=== PATIENT | female | born 1940 | race Two or more races ===

== ENCOUNTER 2020-03-02 18:00 | Inpatient (IN) | payer OTHER ==
[~2020-03-02] VITALS: Ht 154.9 cm; Wt 87.2 kg
[2020-03-02] MEDS ORDERED: SODIUM CHLORIDE 0.9% 500 ML IV ONE (18:45)
[2020-03-02] MEDS ORDERED: ONDANSETRON HCL 4 MG/2 ML VIAL IV ONE (18:45)
[2020-03-02] MEDS ORDERED: cefTRIAXone 1GM/50ML D5W 50 ML IV ONE (18:45)
[2020-03-02 19:04] LABS: Basophils # (auto) 0 10 ^3/uL (0-0.2); Basophils % (auto) 0.4 % (0.0-2.0); Eosinophils # (auto) 0 10 ^3/uL (0-0.8); Eosinophils % (auto) 0.5 % (0.0-7.0); Hematocrit 43.2 % (36.0-46.0); Hemoglobin 14.5 g/dL (12.2-16.2); Lymphocytes # (auto) 1.1 10 ^3/uL (0.4-5.4); Lymphocytes % (auto) 13.3 % (10.0-50.0); Mean Corpuscular Hemoglobin 30.2 pg (28.0-32.0); Mean Corpuscular Hgb Conc. 33.6 g/dL (32.0-36.0); Mean Corpuscular Volume 89.9 fL (80.0-100.0); Monocytes # (auto) 1.1 10 ^3/uL (0-1.3); Monocytes % (auto) 13.2 % (0.0-12.0); Neutrophils # (auto) 6.1 10 ^3/uL (1.6-8.6); Neutrophils % (auto) 72.6 % (37.0-80.0); Nucleated Red Blood Cells % 0.1 %; Platelet Count (auto) 219 10^3/uL (140-450); Red Blood Cells 4.81 10^6/uL (4.0-5.20); Red Cell Distribution Width 13.6 % (11.8-14.3); White Blood Cell 8.4 10^3/uL (4.4-10.8)
[2020-03-02 19:16] LABS: Alanine Aminotransferase 17 U/L (13-56); Albumin 3.2 g/dL (3.4-5.0); Anion Gap 6 (5-15); Aspartate Aminotransferase 14 U/L (15-37); BUN/Creatinine Ratio 15.7; Blood Urea Nitrogen 11 mg/dL (7-18); Calcium 8.4 mg/dL (8.5-10.1); Carbon Dioxide 23 mmol/L (21-32); Chloride 108 mmol/L (98-107); GFR African American 104 mL/min; GFR Non-African American 86 mL/min; Glucose 120 mg/dL (74-106); Potassium 3.6 mmol/L (3.5-5.1); Sodium 137 mmol/L (136-145)
[2020-03-02 19:20] LABS: Alkaline Phosphatase 58 U/L (45-117); Bilirubin, Total 0.6 mg/dL (0.2-1.0); Total Protein 6.7 g/dL (6.4-8.2)
[2020-03-02 19:28] LABS: Amylase 35 U/L (25-115); Lipase 50 U/L (73-393)
[2020-03-02 19:33] LABS: INR 2.04 (0.9-1.15); Partial Thromboplastin Time 33.6 sec (23.64-32.05)
[2020-03-02] MEDS ORDERED: SODIUM CHLORIDE 0.9% 1,000 ML IV SCH (21:55)
[2020-03-02] MEDS ORDERED: ACETAMINOPHEN 325 MG TAB PO PRN (22:00)
[2020-03-02] MEDS ORDERED: TEMAZEPAM 15 MG CAP PO PRN (22:00)
[2020-03-02] MEDS ORDERED: ONDANSETRON HCL 4 MG/2 ML VIAL IV PRN (22:00)
[2020-03-02] MEDS ORDERED: MORPHINE SULF INJ 2 MG/ML SYRINGE 1ML IV PRN (22:00)
[2020-03-02] MEDS ORDERED: ALBUTEROL SULF HFA 90MCG INH 200DOSE IN SCH (22:00)
[2020-03-02] MEDS ORDERED: NITROGLYCERIN 0.4 MG SL TAB SL PRN (22:00)
[2020-03-02 22:21] LABS: Urine Bacteria NONE SEEN /hpf (None Seen); Urine Blood Negative /uL (Negative); Urine Specific Gravity 1.007 (1.001-1.035); Urine WBC 12 /hpf (0 - 5)
[2020-03-02 22:29] LABS: Magnesium 2.4 mg/dL (1.6-2.6)
[2020-03-02 22:38] LABS: CRP High Sensitivity 4.26 mg/dL (< 0.3)
[2020-03-02] MEDS: DOXYCYCLINE 100MG/250ML 250 ML IV SCH (22:53)
[2020-03-02] MEDS: FAMOTIDINE 20 MG TAB PO SCH (22:53)
--- NOTE | 2020-03-03 02:50 | NUR ---
Telemetry admit from ER JIMBO JHAVERI Gutierrez admitted to Telemetry unit after SBAR received. Patient oriented to RENNY PRICE RN primary RN, unit, room, bed, and unit policies regarding patient care and visiting hours. Patient now on continuous telemetry monitoring, tele box # 20 and telemetry reading on arrival to unit is A-Fib at 86BPM. Patient placed on bedside oxygen, weighed by bedscale and encouraged to call if they need something. All questions and concerns addressed, patient verbalized understanding.
[2020-03-03 04:01] VITALS: BP 127/70
[2020-03-03] MEDS ORDERED: METO-169 PO (05:25)
[2020-03-03] MEDS ORDERED: WARF7.5T20 PO (05:25)
[2020-03-03] MEDS ORDERED: WARF2.5T39 PO (05:25)
[2020-03-03] MEDS ORDERED: WARF5TAB71 PO (05:25)
[2020-03-03] MEDS ORDERED: AMLO5TAB15 PO ×2 (05:25→16:32)
[2020-03-03 06:20] LABS: Basophils # (auto) 0 10 ^3/uL (0-0.2); Basophils % (auto) 0.1 % (0.0-2.0); Eosinophils # (auto) 0 10 ^3/uL (0-0.8); Eosinophils % (auto) 0.2 % (0.0-7.0); Hemoglobin 13.3 g/dL (12.2-16.2); Mean Corpuscular Hgb Conc. 33.2 g/dL (32.0-36.0); Mean Corpuscular Volume 90.3 fL (80.0-100.0); Monocytes # (auto) 0.9 10 ^3/uL (0-1.3); Monocytes % (auto) 11.8 % (0.0-12.0); Neutrophils # (auto) 5.8 10 ^3/uL (1.6-8.6); Neutrophils % (auto) 74.9 % (37.0-80.0); Nucleated Red Blood Cells % 0.1 %; Platelet Count (auto) 197 10^3/uL (140-450); Red Blood Cells 4.43 10^6/uL (4.0-5.20); Red Cell Distribution Width 13.4 % (11.8-14.3); White Blood Cell 7.7 10^3/uL (4.4-10.8)
[2020-03-03 06:35] LABS: INR 2.29 (0.9-1.15); Partial Thromboplastin Time 38.2 sec (23.64-32.05)
[2020-03-03 06:36] LABS: Albumin 2.8 g/dL (3.4-5.0); Calcium 7.9 mg/dL (8.5-10.1)
[2020-03-03 06:38] LABS: BUN/Creatinine Ratio 16.1
[2020-03-03 06:41] LABS: Bilirubin, Total 0.6 mg/dL (0.2-1.0); Total Protein 6.1 g/dL (6.4-8.2)
--- NOTE | 2020-03-03 07:30 | NUR ---
Opening Shift Note Assumed care of patient, asleep and arouses to name and alert. No S/S of distress/SOB or pain. Bed in lowest and locked position with side rails up x2 and call light in reach. Instructed on POC and to call for assist PRN, will continue to monitor for changes Q1hr and PRN.
--- NOTE | 2020-03-03 07:40 | NUR ---
Respiratory note: PT AWAKE, AND ALERT. NO RESPIRATORY DISTRESS NOTED. SPO2 96% ON RA, HR 94, RR 18, BS CLEAR/DIMINISHED BILATERALLY. NO FURTHER RESPIRATORY INTERVENTION INDICATED AT THIS TIME. WILL CONTINUE TO MONITOR PT.
[2020-03-03 08:00] VITALS: BP 124/68
--- NOTE | 2020-03-03 08:45 | NUR ---
PAGED DR MUJICA. AWAITING CALL BACK.
[2020-03-03] MEDS ORDERED: SUMA25TA2 (08:56)
[2020-03-03] MEDS ORDERED: SUMAtriptan SUCCINATE 25 MG TAB PO PRN (09:00)
--- NOTE | 2020-03-03 09:00 | NUR ---
RECEIVED CALL BACK FROM DR. MUJICA. RN UPDATED DR MUJICA ON THE PATIENTS "HEAD ACHE". MD AWARE AND NEW ORDERS RECEIVED, READ BACK AND VERIFIED. SEE EMR FOR ORDERS.
[2020-03-03 10:00] VITALS: BP 106/64
[2020-03-03] MEDS ORDERED: CHOLECALCIFEROL (VITD3) 1,000UNIT=25mCg TAB PO SCH (10:00)
[2020-03-03] MEDS ORDERED: amLODIPine BESYLATE 5 MG TAB PO SCH (10:00)
[2020-03-03] MEDS ORDERED: METOPROLOL SUCCINATE XL 50 MG TAB PO SCH (10:00)
[2020-03-03] MEDS ORDERED: ASCORBIC ACID 1,000 MG TAB PO SCH (10:00)
[2020-03-03] MEDS ORDERED: ZINC SULFATE 220mg CAP or TAB PO SCH (10:00)
[2020-03-03] MEDS: DOXYCYCLINE 100MG/250ML 250 ML IV SCH (10:54)
[2020-03-03] MEDS: FAMOTIDINE 20 MG TAB PO SCH (10:55)
[2020-03-03 13:00] VITALS: BP 98/65
--- NOTE | 2020-03-03 15:20 | NUR ---
IV insertion IV "fell out" per patient statement. New IV access obtained, via clean sterile technique by inserting 22 gauge catheter at LEFT FA after 1 attempt(s). IV secured properly. No trauma to site. Patient tolerated well.
--- NOTE | 2020-03-03 15:25 | NUR ---
PT TRANSFER. REPORT GIVEN TO VALARIE SAINZ. PATIENT TRANSFERRED TO ROOM 276A VIA WHEEL CHAIR. PATIENT TRANSFERRED WITH ALL PERSONAL BELONGINGS. NO S/S OF SOB OR DISTRESS AT THIS TIME.
[2020-03-03] MEDS ORDERED: DOXY-112 PO (16:32)
[2020-03-03] MEDS ORDERED: WARFARIN SODIUM 2.5 MG TAB PO ONE (17:00)
--- NOTE | 2020-03-03 17:44 | NUR ---
Discharge instructions given as ordered. Encourage to follow up with PMD as instructed. All questions and concerns addressed. Patient verbalized understanding. IV removed with catheter intact, pressure dressing applied. Telemetry unit returned to ICU. Patient taken to vehicle via wheelchair with all personal belongings, accompanied by staff and family member. No distress noted at time of departure.
== END 2020-03-03 17:44 | disposition home or self-care (01) | DRG 311 ==
LOC: EDBD 18:00 → ER 18:00 → TELE 18:01 → TELE-EAST 23:53 → TELE-WESTW 03-03 15:25
PROVIDERS: ADMIT Nurse Practitioner; ATTEND Internal Medicine
DX: I24.9 Acute ischemic heart disease, unspecified (principal); D68.9 Coagulation defect, unspecified; N39.0 Urinary tract infection, site not specified; I48.20 Chronic atrial fibrillation, unspecified; I48.0 Paroxysmal atrial fibrillation; Z03.818 Encounter for observation for suspected exposure to other biological agents ruled out; Z68.36 Body mass index [BMI] 36.0-36.9, adult; E66.01 Morbid (severe) obesity due to excess calories; E78.5 Hyperlipidemia, unspecified; G43.909 Migraine, unspecified, not intractable, without status migrainosus; I50.9 Heart failure, unspecified; R06.03 Acute respiratory distress; I11.0 Hypertensive heart disease with heart failure; Z79.01 Long term (current) use of anticoagulants; Z82.3 Family history of stroke; Z82.49 Family history of ischemic heart disease and other diseases of the circulatory system; Z90.710 Acquired absence of both cervix and uterus; Z90.49 Acquired absence of other specified parts of digestive tract
CPT/HCPCS: 36415; 71045; 80053; 81001; 82150; 82728; 83605; 83615; 83690; 83735; 83880; 84443; 84484; 85025; 85379; 85610; 85730; 86141; 87040; 87070; 87086; 87804; 87880; 93005; G0378; J0696; J2405; J3490

== ENCOUNTER 2021-02-05 09:43 | Emergency (ER) | payer OTHER ==
[~2021-02-05] VITALS: Ht 157.5 cm; Wt 79.4 kg
[~2021-02-05 09:43] MED LIST: AMLO-489 PO; DOXY-112 PO; METO-289 PO; SUMA25TA2; WARF2.5T39 PO; WARF5TAB71 PO; WARF7.5T20 PO
[2021-02-05 10:46] VITALS: BP 125/72
[2021-02-05 11:09] LABS: Urine Bacteria NONE SEEN /hpf (None Seen); Urine Blood 2+ /uL (Negative); Urine Specific Gravity 1.008 (1.001-1.035); Urine WBC <1 /hpf (0 - 5)
[2021-02-05 11:29] LABS: Basophils # (auto) 0.1 10 ^3/uL (0-0.2); Basophils % (auto) 1.1 % (0.0-2.0); Eosinophils # (auto) 0.2 10 ^3/uL (0-0.8); Eosinophils % (auto) 2.4 % (0.0-7.0); Hematocrit 42.7 % (36.0-46.0); Hemoglobin 14.4 g/dL (12.2-16.2); Lymphocytes # (auto) 1.6 10 ^3/uL (0.4-5.4); Lymphocytes % (auto) 23.4 % (10.0-50.0); Mean Corpuscular Hemoglobin 30.6 pg (28.0-32.0); Mean Corpuscular Hgb Conc. 33.7 g/dL (32.0-36.0); Monocytes # (auto) 0.8 10 ^3/uL (0-1.3); Neutrophils # (auto) 4.3 10 ^3/uL (1.6-8.6); Neutrophils % (auto) 62.1 % (37.0-80.0); Nucleated Red Blood Cells % 0.2 %; Platelet Count (auto) 194 10^3/uL (140-450); Red Blood Cells 4.69 10^6/uL (4.0-5.20); Red Cell Distribution Width 13.3 % (11.8-14.3)
[2021-02-05 11:45] LABS: Albumin 3.1 g/dL (3.4-5.0); Anion Gap 8 (5-15); Blood Urea Nitrogen 13 mg/dL (7-18); Carbon Dioxide 26 mmol/L (21-32); Chloride 107 mmol/L (98-107); Glucose 121 mg/dL (74-106); Potassium 3.8 mmol/L (3.5-5.1); Sodium 141 mmol/L (136-145)
[2021-02-05 11:50] LABS: Alanine Aminotransferase 17 U/L (13-56); Alkaline Phosphatase 56 U/L (45-117); Aspartate Aminotransferase 16 U/L (15-37); Bilirubin, Total 0.6 mg/dL (0.2-1.0); GFR African American 113 mL/min; GFR Non-African American 93 mL/min; Total Protein 6.4 g/dL (6.4-8.2)
== END 2021-02-05 12:58 | disposition home or self-care (01) ==
LOC: ER 09:43
DX: R07.89 Other chest pain (principal); I11.0 Hypertensive heart disease with heart failure; I50.9 Heart failure, unspecified; I25.2 Old myocardial infarction; Z90.49 Acquired absence of other specified parts of digestive tract; Z90.710 Acquired absence of both cervix and uterus; Z88.6 Allergy status to analgesic agent
CPT/HCPCS: 36415; 71250; 80053; 81001; 83880; 84484; 85025

== ENCOUNTER 2021-07-24 13:12 | Emergency (ER) | payer OTHER ==
[~2021-07-24] VITALS: Ht 154.9 cm; Wt 85.7 kg
[2021-07-24 14:32] LABS: Albumin 3.4 g/dL (3.4-5.0); Anion Gap 5 (5-15); Blood Urea Nitrogen 17 mg/dL (7-18); Carbon Dioxide 24 mmol/L (21-32); Chloride 111 mmol/L (98-107); Glucose 126 mg/dL (74-106); Potassium 3.8 mmol/L (3.5-5.1); Sodium 140 mmol/L (136-145)
[2021-07-24 14:35] LABS: Alanine Aminotransferase 22 U/L (13-56); Aspartate Aminotransferase 23 U/L (15-37); Bilirubin, Total 0.7 mg/dL (0.2-1.0); GFR African American 83 mL/min; GFR Non-African American 68 mL/min; Total Protein 7.4 g/dL (6.4-8.2)
[2021-07-24 14:36] VITALS: BP 94/48
[2021-07-24 15:08] LABS: Basophils # (auto) 0.1 10 ^3/uL (0-0.2); Basophils % (auto) 1.2 % (0.0-2.0); Eosinophils # (auto) 0.1 10 ^3/uL (0-0.8); Eosinophils % (auto) 1.5 % (0.0-7.0); Hematocrit 42.4 % (36.0-46.0); Hemoglobin 14.1 g/dL (12.2-16.2); Lymphocytes # (auto) 1.8 10 ^3/uL (0.4-5.4); Lymphocytes % (auto) 22.6 % (10.0-50.0); Mean Corpuscular Hemoglobin 29.6 pg (28.0-32.0); Mean Corpuscular Hgb Conc. 33.3 g/dL (32.0-36.0); Monocytes # (auto) 0.7 10 ^3/uL (0-1.3); Monocytes % (auto) 9.3 % (0.0-12.0); Neutrophils # (auto) 5.2 10 ^3/uL (1.6-8.6); Neutrophils % (auto) 65.4 % (37.0-80.0); Nucleated Red Blood Cells % 0.1 %; Red Blood Cells 4.77 10^6/uL (4.0-5.20); Red Cell Distribution Width 13.8 % (11.8-14.3); White Blood Cell 7.9 10^3/uL (4.4-10.8)
[2021-07-24 15:11] LABS: Alkaline Phosphatase 65 U/L (45-117)
[2021-07-24] MEDS ORDERED: predniSONE 20 MG TAB PO ONE (16:00)
[2021-07-24] MEDS ORDERED: PRED20TA2 PO (16:05)
== END 2021-07-24 16:36 | disposition home or self-care (01) ==
LOC: EDBD 13:12 → ER 13:12
DX: J20.9 Acute bronchitis, unspecified (principal); I48.91 Unspecified atrial fibrillation; I25.10 Atherosclerotic heart disease of native coronary artery without angina pectoris; I25.2 Old myocardial infarction; I11.0 Hypertensive heart disease with heart failure; I50.9 Heart failure, unspecified; Z90.49 Acquired absence of other specified parts of digestive tract; Z90.710 Acquired absence of both cervix and uterus; Z79.01 Long term (current) use of anticoagulants; Z79.899 Other long term (current) drug therapy; Z79.2 Long term (current) use of antibiotics; Z88.8 Allergy status to other drugs, medicaments and biological substances
CPT/HCPCS: 36415; 71045; 80053; 83880; 84484; 85025; 93005; 99285; J7512

== ENCOUNTER 2022-08-23 10:26 | Emergency (ER) | payer OTHER ==
[~2022-08-23] VITALS: Ht 154.9 cm; Wt 82.0 kg
[~2022-08-23 10:26] MED LIST changes: +PRED20TA2 PO
[2022-08-23 11:56] LABS: Albumin 2.9 g/dL (3.4-5.0); BUN/Creatinine Ratio 27.1; Calcium 8.8 mg/dL (8.5-10.1); Magnesium 2.5 mg/dL (1.6-2.6); Potassium 4.3 mmol/L (3.5-5.1)
[2022-08-23 11:59] LABS: Bilirubin, Total 0.8 mg/dL (0.2-1.0)
[2022-08-23 12:01] LABS: Basophils # (auto) 0 10 ^3/uL (0-0.2); Basophils % (auto) 0.5 % (0.0-2.0); Eosinophils # (auto) 0 10 ^3/uL (0-0.8); Eosinophils % (auto) 0.1 % (0.0-7.0); Hematocrit 38.7 % (36.0-46.0); Hemoglobin 12.6 g/dL (12.2-16.2); Lymphocytes # (auto) 0.8 10 ^3/uL (0.4-5.4); Lymphocytes % (auto) 10.6 % (10.0-50.0); Mean Corpuscular Hemoglobin 29.8 pg (28.0-32.0); Mean Corpuscular Hgb Conc. 32.7 g/dL (32.0-36.0); Mean Corpuscular Volume 91.2 fL (80.0-100.0); Monocytes # (auto) 0.8 10 ^3/uL (0-1.3); Monocytes % (auto) 10.5 % (0.0-12.0); Neutrophils # (auto) 6.1 10 ^3/uL (1.6-8.6); Neutrophils % (auto) 78.3 % (37.0-80.0); Nucleated Red Blood Cells % 0.1 %; Red Blood Cells 4.25 10^6/uL (4.0-5.20); White Blood Cell 7.8 10^3/uL (4.4-10.8)
[2022-08-23] MEDS ORDERED: AZITHROMYCIN 500MG/ 250ML 250 ML IV ONE (12:30)
[2022-08-23] MEDS ORDERED: FUROSEMIDE 40 MG/4 ML VIAL IV ONE (12:30)
[2022-08-23] MEDS ORDERED: D5W/SOD CHL 0.45% 1,000 ML IV ONE (13:00)
[2022-08-23 14:26] LABS: Urine Bacteria NONE SEEN /hpf (None Seen); Urine Blood TRACE /uL (Negative); Urine Mucus FEW (None Seen); Urine Specific Gravity 1.008 (1.001-1.035); Urine WBC 1 /hpf (0 - 5)
[2022-08-23 15:34] VITALS: BP 114/72
== END 2022-08-23 16:01 | disposition short-term general hospital (02) ==
LOC: ER 10:26 → EDBD 10:26 → ER 16:01
DX: J44.1 Chronic obstructive pulmonary disease with (acute) exacerbation (principal); I48.91 Unspecified atrial fibrillation; I50.89 Other heart failure; I11.0 Hypertensive heart disease with heart failure; I25.2 Old myocardial infarction; E78.5 Hyperlipidemia, unspecified; I25.10 Atherosclerotic heart disease of native coronary artery without angina pectoris; Z90.49 Acquired absence of other specified parts of digestive tract; Z90.710 Acquired absence of both cervix and uterus; Z20.822 Contact with and (suspected) exposure to COVID-19
CPT/HCPCS: 36415; 71045; 80053; 81001; 83605; 83735; 83880; 84484; 85025; 87040; 87426; 93005; 96365; 96366; 96375; 99291; J0456; J1940

== ENCOUNTER 2022-09-27 02:16 | Emergency (ER) | payer OTHER ==
[~2022-09-27] VITALS: Ht 154.9 cm; Wt 81.8 kg
[2022-09-27] MEDS ORDERED: MORPHINE SULFATE 4 MG/ML SYR/VIAL IM ONE (03:15)
[2022-09-27] MEDS ORDERED: ONDANSETRON ODT 4 MG TAB PO ONE (03:15)
[2022-09-27 05:15] VITALS: BP 137/91
== END 2022-09-27 06:36 | disposition home or self-care (01) ==
LOC: EDBD 02:16 → EDUNIT# 02:16 → ER 02:16
DX: S16.1XXA Strain of muscle, fascia and tendon at neck level, initial encounter (principal); I48.91 Unspecified atrial fibrillation; J44.9 Chronic obstructive pulmonary disease, unspecified; I10 Essential (primary) hypertension; Z90.49 Acquired absence of other specified parts of digestive tract; Z91.011 Allergy to milk products; Z79.899 Other long term (current) drug therapy; Z90.710 Acquired absence of both cervix and uterus; X58.XXXA Exposure to other specified factors, initial encounter; Y93.89 Activity, other specified; Y92.89 Other specified places as the place of occurrence of the external cause; Y99.8 Other external cause status
CPT/HCPCS: 96372; 99283; J2270; Q0162

== ENCOUNTER 2023-07-27 20:40 | Inpatient (IN) | payer OTHER ==
[~2023-07-27] VITALS: Ht 167.6 cm; Wt 88.0 kg
[~2023-07-27 20:40] MED LIST changes: -AMLO-489 PO; +AMLO1TAB22 PO; -DOXY-112 PO; +DOXY-267 PO; +WARF-110 PO; +WARF-114 PO; +WARF-66 PO; -WARF2.5T39 PO; -WARF5TAB71 PO; -WARF7.5T20 PO
[2023-07-27 21:51] LABS: Basophils # (auto) 0.1 10 ^3/uL (0-0.2); Basophils % (auto) 1.5 % (0.0-2.0); Eosinophils # (auto) 0.2 10 ^3/uL (0-0.8); Hematocrit 39.7 % (36.0-46.0); Hemoglobin 13.3 g/dL (12.2-16.2); Lymphocytes # (auto) 1.5 10 ^3/uL (0.4-5.4); Lymphocytes % (auto) 17.9 % (10.0-50.0); Mean Corpuscular Hemoglobin 30.6 pg (28.0-32.0); Mean Corpuscular Hgb Conc. 33.5 g/dL (32.0-36.0); Mean Corpuscular Volume 91.5 fL (80.0-100.0); Monocytes # (auto) 0.8 10 ^3/uL (0-1.3); Monocytes % (auto) 9.6 % (0.0-12.0); Neutrophils # (auto) 5.7 10 ^3/uL (1.6-8.6); Nucleated Red Blood Cells % 0.1 %; Red Blood Cells 4.34 10^6/uL (4.0-5.20); Red Cell Distribution Width 13.8 % (11.8-14.3); White Blood Cell 8.3 10^3/uL (4.4-10.8)
[2023-07-27 22:00] LABS: Alanine Aminotransferase 25 U/L (7-40); Albumin 3.6 g/dL (3.2-4.8); Alkaline Phosphatase 71 U/L (46-116); Anion Gap 8 (5-15); Aspartate Aminotransferase 21 U/L (13-40); Blood Urea Nitrogen 16 mg/dL (9-23); Carbon Dioxide 26 mmol/L (20-30); Chloride 110 mmol/L (98-107); Glucose 133 mg/dL (74-106); Magnesium 1.7 mg/dL (1.6-2.6); Potassium 3.9 mmol/L (3.5-5.1); Sodium 144 mmol/L (136-145)
[2023-07-27 22:01] LABS: Bilirubin, Total 0.6 mg/dL (0.2-1.0); Total Protein 5.6 g/dL (5.7-8.2)
[2023-07-27 22:16] LABS: INR 1.01 (0.9-1.15); Partial Thromboplastin Time 25.8 SEC (24.5-34.5); Prothrombin Time 10.6 sec (9.3-11.8)
[2023-07-28] VITALS (9 sets, daily range): BP systolic 112–123; BP diastolic 53–68; PULSE 73–82; RESP 16–18; TEMP 97.6–98.3; O2SAT 95–100
[2023-07-28] MEDS ORDERED: MORPHINE SULFATE INJ 2 MG/ml SYRG IV PRN (04:30)
[2023-07-28] MEDS ORDERED: ONDANSETRON HCL 4 MG/2 ML VIAL IV PRN (04:30)
[2023-07-28] MEDS ORDERED: hydrALAZINE HCL 10 MG TAB PO PRN (04:30)
[2023-07-28] MEDS ORDERED: FUROSEMIDE 40 MG/4 ML VIAL IV ONE (04:30)
[2023-07-28] MEDS ORDERED: NITROGLYCERIN 0.4 MG SL TAB SL PRN (04:30)
[2023-07-28] MEDS ORDERED: ACETAMINOPHEN 325 MG TAB PO PRN (04:30)
[2023-07-28] MEDS ORDERED: HYDROcodone-ACET 5/325MG TAB PO PRN (04:30)
[2023-07-28] MEDS ORDERED: POLYETHYLENE GLYCOL 17 GM PWDR PO PRN (05:45)
[2023-07-28] MEDS ORDERED: PANTOPRAZOLE 40 MG/10 ML VIAL INJ IV SCH (10:00)
[2023-07-28] MEDS ORDERED: ASPirin-EC 81 mg tab PO SCH (10:00)
[2023-07-28] MEDS ORDERED: ENOXAPARIN SOD 40 MG/0.4 ML SYRINGE SC SCH (10:00)
[2023-07-28] MEDS ORDERED: LISI20TA56 PO (15:13)
[2023-07-28] MEDS ORDERED: FURO40TA4 PO (15:13)
[2023-07-28] MEDS ORDERED: METO1TAB9 PO (15:13)
[2023-07-28] MEDS ORDERED: APIX5TAB PO (15:13)
[2023-07-28] MEDS ORDERED: PANT40T PO (15:13)
[2023-07-28] MEDS ORDERED: HYDR-4902 PO (15:13)
[2023-07-28] MEDS ORDERED: POTA-228 PO (15:13)
[2023-07-28] MEDS: FUROSEMIDE 40 MG/4 ML VIAL IV SCH (18:27)
[2023-07-28] MEDS: IPRATROPIUM BROM 0.5 MG/2.5ML INH SOL NEB SCH (19:08)
[2023-07-28] MEDS: ALBUTEROL SULF 2.5 MG/0.5ML(0.5%) NEB SOLN NEB SCH (19:08)
[2023-07-28] MEDS: ATORVASTATIN 20 MG TAB PO SCH (21:13)
[2023-07-28] MEDS: APIXABAN 2.5 MG TAB PO SCH (21:13)
[2023-07-28] MEDS: BUDESONIDE (INHALATION) 0.5 MG/2 ML NEB NEB SCH (22:11)
[2023-07-29] VITALS (16 sets, daily range): BP systolic 110–132; BP diastolic 60–77; PULSE 74–118; RESP 16–20; TEMP 97.4–98.7; O2SAT 93–100
[2023-07-29 06:01] LABS: Calcium 9.7 mg/dL (8.7-10.4); Chloride 103 mmol/L (98-107); Sodium 140 mmol/L (136-145)
[2023-07-29 06:02] LABS: Anion Gap 6 (5-15); Carbon Dioxide 31 mmol/L (20-30)
[2023-07-29 06:07] LABS: BUN/Creatinine Ratio 14.3 (10.0-20.0); Blood Urea Nitrogen 13 mg/dL (9-23); Glucose 105 mg/dL (74-106)
[2023-07-29 06:08] LABS: Magnesium 1.8 mg/dL (1.6-2.6)
[2023-07-29] MEDS: FUROSEMIDE 40 MG/4 ML VIAL IV SCH (06:12)
[2023-07-29] MEDS: IPRATROPIUM BROM 0.5 MG/2.5ML INH SOL NEB SCH ×2 (07:06→12:34)
[2023-07-29] MEDS: ALBUTEROL SULF 2.5 MG/0.5ML(0.5%) NEB SOLN NEB SCH ×2 (07:06→12:34)
[2023-07-29] MEDS: BUDESONIDE (INHALATION) 0.5 MG/2 ML NEB NEB SCH ×2 (07:06→18:44)
[2023-07-29] MEDS ORDERED: LOPE2CAP PO (08:56)
[2023-07-29] MEDS ORDERED: ALBUAER3 IN (08:56)
[2023-07-29] MEDS ORDERED: SUMA50TA2 PO (08:57)
[2023-07-29] MEDS ORDERED: POTASSIUM CHL 20 Meq TABLET PO ONE (10:15)
[2023-07-29] MEDS: APIXABAN 2.5 MG TAB PO SCH (12:02)
[2023-07-29] MEDS: POTASSIUM EFFERVESENT TAB 25 MEQ PO SCH (12:03)
[2023-07-29] MEDS: METOPROLOL SUCCINATE XL 50 MG TAB PO SCH (18:08)
[2023-07-29] MEDS: ALBUTEROL SULF 2.5 MG/0.5ML(0.5%) NEB SOLN NEB PRN (18:43)
[2023-07-29] MEDS: IPRATROPIUM BROM 0.5 MG/2.5ML INH SOL NEB PRN (18:44)
[2023-07-29] MEDS: HYDROcodone-ACET 5/325MG TAB PO SCH ×2 (21:21→22:00)
[2023-07-29] MEDS: ATORVASTATIN 20 MG TAB PO SCH (21:21)
[2023-07-29] MEDS: APIXABAN 5 MG TAB PO SCH (21:22)
[2023-07-30] VITALS (7 sets, daily range): BP systolic 105–129; BP diastolic 60–78; PULSE 53–96; RESP 16–20; TEMP 98–98.9; O2SAT 93–100
[2023-07-30] MEDS: HYDROcodone-ACET 5/325MG TAB PO SCH ×2 (05:36→13:39)
[2023-07-30 06:22] LABS: Calcium 9.7 mg/dL (8.5-10.1); Chloride 103 mmol/L (98-107); Potassium 4.7 mmol/L (3.5-5.1); Sodium 140 mmol/L (136-145)
[2023-07-30 06:23] LABS: Anion Gap 7 (5-15); Carbon Dioxide 30 mmol/L (20-30)
[2023-07-30 06:28] LABS: BUN/Creatinine Ratio 14.3 (10.0-20.0); Blood Urea Nitrogen 18 mg/dL (9-23); Glucose 103 mg/dL (74-106)
[2023-07-30] MEDS: ALBUTEROL SULF 2.5 MG/0.5ML(0.5%) NEB SOLN NEB PRN (07:09)
[2023-07-30] MEDS: IPRATROPIUM BROM 0.5 MG/2.5ML INH SOL NEB PRN (07:09)
[2023-07-30] MEDS: BUDESONIDE (INHALATION) 0.5 MG/2 ML NEB NEB SCH (07:09)
[2023-07-30] MEDS: POTASSIUM EFFERVESENT TAB 25 MEQ PO SCH (08:55)
[2023-07-30] MEDS: APIXABAN 5 MG TAB PO SCH (08:55)
[2023-07-30] MEDS: METOPROLOL SUCCINATE XL 50 MG TAB PO SCH (08:56)
[2023-07-30] MEDS ORDERED: FUROSEMIDE 40 MG/4 ML VIAL IV SCH (10:00)
[2023-07-30] MEDS ORDERED: PANTOPRAZOLE 40 MG TAB PO SCH (10:00)
[2023-07-30] MEDS ORDERED: POTA-228 PO (13:22)
[2023-07-30] MEDS ORDERED: FURO40TA4 PO (13:22)
[2023-07-30] MEDS ORDERED: IPRA0.00 IN (13:22)
== END 2023-07-30 16:24 | disposition home health service (06) | DRG 190 ==
LOC: ER 20:40 → EDBD 20:40 → TELE 07-28 04:38 → OBSVTOIN 07-28 04:52 → TELE-WESTW 07-28 14:05
PROVIDERS: ADMIT Nurse Practitioner Family; ATTEND Nurse Practitioner Family
DX: J44.1 Chronic obstructive pulmonary disease with (acute) exacerbation (principal); I50.43 Acute on chronic combined systolic (congestive) and diastolic (congestive) heart failure; I48.91 Unspecified atrial fibrillation; R09.02 Hypoxemia; I11.0 Hypertensive heart disease with heart failure; R09.89 Other specified symptoms and signs involving the circulatory and respiratory systems; Z90.49 Acquired absence of other specified parts of digestive tract; Z90.710 Acquired absence of both cervix and uterus; Z91.09 Other allergy status, other than to drugs and biological substances; Z79.899 Other long term (current) drug therapy; Z99.81 Dependence on supplemental oxygen; Z79.01 Long term (current) use of anticoagulants
CPT/HCPCS: 36415; 71045; 80048; 80053; 83735; 83880; 84439; 84443; 84484; 85025; 85610; 85730; 93005; 93306; 94640; 96372; 96374; 96375; C9113; G0378; J2405

== ENCOUNTER 2024-11-15 02:26 | Inpatient (IN) | payer MEDICARE ==
[~2024-11-15] VITALS: Ht 160 cm; Wt 87.7 kg
[~2024-11-15 02:26] MED LIST changes: +ALBU108A5 IN; +ALBU108A5 INH; -AMLO1TAB22 PO; +APIX5TAB PO; +ATOR-507 PO; +ATOR20TA50 PO; +ATOR40TA52 PO; +AZITTAB PO; +BENZ100C97 PO; +CARV-214 PO; +CLOP75TA70 PO; -DOXY-267 PO; +FAMO20TA10 PO; +FURO20TA4 PO; +FURO40TA4 PO; +GUAI-52 PO; +HYDR-4902 PO; +IPRA0.00 IN; +LISI-275 PO; +LISI20TA56 PO; +LOPE2CAP PO; +METH4PAK PO; +METO1TAB9 PO; +PANT40T PO; +POTA-211 PO; +POTA-228 PO; -SUMA25TA2; +SUMA50TA2 PO; +TIOT17SP INH; -WARF-110 PO; -WARF-114 PO; -WARF-66 PO
[2024-11-15 03:15] LABS: Basophils # (auto) 0.1 10 ^3/uL (0-0.2); Basophils % (auto) 0.8 % (0.0-2.0); Eosinophils # (auto) 0.2 10 ^3/uL (0-0.8); Eosinophils % (auto) 2.9 % (0.0-7.0); Hematocrit 43.1 % (36.0-46.0); Hemoglobin 14.3 g/dL (12.2-16.2); Lymphocytes # (auto) 1.7 10 ^3/uL (0.4-5.4); Lymphocytes % (auto) 20.7 % (10.0-50.0); Mean Corpuscular Hemoglobin 30.9 pg (28.0-32.0); Mean Corpuscular Hgb Conc. 33.2 g/dL (32.0-36.0); Mean Corpuscular Volume 93.1 fL (80.0-100.0); Monocytes # (auto) 1.1 10 ^3/uL (0-1.3); Monocytes % (auto) 13.4 % (0.0-12.0); Neutrophils % (auto) 62.2 % (37.0-80.0); Nucleated Red Blood Cells % 0.1 %; Platelet Count (auto) 252 10^3/uL (140-450); Red Blood Cells 4.62 10^6/uL (4.0-5.20); Red Cell Distribution Width 13.9 % (11.8-14.3); White Blood Cell 8.1 10^3/uL (4.4-10.8)
[2024-11-15 03:45] LABS: Alanine Aminotransferase 14 U/L (7-40); Albumin 3.7 g/dL (3.2-4.8); Alkaline Phosphatase 62 U/L (46-116); Anion Gap 9 (5-15); Aspartate Aminotransferase 31 U/L (13-40); BUN/Creatinine Ratio 20.4 (10.0-20.0); Bilirubin, Total 0.8 mg/dL (0.2-1.0); Carbon Dioxide 25 mmol/L (20-31); Chloride 107 mmol/L (98-107); Potassium 4.4 mmol/L (3.5-5.1); Sodium 141 mmol/L (136-145); Total Protein 5.8 g/dL (5.7-8.2)
[2024-11-15 03:46] LABS: Blood Urea Nitrogen 23 mg/dL (9-23); Glucose 116 mg/dL (74-106)
[2024-11-15] MEDS: ASPirin 81 mg TAB PO ONE (03:53)
--- NOTE | 2024-11-15 03:57 | ED.PDOC ---
History of Present Illness HPI Comments 84 y/o F, with a asthma, AFIB, CAD, CHF, COPD, HLD, HTN, VT, PTCA, mitral clip, and status post coronary angiography with thrombus extraction from the LAD, is BIBA for c/o diaphoresis, today. Per EMS report, patient endorses on unprovoked onset of symptom in addition to feeling "weird," this morning, after recent hospital admission discharge for VT on 11/12/24. She was commented to have been found with ST elevations via 12lead EKG in V2, 3, and 4 and was given ASA and 4mg Zofran en route by EMS. Upon arrival to ED, patient denies having any chest pain, worsening of chronic shortness of breath, palpitations, dizziness, fever, chills, or other associated symptoms or modifiers at this time. Chief Complaint: STEMI Time Seen by : 03:00 Primary Care Provider: Eliecerk Reviewed Notes: Nurses Notes, Government Clerk Notes, Medications, Allergies Allergies: Coded Allergies: NO KNOWN ALLERGIES (Unverified , 09/27/22) Home Meds Active Scripts Famotidine (PEPCID TABLET) 20 Mg Tb, 1 TAB PO BID, #60 TAB 0 Refills Prov:PERCY HAYES MD 11/12/24 Potassium Chloride (Klor-Con 10) 10 Meq Tab, 10 MEQ PO DAILY for 30 Days, #30 TAB 0 Refills Prov:PERCY HAYES MD 11/12/24 Lisinopril (Lisinopril) 5 Mg Tab, 5 MG PO DAILY for 30 Days, #30 TAB 0 Refills Prov:PERCY HAYES MD 11/12/24 Furosemide (Furosemide) 20 Mg Tab, 20 MG PO DAILY for 30 Days, #30 TAB 0 Refills Prov:PERCY HAYES MD 11/12/24 Carvedilol (COREG) 3.125 Mg Tab, 3.125 MG PO BID for 30 Days, #60 TAB 0 Refills Prov:PERCY HAYES MD 11/12/24 Atorvastatin Calcium (ATORVASTATIN CALCIUM) 20 Mg Tab, 20 MG PO HS for 30 Days, #30 TAB 0 Refills Prov:PERCY HAYES MD 11/12/24 Apixaban Base (ELIQUIS) 5 Mg Tab, 5 MG PO BID for 30 Days, #60 TAB 0 Refills Prov:PERCY HAYES MD 11/12/24 Reported Medications Hydrocodone-Acetaminophen (Hydrocodone Bitartrate/AC 5-325 mg) 1 Tab Tab, 1 TAB PO Q12HR PRN for 15 Days, #30 11/10/24 Metoprolol Succinate (Metoprolol Succinate Er) 50 Mg Tab, 100 MG PO DAILY for 90 Days, #90 11/10/24 Clopidogrel Bisulfate (CLOPIDOGREL) 75 Mg Tab, 1 TAB PO DAILY for 30 Days, #30 11/10/24 Discontinued Reported Medications Lisinopril (Lisinopril) 20 Mg Tab, 1 TAB PO DAILY for 90 Days, #90 11/10/24 Furosemide (Furosemide) 40 Mg Tab, 1 TAB PO DAILY for 90 Days, #90 11/10/24 Information Source: Patient, Emergency Med Personnel Mode of Arrival: EMS Severity: Moderate Past Medical History PAST MEDICAL HISTORY: AFIB, Asthma, CAD, CHF, COPD, High Lipids, HTN, VT Past Medical History (Other): Mitral clip, internal hemmorrhods Surgical History: PTCA Surgical History (Other): status post coronary angiography with thrombus extraction from the LAD 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 all 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 Hx Family History Family History: Unknown Social History Smoker: Non-Smoker Alcohol: Denies ETOH Use Drugs: Denies Drug Use Lives In: Home Constitutional: reports: diaphoresis All Other Systems: Reviewed and Negative (negative unless otherwise stated above or in HPI) Physical Exam General Appearance: No Apparent Distress, Normal HEENT: Normal ENT Inspection, Pharynx Normal, TMs Normal Neck: Full Range of Motion, Non-Tender, Normal, Normal Inspection Respiratory: Chest Non-Tender, Lungs Clear, No Accessory Muscle Use, No Respiratory Distress, Normal Breath Sounds Cardiovascular: No Edema, No JVD, No Murmur, No Gallop, Normal Peripheral Pulses, Regular Rate/Rhythm Breast Exam: Deferred Gastrointestinal: No Organomegaly, Non Tender, No Pulsatile Mass, Normal Bowel Sounds, Soft Genitalia: Deferred Pelvic: Deferred Rectal: Deferred Extremities: Leg edema (bilateral lower extremities ), No calf tenderness, Normal capillary refill, Normal range of motion, Non-tender Musculoskeletal : Apperance: Normal Neurologic: Alert, well logging mud analysis captain II-XII nml as Tested, No Motor Deficits, Normal Affect, Normal Mood, No Sensory Deficits Cerebellar Function: Normal Reflexes: Normal Skin: Dry, Normal Color, Warm Lymphatic: No Adenopathy Was a procedure done? Was a procedure done?: No EKG EKG : Pulse Rate (adult): 96 [place]: Normal Cardiac Rhythm: Afib Block: None Hypertrophy: None ST: New, Lat, Infarct Differential Dx Considerations may include: STEMI, PE, ACS, PNA, costochondritis, pericarditis, angina, musculoskeletal pain, post-op complication, viral syndrome X-Ray, Labs, Meds, VS Vital Signs Date Time Temp Pulse Resp B/P (MAP) Pulse Ox O2 Delivery O2 Flow Rate FiO2 11/15/24 04:00 88 18 101/63 (76) 93 11/15/24 03:57 96 11/15/24 03:44 83 11/15/24 03:18 97.7 95 20 92/40 (57) 96 97.7 11/15/24 03:15 Room Air* 0 21 11/15/24 02:45 90 11/15/24 02:42 83 11/15/24 02:34 97.6 98 14 108/81 (90) 100 11/15/24 02:29 96 Lab Test 11/15/24 03:28 11/15/24 02:37 Range/Units Troponin I High Sensitivity 4237 *H 4352 *H </=34 ng/L White Blood Count 8.1 4.4-10.8 10^3/uL Red Blood Count 4.62 4.0-5.20 10^6/uL Hemoglobin 14.3 12.2-16.2 g/dL Hematocrit 43.1 36.0-46.0 % Mean Corpuscular Volume 93.1 80.0-100.0 fL Mean Corpuscular Hemoglobin 30.9 28.0-32.0 pg Mean Corpuscular Hemoglobin Concent 33.2 32.0-36.0 g/dL Red Cell Distribution Width 13.9 11.8-14.3 % Platelet Count 252 140-450 10^3/uL Mean Platelet Volume 8.6 6.9-10.8 fL Neutrophils (%) (Auto) 62.2 37.0-80.0 % Lymphocytes (%) (Auto) 20.7 10.0-50.0 % Monocytes (%) (Auto) 13.4 H 0.0-12.0 % Eosinophils (%) (Auto) 2.9 0.0-7.0 % Basophils (%) (Auto) 0.8 0.0-2.0 % Neutrophils # (Auto) 5.0 1.6-8.6 10 ^3/uL Lymphocytes # (Auto) 1.7 0.4-5.4 10 ^3/uL Monocytes # (Auto) 1.1 0-1.3 10 ^3/uL Eosinophils # (Auto) 0.2 0-0.8 10 ^3/uL Basophils # (Auto) 0.1 0-0.2 10 ^3/uL Nucleated Red Blood Cells 0.1 % Sodium Level 141 136-145 mmol/L Potassium Level 4.4 3.5-5.1 mmol/L Chloride Level 107 98-107 mmol/L Carbon Dioxide Level 25 20-31 mmol/L Anion Gap 9 5-15 Blood Urea Nitrogen 23 9-23 mg/dL Creatinine 1.13 H 0.550-1.02 mg/dL Glomerular Filtration Rate Calc 48 >90 mL/min BUN/Creatinine Ratio 20.4 H 10.0-20.0 Serum Glucose 116 H 74-106 mg/dL Calcium Level 10.0 8.7-10.4 mg/dL Magnesium Level 2.0 1.6-2.6 mg/dL Total Bilirubin 0.8 0.2-1.0 mg/dL Aspartate Amino Transferase (AST) 31 13-40 U/L Alanine Aminotransferase (ALT) 14 7-40 U/L Alkaline Phosphatase 62 46-116 U/L Total Protein 5.8 5.7-8.2 g/dL Albumin 3.7 3.2-4.8 g/dL Triglycerides Level 140 < 150 mg/dL Cholesterol Level 195 < 200 mg/dL LDL Cholesterol 129 H < 100 mg/dL HDL Cholesterol 48 40-59 mg/dL Current Medications Medications (Trade) Dose Ordered Sig/Radha Route Start Time Stop Time Status Last Admin Aspirin 324 mg ONCE ONCE PO 11/15/24 03:15 11/15/24 03:16 DC 11/15/24 03:[address] [address] Ph: [phone] DIAGNOSTIC IMAGING Diagnostic Imaging Report : [id number] Signed PATIENT: JIMBO JHAVERI ACCT: [id number] UNIT: [id number] : 1940 LOC: ER ROOM / BED: / AGE / SEX: 84 / F ADM STATUS: REG ER SERVICE 1 ORDERING PHYSICIAN: RAMYA KING MD PROCEDURE(s): CXRP - CHEST PORTABLE REASON: sob ORDER NUMBER(s): [id number], ACCESSION NUMBER(s): [id number] CHEST RADIOGRAPH Indication: sob Technique: Single frontal view of the chest was obtained COMPARISON: XY CHEST PORTABLE on DOS: 11/11/24, XY CHEST PORTABLE on DOS: 11/09/24 FINDINGS: Lines and Tubes: None Lungs: Clear Pleura: No effusion. No pneumothorax. Cardiomediastinal contours: Unremarkable Bones: Unremarkable IMPRESSION: 1. Clear lungs. ATED BY: KATHY TORRES MD DICTATED DATE/TIME: 11/15/24404 SIGNED BY: KATHY TORRES MD SIGNED DATE/TIME: 11/15/24404 CC: First 1352. Second troponin is 4237. These troponin probably represents elevation from status post thrombectomy doing cardiac catheterization three days ago. EKG showed a lot of artifact by thought it was not a STEMI and we will consult. The patient had no chest pain only shortness of breath with diaphoresis. CBC is normal. CMP is essentially normal. The patient will be admitted to the hospitalist for further evaluation and care. Time of 1ST Reevaluation: 03:30 Reevaluation 1ST: Unchanged Patient Education/Counseling: Diagnosis, Treatment Family Education/Counseling: No Family Present Departure 1 Departure Time of Disposition: 05:19 Impression: Primary Impression: Acute coronary syndrome Additional Impression: Elevated troponin Disposition: 09 ADMITTED INPATIENT Admit to: Tele Condition: Critical Critical Care Note Critical Care Time?: Yes (35 min-critical care time only) Stability Stability form required: No Heart Score Heart Score: Heart Score Response (Comments) Value History Highly Suspicious 2 EKG Normal 0 Age >65 2 Risk Factors >3 or Hx ASHD 2 Troponin >3 x's Normal limit 2 Total 8 I personally scribed for RAMYA KING MD ([email or web address]) on 11/15/24 at 03:57. Elect ronically submitted by Hemanth Jin ([email or web address]). I personally scribed for RAMYA KING MD ([email or web address]) on 11/15/24 at 04:13. Electronically submitted by Hemanth Jin ([email or web address]). I personally scribed for RAMYA KING MD ([email or web address]) on 11/15/24 at 04:13. Electronically submitted by Hemanth Jin ([email or web address]). RAMYA KING MD Nov 15, 2024 03:57
--- NOTE | 2024-11-15 04:07 | DVH ---
CHEST RADIOGRAPH Indication: sob Technique: Single frontal view of the chest was obtained COMPARISON: XY CHEST PORTABLE on DOS: 11/11/24, XY CHEST PORTABLE on DOS: 11/09/24 FINDINGS: Lines and Tubes: None Lungs: Clear Pleura: No effusion. No pneumothorax. Cardiomediastinal contours: Unremarkable Bones: Unremarkable IMPRESSION: 1. Clear lungs.
[2024-11-15 04:27] LABS: Triglycerides 140 mg/dL (< 150)
[2024-11-15 04:29] LABS: Cholesterol 195 mg/dL (< 200); HDL Cholesterol 48 mg/dL (40-59)
[2024-11-15 04:37] LABS: LDL Cholesterol 129 mg/dL (< 100)
--- NOTE | 2024-11-15 06:14 | ECG ---
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
[2024-11-15 08:00] VITALS: PULSE 84; RESP 25; O2SAT 94
[2024-11-15] MEDS ORDERED: FURO40TA4 PO (08:37)
[2024-11-15] MEDS ORDERED: NITROGLYCERIN 0.4 MG SL TAB SL PRN (08:45)
[2024-11-15] MEDS ORDERED: ACETAMINOPHEN 325 MG TAB PO PRN (08:45)
[2024-11-15] MEDS ORDERED: MORPHINE SULFATE INJ 2 MG/ml SYRG IV PRN (08:45)
[2024-11-15] MEDS: HEPARIN DRIP/D5W 100UNITS/ML 250 ML IV SCH (08:45)
[2024-11-15] MEDS: HEPARIN SODIUM (PORCINE) 5000 UNITS/ML 1ML VIAL IV ONE (08:45)
[2024-11-15] MEDS ORDERED: DOCUSATE SOD 100 MG CAP PO PRN (08:45)
[2024-11-15] MEDS ORDERED: ONDANSETRON HCL 4 MG/2 ML VIAL IV PRN (08:45)
--- NOTE | 2024-11-15 09:02 | DVHHP2 ---
History of Present Illness Reason for Visit: Nausea/Diaphoresis History of Present Illness Delmi Cornejo is an 84-year-old female with a past medical history of hypertension, hyperlipidemia, COPD, asthma, atrial fibrillation, coronary artery disease, CHF, and CT 11/10/2024. Patient was seen here on 11/10/2024 for STEMI. 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 Patient was sent home on Friday. She was supposed to be on Eliquis and Plavix on dischargee, but states she did not have the medications. Patient states that she recently had a stent placed in her leg and was supposed to be on Plavix prior to her last admission. She states that she was looking at her medications last night and was out of the Plavix. Patient came into the hospital this morning due to nausea and diaphoresis. She states she similar to how she felt last week with her heart attack, but not as severe. Cardiovascular: AFIB, CAD, CHF, HTN, CT (11/10/2024), hyperipidemia, Other Past Surgical History: Appendectomy, Cholecystectomy, Hysterectomy, Other (Mitral clip) Smoke: No ALCOHOL: none Drugs: None Lives: with Family Domestic Violence: Neg Review of Systems Constitutional: Yes: Sweats; No: Fever, Chills, Weakness, Malaise, Other Eyes: No: Pain, Vision change, Conjunctivae inflammation, Eyelid inflammation, Other, Redness ENT: No: Ear pain, Ear discharge, Nose pain, Nose discharge, Nose congestion, Mouth pain, Mouth swelling, Throat pain, Throat swelling, Other Respiratory: Shortness of breath; No: Cough, Dry, SOB with excertion, Wheezing, Hemoptysis, Pleuritic Pain, Sputum, Wheezing, Other Cardiovascular: No: Chest Pain, Palpitations, Orthopnea, Paroxysmal Noc. Dyspnea, Edema, Lt Headedness, Other Gastrointestinal: Nausea; No: Vomiting, Abdominal Pain, Diarrhea, Constipation, Melena, Hematochezia, Other Genitourinary: No Dysuria, No Frequency, No Incontinence, No Hematuria, No Retention, No Other Musculoskeletal: No: other, neck pain, shoulder pain, arm pain, back pain, hand pain, leg pain, foot pain Skin: No: Rash, Lesions, Jaundice, Bruising, Other Neurological: No: Weakness, Numbness, Incoordination, Change in speech, Confusion, Seizures, Other Allergies: Coded Allergies: NO KNOWN ALLERGIES (Unverified , 09/27/22) Medications Current Medications Medications Dose Ordered Sig/Radha Route Start Time Stop Time Status Last Admin Dose Admin Sodium Chloride 10 ml Q8HR IV 11/15/24 14:00 UNV Acetaminophen 325 mg Q4HP PRN PO 11/15/24 08:45 UNV Acetaminophen/ Hydrocodone Bitart 1 tab Q4HP PRN PO 11/15/24 08:45 UNV Ondansetron HCl 4 mg Q4HP PRN IV 11/15/24 08:45 UNV Docusate Sodium 100 mg BIDPRN PRN PO 11/15/24 08:45 UNV Nitroglycerin 0.4 mg Q5MINP PRN SL 11/15/24 08:45 UNV Morphine Sulfate 2 mg Q30M PRN IV 11/15/24 08:45 UNV Exam Vital Signs Vital Signs Date Time Temp Pulse Resp B/P (MAP) Pulse Ox O2 Delivery O2 Flow Rate FiO2 11/15/24 06:00 79 11/15/24 06:00 15 102/60 (74) 97 11/15/24 03:18 97.7 97.7 11/15/24 03:15 Room Air* 0 21 General Appearance: Alert, Oriented X3, Cooperative, mild distress HEENT: Atraumatic Respiratory: Clear to auscultation, Normal air movement Cardiovascular: Normal S1, Normal S2, Other (atrail fibrillation) Abdominal: Normal bowel sounds, Soft Extremities: No clubbing, No cyanosis, Other (bilateral lower extremity edema) Skin: No rashes, No breakdown Neuro: Normal speech Psych/Mental Status: Mental status NL, Mood NL Labs/Xrays Labs Test 11/15/24 05:20 11/15/24 02:37 Range/Units Troponin I High Sensitivity 3779 *H </=34 ng/L White Blood Count 8.1 4.4-10.8 10^3/uL Red Blood Count 4.62 4.0-5.20 10^6/uL Hemoglobin 14.3 12.2-16.2 g/dL Hematocrit 43.1 36.0-46.0 % Mean Corpuscular Volume 93.1 80.0-100.0 fL Mean Corpuscular Hemoglobin 30.9 28.0-32.0 pg Mean Corpuscular Hemoglobin Concent 33.2 32.0-36.0 g/dL Red Cell Distribution Width 13.9 11.8-14.3 % Platelet Count 252 140-450 10^3/uL Mean Platelet Volume 8.6 6.9-10.8 fL Neutrophils (%) (Auto) 62.2 37.0-80.0 % Lymphocytes (%) (Auto) 20.7 10.0-50.0 % Monocytes (%) (Auto) 13.4 H 0.0-12.0 % Eosinophils (%) (Auto) 2.9 0.0-7.0 % Basophils (%) (Auto) 0.8 0.0-2.0 % Neutrophils # (Auto) 5.0 1.6-8.6 10 ^3/uL Lymphocytes # (Auto) 1.7 0.4-5.4 10 ^3/uL Monocytes # (Auto) 1.1 0-1.3 10 ^3/uL Eosinophils # (Auto) 0.2 0-0.8 10 ^3/uL Basophils # (Auto) 0.1 0-0.2 10 ^3/uL Nucleated Red Blood Cells 0.1 % Sodium Level 141 136-145 mmol/L Potassium Level 4.4 3.5-5.1 mmol/L Chloride Level 107 98-107 mmol/L Carbon Dioxide Level 25 20-31 mmol/L Anion Gap 9 5-15 Blood Urea Nitrogen 23 9-23 mg/dL Creatinine 1.13 H 0.550-1.02 mg/dL Glomerular Filtration Rate Calc 48 >90 mL/min BUN/Creatinine Ratio 20.4 H 10.0-20.0 Serum Glucose 116 H 74-106 mg/dL Calcium Level 10.0 8.7-10.4 mg/dL Magnesium Level 2.0 1.6-2.6 mg/dL Total Bilirubin 0.8 0.2-1.0 mg/dL Aspartate Amino Transferase (AST) 31 13-40 U/L Alanine Aminotransferase (ALT) 14 7-40 U/L Alkaline Phosphatase 62 46-116 U/L Total Protein 5.8 5.7-8.2 g/dL Albumin 3.7 3.2-4.8 g/dL Triglycerides Level 140 < 150 mg/dL Cholesterol Level 195 < 200 mg/dL LDL Cholesterol 129 H < 100 mg/dL HDL Cholesterol 48 40-59 mg/dL CHEST RADIOGRAPH FINDINGS: Lines and Tubes: None Lungs: Clear Pleura: No effusion. No pneumothorax. Cardiomediastinal contours: Unremarkable Bones: Unremarkable IMPRESSION: 1. Clear lungs. 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 Procedure Category Date Status Time Admit ADMIT 11/15/24 Transmitted 08:32 Code Status CODE 11/15/24 Transmitted 08:32 Sodium Chloride Lock PHA 11/15/24 Logged (Saline Lock Ns) 14:00 Acetaminophen Tablet PHA 11/15/24 Logged (Tylenol Tablet) 08:45 Hydrocodone-Acet PHA 11/15/24 Logged 5/325mg Tab ([place] 08:45 Ondansetron Hcl PHA 11/15/24 Logged (Zofran) 08:45 Docusate Sodium PHA 11/15/24 Logged Capsule (Colace 08:45 Fall Risk Precautions KATRINA 11/15/[address] 08:32 Complete Blood Count LAB 11/16/24 Verified 04:00 Comprehensive LAB 11/16/24 Verified Metabolic Panel 04:00 Npo (Nothing By DIET 11/15/24 Transmitted Mouth) Diet Breakfast Condition: Critical KATRINA 11/15/24 In Process 08:32 Nitroglycerin PHA 11/15/24 Logged Sublingual (Ntrostat 08:45 Morphine Sulfate PHA 11/15/24 Logged Injection 08:45 Stat Ekg For Chest KATRINA 11/15/24 In Process Pain 08:32 Notify Of Changes KATRINA 11/15/24 In Process From Base 08:32 Supervisor Dials For KATRINA 11/15/24 In Process 24 Hours 08:32 Emergency Dysrhythmia KATRINA 11/15/24 In Process Protocol 08:32 Rhythm Strips Once KATRINA 11/15/24 In Process Every Shift 08:32 Oxygen By Nasal RT 11/15/24 Transmitted Cannula 08:32 Platelet Monitoring KATRINA 11/15/24 In Process 08:33 Heparin Per KATRINA 11/15/24 In Process Standardized Proce 08:33 Discontinue All Im KATRINA 11/15/24 In Process Injections 08:33 PTPTT LAB 11/15/24 Logged 08:33 Complete Blood Count LAB 11/15/24 Logged 08:33 Heparin Sodium PHA 11/15/24 Logged (Porcine) 08:45 Heparin Drip/D5w PHA 11/15/24 Logged 100units/Ml 08:45 Date of Service: Nov 15, 2024 Billing Provider: CALDERON ESCOBAR Common Visit Codes: [id number] INP/OBS CARE (MOD) CALDERON ESCOBAR Nov 15, 2024 09:02
[2024-11-15 09:27] LABS: Basophils # (auto) 0.1 10 ^3/uL (0-0.2); Basophils % (auto) 1.1 % (0.0-2.0); Eosinophils # (auto) 0.2 10 ^3/uL (0-0.8); Eosinophils % (auto) 2.8 % (0.0-7.0); Hematocrit 41.7 % (36.0-46.0); Hemoglobin 14.1 g/dL (12.2-16.2); Lymphocytes # (auto) 1.5 10 ^3/uL (0.4-5.4); Lymphocytes % (auto) 22.2 % (10.0-50.0); Mean Corpuscular Hemoglobin 30.7 pg (28.0-32.0); Mean Corpuscular Hgb Conc. 33.7 g/dL (32.0-36.0); Mean Corpuscular Volume 90.9 fL (80.0-100.0); Monocytes # (auto) 0.8 10 ^3/uL (0-1.3); Monocytes % (auto) 12.4 % (0.0-12.0); Neutrophils # (auto) 4.1 10 ^3/uL (1.6-8.6); Neutrophils % (auto) 61.5 % (37.0-80.0); Nucleated Red Blood Cells % 0.3 %; Platelet Count (auto) 248 10^3/uL (140-450); Red Blood Cells 4.59 10^6/uL (4.0-5.20); Red Cell Distribution Width 13.5 % (11.8-14.3); White Blood Cell 6.6 10^3/uL (4.4-10.8)
[2024-11-15 09:44] LABS: INR 1.02 (0.9-1.15); Partial Thromboplastin Time 24.4 SEC (24.5-34.5); Prothrombin Time 10.8 sec (9.3-11.8)
--- NOTE | 2024-11-15 09:49 | DVHINCON2 ---
Date Seen: Nov 15, 2024 Referring Physician GORDON Madison Reason for Consultation STEMI History of Present Illness This is a pleasant 84-year-old female who presented to the emergency room via EMS with a chief complaint of cold sweats. Information retrieved from patient and daughter at bedside. Apparently the patient developed cold sweats associated with generalized weakness and nausea which prompted her to seek f urther medical attention. Denies chest pain, palpitations, or shortness of breath. She underwent a recent admission to this facility with discharged home on 11/12/2024. At that time, she presented as a code STEMI undergoing successful thrombus extraction from the LAD with no evidence of severe coronary artery disease with Dr. Wilson on 11/11/2024. Recommendations upon discharge was for continuation of Eliquis therapy but somehow she has failed to take it since her latest admission. She presents with troponin levels peaking in the 4,000s ng/L and multiple lead electrocardiograms revealing dynamic changes which have improved compared to those from previous admission. Other significant medical history includes congestive heart failure, unspecified atrial fibrillation on low-dose Eliquis therapy given history of lower GI bleed (hemorrhoids/polyps), status post transcatheter mitral valve replacement at [facility] on 2021, peripheral arterial disease status post RLE DOORKEEPER with a stent placement on Plavix therapy on 2022, hypertension, dyslipidemia, COPD, and who is in. Past Medical History Past medical history reviewed. No other significant than mentioned above. Past Surgical History Thrombus extraction of the LAD, 11/11/24 RLE DOORKEEPER, 2022 TMVR, 2021 Oophorectomy Cholecystectomy Family History: Patient reports no known family medical history. Family History Family history reviewed. Social History Denies the use of illicit drugs, alcohol, or tobacco use. Allergies: Coded Allergies: NO KNOWN ALLERGIES (Unverified , 09/27/22) Home Meds Active Scripts Famotidine (PEPCID TABLET) 20 Mg Tb, 1 TAB PO BID, #60 TAB 0 Refills Prov:PERCY HAYES MD 11/12/24 Potassium Chloride (Klor-Con 10) 10 Meq Tab, 10 MEQ PO DAILY for 30 Days, #30 TAB 0 Refills Prov:PERCY HAYES MD 11/12/24 Lisinopril (Lisinopril) 5 Mg Tab, 5 MG PO DAILY for 30 Days, #30 TAB 0 Refills Prov:PERCY HAYES MD 11/12/24 Furosemide (Furosemide) 20 Mg Tab, 20 MG PO DAILY for 30 Days, #30 TAB 0 Refills Prov:PERCY HAYES MD 11/12/24 Carvedilol (COREG) 3.125 Mg Tab, 3.125 MG PO BID for 30 Days, #60 TAB 0 Refills Prov:PERCY HAYES MD 11/12/24 Atorvastatin Calcium (ATORVASTATIN CALCIUM) 20 Mg Tab, 20 MG PO HS for 30 Days, #30 TAB 0 Refills Prov:PERCY HAYES MD 11/12/24 Apixaban Base (ELIQUIS) 5 Mg Tab, 5 MG PO BID for 30 Days, #60 TAB 0 Refills Prov:PERCY HAYES MD 11/12/24 Reported Medications Hydrocodone-Acetaminophen (Hydrocodone Bitartrate/AC 5-325 mg) 1 Tab Tab, 1 TAB PO Q12HR PRN for 15 Days, #30 11/10/24 Metoprolol Succinate (Metoprolol Succinate Er) 50 Mg Tab, 100 MG PO DAILY for 90 Days, #90 11/10/24 Clopidogrel Bisulfate (CLOPIDOGREL) 75 Mg Tab, 1 TAB PO DAILY for 30 Days, #30 11/10/24 Discontinued Reported Medications Furosemide (Furosemide) 40 Mg Tab, 1 PO DAILY 11/15/24 Lisinopril (Lisinopril) 20 Mg Tab, 1 TAB PO DAILY for 90 Days, #90 11/10/24 Furosemide (Furosemide) 40 Mg Tab, 1 TAB PO DAILY for 90 Days, #90 11/10/24 Home Meds Home medications reviewed. Current Medications Current Medications Medications (Trade) Dose Ordered Sig/Radha Route PRN Reason Start Time Stop Time Status Last Admin Sodium Chloride (Saline Lock Ns) 10 ml Q8HR IV 11/15/24 14:00 Acetaminophen (Tylenol Tablet) 325 mg Q4HP PRN PO MILD PAIN (1-3 PAIN SCALE) 11/15/24 08:45 Acetaminophen/ Hydrocodone Bitart ([place] 5/325MG Tab) 1 tab Q4HP PRN PO MODERATE PAIN (4-6 PAIN SCALE) 11/15/24 08:45 Ondansetron HCl (Zofran) 4 mg Q4HP PRN IV NAUSEA / VOMITING 11/15/24 08:45 Docusate Sodium (Colace Capsule) 100 mg BIDPRN PRN PO FOR CONSTIPATION 11/15/24 08:45 Nitroglycerin (Ntrostat Sublingual) 0.4 mg Q5MINP PRN SL FOR CHEST PAIN 11/15/24 08:45 Morphine Sulfate 2 mg Q30M PRN IV FOR CHEST PAIN 11/15/24 08:45 Heparin Sodium/ Dextrose 250 ml @ 10 mls/hr Q24H IV 11/15/24 08:45 Review of Systems Constitutional: Cold sweats, generalized weakness Ears, Nose, & Throat: No symptom reported Eyes: No symptom reported Neurological: No symptoms reported Pulmonary/Respiratory: No symptom reported Cardiovascular: No symptom reported Gastrointestinal: Nausea Genitourinary: No symptom reported Musculoskeletal: No symptom reported Skin: No symptom reported Psychiatric: No symptom reported Endocrine: No symptom reported Hemotologic/Lymphatic: No symptom reported Vital Signs Vital Signs Date Time Temp Pulse Resp B/P (MAP) Pulse Ox O2 Delivery O2 Flow Rate FiO2 11/15/24 08:46 97.8 86 15 105/50 (68) 100 97.8 11/15/24 03:15 Room Air* 0 21 Physical Exam General Appearance: Cooperative. Well developed. Well nourished. In no acute distress Head Exam: Normal inspection Neck Exam: Normal inspection. Non-tender. Normal alignment Pulmonary/Respiratory: Chest non-tender. Clear bilateral breath sounds Cardiovascular/Chest: Irregularly irregular rate and rhythm. Dynamic global ECG changes. No murmurs. No JVD. Peripheral Pulses: 2+ Radial (R). 2+ Radial (L). 2+ Pedal (R). 2+ Pedal (L) Abdominal Exam: Normal bowel sounds. Soft. Nontender. No hepatospenomegaly. N o masses Ankle Exam: Negative ankle edema Lower extremities: Positive lower extremity edema, non-pitting Neuro/Mental Status: A&O x4. Coherent Thoughts/Psych: Normal thought pattern. Appropriate mood and affect. Good judgement and insight Appearance: In no acute distress Skin Exam: Normal inspection. Normal color. Warm. Dry Labs/Diagnostic Data Labs Test 11/15/24 09:00 11/15/24 05:20 11/15/24 02:37 Range/Units White Blood Count 6.6 4.4-10.8 10^3/uL Red Blood Count 4.59 4.0-5.20 10^6/uL Hemoglobin 14.1 12.2-16.2 g/dL Hematocrit 41.7 36.0-46.0 % Mean Corpuscular Volume 90.9 80.0-100.0 fL Mean Corpuscular Hemoglobin 30.7 28.0-32.0 pg Mean Corpuscular Hemoglobin Concent 33.7 32.0-36.0 g/dL Red Cell Distribution Width 13.5 11.8-14.3 % Platelet Count 248 140-450 10^3/uL Mean Platelet Volume 8.8 6.9-10.8 fL Neutrophils (%) (Auto) 61.5 37.0-80.0 % Lymphocytes (%) (Auto) 22.2 10.0-50.0 % Monocytes (%) (Auto) 12.4 H 0.0-12.0 % Eosinophils (%) (Auto) 2.8 0.0-7.0 % Basophils (%) (Auto) 1.1 0.0-2.0 % Neutrophils # (Auto) 4.1 1.6-8.6 10 ^3/uL Lymphocytes # (Auto) 1.5 0.4-5.4 10 ^3/uL Monocytes # (Auto) 0.8 0-1.3 10 ^3/uL Eosinophils # (Auto) 0.2 0-0.8 10 ^3/uL Basophils # (Auto) 0.1 0-0.2 10 ^3/uL Nucleated Red Blood Cells 0.3 % Troponin I High Sensitivity 3779 *H </=34 ng/L Sodium Level 141 136-145 mmol/L Potassium Level 4.4 3.5-5.1 mmol/L Chloride Level 107 98-107 mmol/L Carbon Dioxide Level 25 20-31 mmol/L Anion Gap 9 5-15 Blood Urea Nitrogen 23 9-23 mg/dL Creatinine 1.13 H 0.550-1.02 mg/dL Glomerular Filtration Rate Calc 48 >90 mL/min BUN/Creatinine Ratio 20.4 H 10.0-20.0 Serum Glucose 116 H 74-106 mg/dL Calcium Level 10.0 8.7-10.4 mg/dL Magnesium Level 2.0 1.6-2.6 mg/dL Total Bilirubin 0.8 0.2-1.0 mg/dL Aspartate Amino Transferase (AST) 31 13-40 U/L Alanine Aminotransferase (ALT) 14 7-40 U/L Alkaline Phosphatase 62 46-116 U/L Total Protein 5.8 5.7-8.2 g/dL Albumin 3.7 3.2-4.8 g/dL Triglycerides Level 140 < 150 mg/dL Cholesterol Level 195 < 200 mg/dL LDL Cholesterol 129 H < 100 mg/dL HDL Cholesterol 48 40-59 mg/dL Assessment Non-ST elevation Myocardial Infarction with recent LAD coronary artery thrombectomy (11/11/2024) Chronic compensated HFrEF including LVEF 25-30%, NYHA Class III Unspecified atrial fibrillation, Stage III, on Eliquis therapy Peripheral arterial disease s/p RLE DOORKEEPER with stent Hx of TMVR Hypertension Dyslipidemia Lower GI bleed COPD Obesity Plan/Recommendation (Dr. Wilson) Case discussed in detail with Dr. Wilson (consultant electronics) and Dr. Olvera (interventional) who agreed on continuation of medical management including reestablishment of low-dose Eliquis therapy and hold off on Plavix therapy given recent history of lower GI bleed with outpatient invasive work-up pending at this time. Monitor H&H closely. Initiate GDMT for CHF as tolerated. Echocardi ogram revealed EF 25-30% with severe global hypokinesis. Dynamic of electrocardiogram changes have improved since last admission as well as down trending troponin levels which peaked >21,000 ng/L on last admission. If no improvement of LVEF with three months of GDMT for CHF, the patient may be a candidate for an ICD. Patient to follow-up with primary staffing operations manager in the outpatient setting within 1-2 weeks post discharge. Thank you for allowing us to participate in this patient's care. Please call if you have any questions or concerns. This medical document was created using an electronic medical record system with voice recognition software and computerized dictation system. Although this document has been carefully reviewed, there might still be some phonetic and typographical errors. Occasional wrong-word or ``sound-alike substitutions may have occurred due to the inherent limitations of voice recognition software. These areas are purely typographical due to imperfections of the software programs and do not reflect any compromise in the patient's medical care. Please read the chart carefully and recognize, using context, where these substitutions have occurred. Plan discussed with: Patient, Daughter NYHA Physical activity limitations: Class3(Marked) ordinary (activity causes symtoms) Date of Service: Nov 15, 2024 Billing Provider: ANNA JIMENES Cardiology Common Codes: [id number] INP/OBS CARE (High) ANNA JIMENES Nov 15, 2024 09:49
[2024-11-15] MEDS: CLOPIDOGREL BISULFATE 75 MG TAB PO SCH (10:31)
[2024-11-15] MEDS: APIXABAN 2.5 MG TAB PO SCH (10:31)
[2024-11-15 10:40] LABS: Urine Bacteria None Seen /hpf (None Seen)
[2024-11-15 11:05] LABS: Urine Blood Negative /uL (Negative); Urine Clarity Clear (Clear); Urine Color Yellow (Yellow); Urine Hyaline Cast FEW /lpf (0 - 2); Urine Mucus FEW (None Seen); Urine Protein, UAD TRACE (Negative); Urine Specific Gravity 1.026 (1.001-1.035); Urine Squamous Epithelial Cell None Seen /hpf (<5); Urine Urobilinogen Normal (Negative); Urine WBC 1 /HPF (0-5); Urine pH 5.5 (5.0-9.0)
--- NOTE | 2024-11-15 13:32 | DVHPN2 ---
Subjective Came for night sweats No chest pain Troponins trending down Changes from previous H/P or p: Changes Eyes: No Pain, No Vision change, No Conjunctivae inflammation, No Eyelid inflammation, No Other, No Redness ENT: No Ear pain, No Ear discharge, No Nose pain, No Nose discharge, No Nose congestion, No Mouth pain, No Mouth swelling, No Throat pain, No Throat swelling, No Other Cardiovascular: No Chest Pain, No Palpitations, No Orthopnea, No Paroxysmal Noc. Dyspnea, No Edema, No Lt Headedness, No Other Respiratory: No Cough, No Dry; Shortness of breath; No SOB with excertion, No Wheezing, No Hemoptysis, No Pleuritic Pain, No Sputum, No Other Gastrointestinal: Nausea; No Vomiting, No Abdominal Pain, No Diarrhea, No Constipation, No Melena, No Hematochezia, No Other Genitourinary: No Dysuria, No Frequency, No Incontinence, No Hematuria, No Retention, No Other Musculoskeletal: No other, No neck pain, No shoulder pain, No arm pain, No back pain, No hand pain, No leg pain, No foot pain Skin: No Rash, No Lesions, No Jaundice, No Bruising, No Other Objective Vitals Vital Signs Date Time Temp Pulse Resp B/P (MAP) Pulse Ox O2 Delivery O2 Flow Rate FiO2 11/15/24 12:00 89 15 107/56 (73) 94 11/15/24 08:46 97.8 97.8 11/15/24 08:00 Nasal Cannula* 2 28 General Appearance: Alert, Oriented X3, Cooperative, No acute distress Lungs: Clear to auscultation, Normal air movement Cardiovascular: Regular rate, Normal S1, Normal S2 Abdomen: Normal bowel sounds, Soft, No tenderness Extremities: No edema Medications Current Medications Medications Dose Ordered Sig/Radha Route Start Time Stop Time Status Last Admin Dose Admin Sodium Chloride 10 ml Q8HR IV 11/15/24 14:00 Acetaminophen 325 mg Q4HP PRN PO 11/15/24 08:45 Acetaminophen/ Hydrocodone Bitart 1 tab Q4HP PRN PO 11/15/24 08:45 Ondansetron HCl 4 mg Q4HP PRN IV 11/15/24 08:45 Docusate Sodium 100 mg BIDPRN PRN PO 11/15/24 08:45 Nitroglycerin 0.4 mg Q5MINP PRN SL 11/15/24 08:45 Morphine Sulfate 2 mg Q30M PRN IV 11/15/24 08:45 Apixaban 2.5 mg BID PO 11/15/24 10:00 11/15/24 10:31 2.5 MG Empaglifozin 10 mg DAILY PO 11/16/24 10:00 Lisinopril 2.5 mg DAILY PO 11/16/24 10:00 Metoprolol Tartrate 12.5 mg BID PO 11/15/24 22:00 Spironolactone 12.5 mg DAILY PO 11/16/24 10:00 Furosemide 20 mg DAILY PO 11/16/24 10:00 Laboratory Results Laboratory Tests 11/15/24 02:37 11/15/24 09:00 Chemistry Test 11/15/24 02:37 Albumin 3.7 g/dL (3.2-4.8) Calcium Level 10.0 mg/dL (8.7-10.4) Magnesium Level 2.0 mg/dL (1.6-2.6) Total Protein 5.8 g/dL (5.7-8.2) Coagulation Test 11/15/24 09:00 Prothrombin Time 10.8 sec (9.3-11.8) Prothrombin Time INR 1.02 (0.9-1.15) Activated Partial Thromboplast Time 24.4 SEC (24.5-34.5) L Lipid panel Test 11/15/24 02:37 Cholesterol Level 195 mg/dL (< 200) HDL Cholesterol 48 mg/dL (40-59) Triglycerides Level 140 mg/dL (< 150) LFT Test 11/15/24 02:37 Alanine Aminotransferase (ALT) 14 U/L (7-40) Alkaline Phosphatase 62 U/L (46-116) Aspartate Amino Transferase (AST) 31 U/L (13-40) Total Bilirubin 0.8 mg/dL (0.2-1.0) Urinalysis Test 11/15/24 10:20 Urine Color Yellow (Yellow) Urine Clarity Clear (Clear) Urine pH 5.5 (5.0-9.0) Urine Specific [place] 1.026 (1.001-1.035) Urine Protein Trace (Negative) H Urine Ketones Negative (Negative) Urine Blood Negative /uL (Negative) Urine Nitrite Negative (Negative) Urine Bilirubin Negative (Negative) Urine Urobilinogen Normal mg/dL (Negative) Urine Leukocyte Esterase Negative /uL (Negative) Urine RBC 1 /hpf (0 - 4) Urine Microscopic WBC 1 /HPF (0-5) Urine Squamous Epithelial Cells None seen /hpf (<5) Urine Bacteria None seen /hpf (None Seen) Urine Hyaline Casts Few /lpf (0 - 2) Urine Mucus Few (None Seen) Urine Glucose Normal mg/dL (Normal) Assessment/Plan Assessment/Plan CAD s/p Non-ST elevation Myocardial Infarction with recent LAD coronary artery thrombectomy (11/11/2024) Chronic compensated HFrEF including LVEF 25-30%, NYHA Class III Atrial fibrillation, Stage III, on Eliquis therapy Peripheral arterial disease s/p RLE SALES REPRESENTATIVE RAW FIBERS with stent Hx of TMVR Hypertension Dyslipidemia Lower GI bleed COPD Obesity PLAN: Lower Eliquis to 2.5 mg bid DC Plavix due to h/o GI bleed Jardiance Lasix Lisinopril Aldactone Metoprolol Plan discussed with: Patient My Orders Orders - CARLOS BARON MD Procedure Category Date Status Time Magnesium LAB 11/16/24 Verified 04:00 Troponin-I Hs LAB 11/16/24 Verified 04:00 Date of Service: Nov 15, 2024 Billing Provider: CARLOS BARON MD Common Visit Codes: NOT BILLABLE CARLOS BARON MD Nov 15, 2024 13:32
[2024-11-15] MEDS: SODIUM CHLOR 0.9% PF (SALINE LOCK) 10ML VIAL/SYR IV SCH (14:00)
[2024-11-15 15:51] VITALS: PULSE 89; RESP 18; O2SAT 93
[2024-11-15 17:00] VITALS: BP 108/76; PULSE 90; RESP 20; TEMP 98.2; O2SAT 98
[2024-11-15 20:00] VITALS: PULSE 85; PULSE 90; RESP 17; O2SAT 98
[2024-11-15 21:00] VITALS: BP 116/66; PULSE 90; RESP 17; TEMP 97.7; O2SAT 98
[2024-11-15] MEDS ORDERED: METOPROLOL TARTRATE 25 MG TAB PO SCH (22:00)
[2024-11-15] MEDS: ATORVASTATIN 20 MG TAB PO SCH (22:56)
[2024-11-15] MEDS: CARVEDILOL 3.125 MG TAB PO SCH (22:57)
[2024-11-16] VITALS (10 sets, daily range): BP systolic 102–118; BP diastolic 47–68; PULSE 74–96; RESP 16–20; TEMP 97.4–98.1; O2SAT 94–100
[2024-11-16] MEDS: HYDROcodone-ACET 5/325MG TAB PO PRN (05:40)
[2024-11-16 08:44] LABS: Basophils # (auto) 0.1 10 ^3/uL (0-0.2); Basophils % (auto) 0.8 % (0.0-2.0); Eosinophils # (auto) 0.2 10 ^3/uL (0-0.8); Eosinophils % (auto) 2.6 % (0.0-7.0); Hematocrit 41.5 % (36.0-46.0); Hemoglobin 14.2 g/dL (12.2-16.2); Lymphocytes % (auto) 12.3 % (10.0-50.0); Mean Corpuscular Hemoglobin 31.1 pg (28.0-32.0); Mean Corpuscular Hgb Conc. 34.2 g/dL (32.0-36.0); Mean Corpuscular Volume 90.9 fL (80.0-100.0); Monocytes # (auto) 0.9 10 ^3/uL (0-1.3); Monocytes % (auto) 10.2 % (0.0-12.0); Neutrophils # (auto) 6.2 10 ^3/uL (1.6-8.6); Neutrophils % (auto) 74.1 % (37.0-80.0); Nucleated Red Blood Cells % 0.1 %; Platelet Count (auto) 242 10^3/uL (140-450); Red Blood Cells 4.57 10^6/uL (4.0-5.20); Red Cell Distribution Width 13.4 % (11.8-14.3); White Blood Cell 8.4 10^3/uL (4.4-10.8)
[2024-11-16 09:38] LABS: Alanine Aminotransferase 14 U/L (7-40); Albumin 3.7 g/dL (3.2-4.8); Alkaline Phosphatase 59 U/L (46-116); Anion Gap 12 (5-15); Aspartate Aminotransferase 34 U/L (13-40); BUN/Creatinine Ratio 21.6 (10.0-20.0); Bilirubin, Total 0.7 mg/dL (0.2-1.0); Blood Urea Nitrogen 22 mg/dL (9-23); Calcium 9.9 mg/dL (8.7-10.4); Magnesium 2.1 mg/dL (1.6-2.6); Sodium 141 mmol/L (136-145); Total Protein 5.7 g/dL (5.7-8.2)
[2024-11-16 09:42] LABS: Carbon Dioxide 20 mmol/L (20-31); Chloride 109 mmol/L (98-107); Glucose 108 mg/dL (74-106)
--- NOTE | 2024-11-16 09:55 | DVHPN2 ---
Consult Progress Note Date Seen: Nov 16, 2024 Objective vital signs Vital Sign Date Time Temp Pulse Resp B/P (MAP) Pulse Ox O2 Delivery O2 Flow Rate FiO2 11/16/24 09:00 97.4 87 17 105/59 (74) 94 97.4 11/15/24 20:00 Nasal Cannula* 2 28 Total Intake and Output 11/15/24 11/15/24 11/16/24 15:00 23:00 07:00 Intake Total 400 ml 125 ml Output Total 400 ml 0 ml 450 ml Balance -400 ml 400 ml -325 ml medications Current Medications Medications Dose Ordered Sig/Radha Route Start Time Stop Time Status Last Admin Dose Admin Sodium Chloride 10 ml Q8HR IV 11/15/24 14:00 11/16/24 05:45 10 ML Acetaminophen 325 mg Q4HP PRN PO 11/15/24 08:45 Acetaminophen/ Hydrocodone Bitart 1 tab Q4HP PRN PO 11/15/24 08:45 11/16/24 05:40 1 TAB Ondansetron HCl 4 mg Q4HP PRN IV 11/15/24 08:45 Docusate Sodium 100 mg BIDPRN PRN PO 11/15/24 08:45 Nitroglycerin 0.4 mg Q5MINP PRN SL 11/15/24 08:45 Morphine Sulfate 2 mg Q30M PRN IV 11/15/24 08:45 Apixaban 2.5 mg BID PO 11/15/24 10:00 11/15/24 22:56 2.5 MG Lisinopril 2.5 mg DAILY PO 11/16/24 10:00 Metoprolol Tartrate 12.5 mg BID PO 11/15/24 22:00 Hold Spironolactone 12.5 mg DAILY PO 11/16/24 10:00 Atorvastatin Calcium 20 mg HS PO 11/15/24 22:00 11/15/24 22:56 20 MG Carvedilol 3.125 mg BID PO 11/15/24 22:00 11/15/24 22:57 3.125 MG Clopidogrel Bisulfate 75 mg DAILY PO 11/16/24 10:00 Furosemide 20 mg DAILY PO 11/16/24 10:00 Examination: LUNGS:Normal, CVS:Normal (A-fib controlled rate), NEURO:Normal laboratory and microbiology Laboratory Tests 11/16/24 08:08 Test 11/16/24 08:08 Range/Units Serum Glucose Pending Problem List/Assessment/Plan Problem List/Assessment/Plan Non-ST elevation Myocardial Infarction with recent LAD coronary artery thrombectomy (11/11/2024) Chronic compensated HFrEF including LVEF 25-30%, NYHA Class III Unspecified atrial fibrillation, Stage III, on Eliquis therapy Peripheral arterial disease s/p RLE SCRAP PICKER with stent Hx of TMVR Hypertension Dyslipidemia Lower GI bleed COPD Obesity Plan/Recommendation (Dr. Wilson) Case discussed in detail with Dr. Wilson (gis consultant) and Dr. Olvera (interventional) who agreed on continuation of medical management including reestablishment of low-dose Eliquis therapy and holding off on Plavix therapy given recent history of lower GI bleed with outpatient invasive work-up pending at this time. Monitor H&H closely. Continue GDMT for CHF as tolerated. Echocardiogram revealed EF 25-30% with severe global hypokinesis. Dynamic changes on 12-lead electrocardiograms have improved since last admission as well as down trending troponin levels which peaked >21,000 ng/L on last admission. If no improvement of LVEF with three months of GDMT for CHF, the patient may be a candidate for an ICD. Patient to follow-up with primary boring mill set up operator vertical in the outpatient setting within 1-2 weeks post discharge. There is no further cardiac work-up indicated at this time. Kindly call if in need to re-consult. Thank you for allowing us to participate in this patient's care. This medical document was created using an electronic medical record system with voice recognition software and computerized dictation system. Although this document has been carefully reviewed, there might still be some phonetic and typographical errors. Occasional wrong-word or ``sound-alike substitutions may have occurred due to the inherent limitations of voice recognition software. These areas are purely typographical due to imperfections of the software programs and do not reflect any compromise in the patient's medical care. Please read the chart carefully and recognize, using context, where these substitutions have occurred. Plan discussed with: Patient, Other Date of Service: Nov 16, 2024 Billing Provider: ANNA JIMENES Cardiology Common Codes: [id number] INP/OBS CARE(Mod) ANNA JIMENES Nov 16, 2024 09:55
[2024-11-16 09:56] LABS: Potassium 5.6 mmol/L (3.5-5.1)
[2024-11-16] MEDS ORDERED: CLOPIDOGREL BISULFATE 75 MG TAB PO SCH (10:00)
[2024-11-16] MEDS ORDERED: EMPAGLIFLOZIN 10 MG TAB PO SCH (10:00)
[2024-11-16] MEDS ORDERED: FUROSEMIDE 20 MG TAB PO SCH (10:00)
[2024-11-16] MEDS ORDERED: SPIRONOLACTONE 25 MG TAB PO SCH (10:00)
[2024-11-16] MEDS: SODIUM ZIRCONIUM CYCL 10 GM PAK PO ONE ×2 (11:00→11:10)
[2024-11-16] MEDS: LISINOPRIL 5 MG TAB PO SCH (11:06)
[2024-11-16] MEDS: FUROSEMIDE 20 MG TAB PO SCH (11:06)
[2024-11-16] MEDS: METOPROLOL TARTRATE 25 MG TAB PO SCH (11:07)
[2024-11-16] MEDS: EMPAGLIFLOZIN 10 MG TAB PO SCH (11:12)
[2024-11-16] MEDS ORDERED: EMPA1TAB PO (11:17)
[2024-11-16] MEDS ORDERED: APIX2.5T PO (11:19)
--- NOTE | 2024-11-16 11:19 | DVHDS2 ---
Discharge Summary Date of Admission Nov 15, 2024 at 08:32 Date of Discharge: Nov 16, 2024 Labs/Diagnostic Data: Laboratory Results Test 11/16/24 08:08 11/15/24 10:20 11/15/24 09:00 11/15/24 02:37 White Blood Count 8.4 10^3/uL (4.4-10.8) Red Blood Count 4.57 10^6/uL (4.0-5.20) Hemoglobin 14.2 g/dL (12.2-16.2) Hematocrit 41.5 % (36.0-46.0) Mean Corpuscular Volume 90.9 fL (80.0-100.0) Mean Corpuscular Hemoglobin 31.1 pg (28.0-32.0) Mean Corpuscular Hemoglobin Concent 34.2 g/dL (32.0-36.0) Red Cell Distribution Width 13.4 % (11.8-14.3) Platelet Count 242 10^3/uL (140-450) Mean Platelet Volume 8.8 fL (6.9-10.8) Neutrophils (%) (Auto) 74.1 % (37.0-80.0) Lymphocytes (%) (Auto) 12.3 % (10.0-50.0) Monocytes (%) (Auto) 10.2 % (0.0-12.0) Eosinophils (%) (Auto) 2.6 % (0.0-7.0) Basophils (%) (Auto) 0.8 % (0.0-2.0) Neutrophils # (Auto) 6.2 10 ^3/uL (1.6-8.6) Lymphocytes # (Auto) 1.0 10 ^3/uL (0.4-5.4) Monocytes # (Auto) 0.9 10 ^3/uL (0-1.3) Eosinophils # (Auto) 0.2 10 ^3/uL (0-0.8) Basophils # (Auto) 0.1 10 ^3/uL (0-0.2) Nucleated Red Blood Cells 0.1 % Sodium Level 141 mmol/L (136-145) Potassium Level 5.6 mmol/L (3.5-5.1) Chloride Level 109 mmol/L (98-107) Carbon Dioxide Level 20 mmol/L (20-31) Anion Gap 12 (5-15) Blood Urea Nitrogen 22 mg/dL (9-23) Creatinine 1.02 mg/dL (0.550-1.02) Glomerular Filtration Rate Calc 54 mL/min (>90) BUN/Creatinine Ratio 21.6 (10.0-20.0) Serum Glucose 108 mg/dL (74-106) Calcium Level 9.9 mg/dL (8.7-10.4) Magnesium Level 2.1 mg/dL (1.6-2.6) Total Bilirubin 0.7 mg/dL (0.2-1.0) Aspartate Amino Transferase (AST) 34 U/L (13-40) Alanine Aminotransferase (ALT) 14 U/L (7-40) Alkaline Phosphatase 59 U/L (46-116) Troponin I High Sensitivity 1674 ng/L (</=34) Total Protein 5.7 g/dL (5.7-8.2) Albumin 3.7 g/dL (3.2-4.8) Urine Color Yellow (Yellow) Urine Clarity Clear (Clear) Urine pH 5.5 (5.0-9.0) Urine Specific [place] 1.026 (1.001-1.035) Urine Protein Trace (Negative) Urine Ketones Negative (Negative) Urine Blood Negative /uL (Negative) Urine Nitrite Negative (Negative) Urine Bilirubin Negative (Negative) Urine Urobilinogen Normal mg/dL (Negative) Urine Leukocyte Esterase Negative /uL (Negative) Urine RBC 1 /hpf (0 - 4) Urine Microscopic WBC 1 /HPF (0-5) Urine Squamous Epithelial Cells None seen /hpf (<5) Urine Bacteria None seen /hpf (None Seen) Urine Hyaline Casts Few /lpf (0 - 2) Urine Mucus Few (None Seen) Urine Glucose Normal mg/dL (Normal) Prothrombin Time 10.8 sec (9.3-11.8) Prothrombin Time INR 1.02 (0.9-1.15) Activated Partial Thromboplast Time 24.4 SEC (24.5-34.5) Triglycerides Level 140 mg/dL (< 150) Cholesterol Level 195 mg/dL (< 200) LDL Cholesterol 129 mg/dL (< 100) HDL Cholesterol 48 mg/dL (40-59) Other Laboratory Tests 11/16/24 08:08 Brief Hx & Hospital Course: Final diagnoses: CAD s/p Non-ST elevation Myocardial Infarction with recent LAD coronary artery thrombectomy (11/11/2024) Chronic compensated HFrEF including LVEF 25-30%, NYHA Class III Atrial fibrillation, Stage III, on Eliquis therapy Peripheral arterial disease s/p RLE YARD SWITCHER with stent Hx of TMVR Hypertension Dyslipidemia Lower GI bleed COPD Obesity 84 year old was admitted and her workup was negative Recommend to decrease the dose of Eliquis to 2.5 mg twice a day Discontinue Plavix Add Jardiance Resume other home medications Aldactone was recommended by Cardiology also however her potassium is elevated today and therefore we will discontinue that for now Give breathing treatment with albuterol and Lokelma to correct her potassium and then the patient can be discharged home Discharged home and follow up with the primary care physician as soon as possible Condition at Discharge: Stable Final Diagnosis/Problems List CAD s/p Non-ST elevation Myocardial Infarction with recent LAD coronary artery thrombectomy (11/11/2024) Chronic compensated HFrEF including LVEF 25-30%, NYHA Class III Atrial fibrillation, Stage III, on Eliquis therapy Peripheral arterial disease s/p RLE YARD SWITCHER with stent Hx of TMVR Hypertension Dyslipidemia Lower GI bleed COPD Obesity Discharge Disposition: Home SNF Discharge Will this Physician continue t: No Discharge Instruct/Medications Diet: Cardiac 2g Na,low cholest Activity: No Restrictions, As Tolerated Follow Up/Referral: PCP [facility] Medications: Same home meds with the following changes: Decrease Eliquis to 2.5 mg bid DC Plavix Discharge Statement: "Patient was advised to return to the ER or call 911 if any headaches, dizziness, shortness of breath, chest pain, abdominal pain, bleeding, fevers, or worsening of medical condition. Patient was counseled about treatment plan, medications, possible side effects, patientverbalized understanding. All questions were answered to the best of my ability. This discharge took greater then 30 minutes in planning, reviewing documentation, counseling the patient, and discussing with other team members." ASSESSMENT ASSESSMENT Assessment Date of Service: Nov 16, 2024 Billing Provider: CARLOS BARON MD Common Visit Codes: NOT BILLABLE CARLOS BARON MD Nov 16, 2024 11:19
[2024-11-16] MEDS: IPRATROPIUM BROM 0.5 MG/2.5ML INH SOL NEB PRN (12:39)
[2024-11-16] MEDS: ALBUTEROL SULF 2.5 MG/0.5ML(0.5%) NEB SOLN NEB PRN (12:39)
[2024-11-16 14:32] LABS: Urine Bacteria None Seen /hpf (None Seen)
[2024-11-16 14:40] LABS: Urine Blood 3+ /uL (Negative); Urine Clarity Clear (Clear); Urine Color Colorless (Yellow); Urine Hyaline Cast FEW /lpf (0 - 2); Urine Protein, UAD Negative (Negative); Urine Specific Gravity 1.007 (1.001-1.035); Urine Squamous Epithelial Cell FEW /hpf (<5); Urine Urobilinogen Normal (Negative); Urine WBC 12 /HPF (0-5); Urine pH 6.5 (5.0-9.0)
== END 2024-11-16 19:12 | disposition home or self-care (01) | DRG 281 ==
LOC: EDBD 02:26 → ER 02:26 → MERGE 08:32 → TELE 08:32 → TELE-WESTW 13:24
PROVIDERS: ADMIT Nurse Practitioner Family; ATTEND Internal Medicine Geriatric Medicine
PROC: 05HB33Z Insertion of Infusion Device into Right Basilic Vein, Percutaneous Approach (ICD-10-PCS; principal; 2024-11-15)
PROC: B54MZZA Ultrasonography of Right Upper Extremity Veins, Guidance (ICD-10-PCS; 2024-11-15)
DX: I21.4 Non-ST elevation (NSTEMI) myocardial infarction (principal); I50.22 Chronic systolic (congestive) heart failure; K92.2 Gastrointestinal hemorrhage, unspecified; E78.5 Hyperlipidemia, unspecified; I48.91 Unspecified atrial fibrillation; I73.9 Peripheral vascular disease, unspecified; J44.9 Chronic obstructive pulmonary disease, unspecified; E66.9 Obesity, unspecified; I11.0 Hypertensive heart disease with heart failure; I25.10 Atherosclerotic heart disease of native coronary artery without angina pectoris; Z68.34 Body mass index [BMI] 34.0-34.9, adult; Z79.01 Long term (current) use of anticoagulants; Z90.710 Acquired absence of both cervix and uterus; Z95.2 Presence of prosthetic heart valve; I25.2 Old myocardial infarction; Z90.49 Acquired absence of other specified parts of digestive tract
CPT/HCPCS: 36415; 71045; 80053; 80061; 81001; 83735; 84484; 85025; 85610; 85730; 87086; 87088; 87186; 93005; 96360; 99291; G0378

== ENCOUNTER 2025-07-30 10:54 | Inpatient (IN) | payer OTHER ==
[~2025-07-30] VITALS: Ht 154.9 cm; Wt 81.5 kg
[~2025-07-30 10:54] MED LIST changes: +APIX2.5T PO; -CLOP75TA70 PO; +EMPA1TAB PO; -METO-289 PO; -POTA-211 PO
[2025-07-30 12:00] VITALS: PULSE 130; RESP 22; O2SAT 100
[2025-07-30] MEDS: AMIODARONE BOLUS KIT 100 ML IV ONE (12:35)
--- NOTE | 2025-07-30 12:45 | DVH ---
CHEST RADIOGRAPH Indication: sob Technique: XY CHEST PORTABLE COMPARISON: None FINDINGS: The cardiac silhouette is enlarged. The lungs demonstrate bilateral patchy airspace opacities. The pu lmonary vasculature is prominent. Small bilateral pleural effusions. There is no pneumothorax. Aortic atherosclerotic disease. IMPRESSION: Cardiomegaly with pulmonary vascular congestion and bilateral patchy airspace opacities. Small bilateral pleural effusions
[2025-07-30] MEDS: AMIODARONE 360mg/200mL PREMIX 200 ML IV ONE (12:58)
[2025-07-30 13:06] LABS: Hematocrit 29.0 % (36.0-46.0); Hemoglobin 9.5 g/dL (12.2-16.2); Mean Corpuscular Hemoglobin 31.2 pg (28.0-32.0); Mean Corpuscular Volume 95.1 fL (80.0-100.0); Nucleated Red Blood Cells % 0.2 %
[2025-07-30 13:08] LABS: Potassium 4.7 mmol/L (3.5-5.1); Sodium 142 mmol/L (136-145)
[2025-07-30 13:09] LABS: Anion Gap 8 (5-15); Calcium 8.8 mg/dL (8.7-10.4); Carbon Dioxide 26 mmol/L (20-31)
[2025-07-30 13:12] LABS: Chloride 108 mmol/L (98-107)
[2025-07-30 13:14] LABS: BUN/Creatinine Ratio 15.2 (10.0-20.0); Blood Urea Nitrogen 16 mg/dL (9-23)
--- NOTE | 2025-07-30 13:15 | ED.PDOC ---
History of Present Illness HPI Comments 84 y/o obese F is BIBA for 2x day history of generalized weakness. Denies any chest pain, shortness of breath, urinary problems, vision or speech changes, numbness, tingling, or further acute symptoms. Significant history of AFib, CHF, COPD, and HTN. Additional notable history of recent removal from hospice following placement during previous [facility] admission. Chief Complaint: General Weakness Time Seen by MD: 11:50 Primary Care Provider: Aaron Reviewed Notes: Nurses Notes, Last Code Striper Notes, Medications, Allergies Allergies: Coded Allergies: Caffeine (Verified Allergy, Severe, DIARRHEA, HEADACHES, STOMACH PAINS, 05/01/12) Uncoded Allergies: CODEINE (Allergy, Unknown, 07/30/25) Home Meds Active Scripts Apixaban Base (ELIQUIS) 2.5 Mg Tab, 2.5 MG PO BID for 30 Days, #60 TAB 5 Refills Prov:CARLOS BARON MD 11/16/24 Empagliflozin (Jardiance) 10 Mg Tab, 10 MG PO DAILY for 30 Days, #30 TAB 5 Refills Prov:CARLOS BARON MD 11/16/24 Famotidine (PEPCID TABLET) 20 Mg Tb, 1 TAB PO BID, #60 TAB 0 Refills Prov:PERCY HAYES MD 11/12/24 Lisinopril (Lisinopril) 5 Mg Tab, 5 MG PO DAILY for 30 Days, #30 TAB 0 Refills Prov:PERCY HAYES MD 11/12/24 Furosemide (Furosemide) 20 Mg Tab, 20 MG PO DAILY for 30 Days, #30 TAB 0 Refills Prov:PERCY HAYES MD 11/12/24 Carvedilol (COREG) 3.125 Mg Tab, 3.125 MG PO BID for 30 Days, #60 TAB 0 Refills Prov:PERCY HAYES MD 11/12/24 Atorvastatin Calcium (ATORVASTATIN CALCIUM) 20 Mg Tab, 20 MG PO HS for 30 Days, #30 TAB 0 Refills Prov:PERCY HAYES MD 11/12/24 Azithromycin (Zithromax Z-Luis) 250 Mg Tab, 250 MG PO DAILY for 4 Days, #4 TAB Prov:CARLOS BARON MD 01/21/24 Methylprednisolone (Medrol Dosepak) 4 Mg Luis, 4 MG PO UD, #21 TAB UAD Prov:CARLOS BARON MD 01/21/24 Albuterol Sulfate (Albuterol Sulfate Hfa) 108 Mcg/Act Aer, 216 MCG IN QIDP for 30 Days, #18 GRAMS Prov:CARLOS BARON MD 01/21/24 Potassium Chloride (Potassium Chloride ER) 10 Meq Tab, 1 TAB PO DAILY, #30 TAB Prov:JOJO ESPINAL MD 07/30/23 Ipratropium-Albuterol (Ipratropium [place]/Albut) 1 Delmis Delmis, 1 DELMIS IN BID, #30 ML Prov:JOJO ESPINAL MD 07/30/23 Furosemide (Furosemide) 40 Mg Tab, 1 TAB PO QAM, #30 TAB Prov:JOJO ESPINAL MD 07/30/23 Reported Medications Hydrocodone-Acetaminophen (Hydrocodone Bitartrate/AC 5-325 mg) 1 Tab Tab, 1 TAB PO Q12HR PRN for 15 Days, #30 11/10/24 Guaifenesin (Chest Congestion Relief) 100 Mg/5 Ml Syp, PO 01/16/24 Atorvastatin Calcium (ATORVASTATIN CALCIUM) 40 Mg Tab, 1 TAB PO DAILY 01/16/24 Prednisone (Prednisone) 20 Mg Tab, 1 TAB PO BID 01/16/24 Tiotropium [place] Monohydrate (Spiriva Respimat) 2.5 Mcg/Act Spr, 2 PUFF INH DAILY 01/15/24 Atorvastatin Calcium (Lipitor) 40 Mg Tab, 1 TAB PO DAILY 01/15/24 Albuterol Sulfate (Albuterol Sulfate Hfa) 108 Mcg/Act Aer, 2 PUFF INH Q4HR PRN 01/15/24 Benzonatate (Benzonatate) 100 Mg Cap, 1 CAP PO TID PRN for FOR COUGH, #30 CAP 01/15/24 Sumatriptan Succinate (Imitrex) 50 Mg Tab, 50 MG PO, TAB 07/29/23 Loperamide Hcl (Loperamide Hcl) 2 Mg Cap, 2 MG PO, MG 07/29/23 Pantoprazole Sodium Sesquihydr (Pantoprazole Sodium) 40 Mg Tab, 1 TAB PO DAILY 07/28/23 Apixaban Base (ELIQUIS) 5 Mg Tab, 1 TAB PO BID 07/28/23 Metoprolol Succinate (Metoprolol Succinate Er) 100 Mg Tab, 1 TAB PO DAILY 07/28/23 Lisinopril (Lisinopril) 20 Mg Tab, 1 TAB PO DAILY 07/28/23 Hydrocodone-Acetaminophen (Hydrocodone Bitartrate/AC 5-325 mg) 1 Tab Tab, 1 TAB PO Q12HR PRN 07/28/23 Information Source: Patient, Emergency Med Personnel Mode of Arrival: Ambulatory Severity: Moderate Timing: Days Duration: Since onset Prehospital treatment: 12 Lead EKG, Accucheck, Enterprise Manager Past Medical History PAST MEDICAL HISTORY: AFIB (Stage III, on Eliquis therapy), CHF, COPD (on home oxygen at 2lpm ), High Lipids, HTN, [place] (NSTEMI), 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 ) Past Medical History (Other): History of lower GI bleed Surgical History: Cholecystectomy, Hysterectomy Surgical History (Other): LAD coronary artery thrombectomy (11/11/2024) Hx of TMVR LEAD 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 History: No Pertinent LEAD PYTHON DEVELOPER History, Unknown Family History Family History: Reviewed,noncontributory to illness, Unknown Social History Smoker: Non-Smoker Alcohol: Denies ETOH Use Drugs: Denies Drug Use Lives In: Home All Other Systems: Reviewed and Negative (Comprehensive review of systems are negative unless stated in HPI) Physical Exam General Appearance: Moderate Distress HEENT: Normal ENT Inspection, Pharynx Normal, TMs Normal Neck: Full Range of Motion, Non-Tender, Normal, Normal Inspection Respiratory: Chest Non-Tender, Lungs Clear, No Accessory Muscle Use, No Respiratory Distress, Normal Breath Sounds Cardiovascular: Irregular Breast Exam: Deferred Gastrointestinal: No Organomegaly, Non Tender, No Pulsatile Mass, Normal Bowel Sounds, Soft Genitalia: Deferred Pelvic: Deferred Rectal: Deferred Extremities: No calf tenderness, No pedal edema Musculoskeletal : Apperance: Normal Neurologic: Alert, No Motor Deficits, No Sensory Deficits Cerebellar Function: NOT DONE Reflexes: NOT DONE Skin: Normal Color Peripheral Pulses: 3+ Radial (R), 3+ Radial (L) Lymphatic: No Adenopathy Was a procedure done? Was a procedure done?: No EKG EKG : Pulse Rate (adult): 130 Armbrust: Normal Cardiac Rhythm: Afib Block: LBBB Hypertrophy: None ST: Normal Differential Dx Considerations may include: CVA - hemorrhagic vs ischemic, TIA, aneurysm, viral syndrome, electrolyte imbalance, dehydration, malnutrition, URI, among others X-Ray, Labs, Meds, VS Vital Signs Date Time Temp Pulse Resp B/P (MAP) Pulse Ox O2 Delivery O2 Flow Rate FiO2 07/30/25 11:15 98.1 130 20 124/82 97 98.1 07/30/25 11:05 130 Lab Test 07/30/25 12:24 Range/Units White Blood Count 8.7 4.4-10.8 10^3/uL Red Blood Count 3.05 L 4.0-5.20 10^6/uL Hemoglobin 9.5 L 12.2-16.2 g/dL Hematocrit 29.0 L 36.0-46.0 % Mean Corpuscular Volume 95.1 80.0-100.0 fL Mean Corpuscular Hemoglobin 31.2 28.0-32.0 pg Mean Corpuscular Hemoglobin Concent 32.8 32.0-36.0 g/dL Red Cell Distribution Width 18.3 H 11.8-14.3 % Platelet Count 323 140-450 10^3/uL Mean Platelet Volume 7.9 6.9-10.8 fL Neutrophils (%) (Auto) 74.2 37.0-80.0 % Lymphocytes (%) (Auto) 12.4 10.0-50.0 % Monocytes (%) (Auto) 12.7 H 0.0-12.0 % Eosinophils (%) (Auto) 0.2 0.0-7.0 % Basophils (%) (Auto) 0.5 0.0-2.0 % Neutrophils # (Auto) 6.4 1.6-8.6 10 ^3/uL Lymphocytes # (Auto) 1.1 0.4-5.4 10 ^3/uL Monocytes # (Auto) 1.1 0-1.3 10 ^3/uL Eosinophils # (Auto) 0 0-0.8 10 ^3/uL Basophils # (Auto) 0 0-0.2 10 ^3/uL Nucleated Red Blood Cells 0.2 % Sodium Level 142 136-145 mmol/L Potassium Level 4.7 3.5-5.1 mmol/L Chloride Level 108 H 98-107 mmol/L Carbon Dioxide Level 26 20-31 mmol/L Anion Gap 8 5-15 Blood Urea Nitrogen Pending Creatinine Pending Glomerular Filtration Rate Calc Pending BUN/Creatinine Ratio Pending Serum Glucose Pending Calcium Level 8.8 8.7-10.4 mg/dL Troponin I High Sensitivity Pending Current Medications Medications (Trade) Dose Ordered Sig/Radha Route Start Time Stop Time Status Last Admin Amiodarone HCl 100 ml @ 600 mls/hr ONCE ONCE IV 07/30/25 12:00 07/30/25 12:09 DC 07/30/25 12:35 Amiodarone HCL/ Dextrose 200 ml @ 33.33 mls/ hr ONCE ONCE IV 07/30/25 12:15 07/30/25 18:15 07/30/25 12:58 [place] [address] Ph: [phone] DIAGNOSTIC IMAGING Diagnostic Imaging Report : [id number] Signed PATIENT: JIMBO JHAVERI ACCT: [id number] UNIT: [id number] : 1940 LOC: ER ROOM / BED: / AGE / SEX: 84 / F ADM STATUS: REG ER SERVICE 1158 ORDERING PHYSICIAN: DIVINA ELLISON MD PROCEDURE(s): CXRP - CHEST PORTABLE REASON: sob ORDER NUMBER(s): [id number], ACCESSION NUMBER(s): [id number] CHEST RADIOGRAPH Indication: sob Technique: XY CHEST PORTABLE COMPARISON: None FINDINGS: The cardiac silhouette is enlarged. The lungs demonstrate bilateral patchy airspace opacities. The pulmonary vasculature is prominent. Small bilateral pleural effusions. There is no pneumothorax. Aortic atherosclerotic disease. IMPRESSION: Cardiomegaly with pulmonary vascular congestion and bilateral patchy airspace opacities. Small bilateral pleural effusions ATED BY: YARELI SEAMAN MD DICTATED DATE/TIME: 07/30/251246 SIGNED BY: YARELI SEAMAN MD SIGNED DATE/TIME: 07/30/251246 CC: Patient alert pain Came in because of shortness a breath. EKG reviewed does show atrial fibrillation. Stable. She is on oxygen. Continued oxygen. Chest x-ray reviewed CHF. Was given Lasix. Was started on amiodarone. Explained to the patient. Continue monitoring. Time of 1ST Reevaluation: 12:20 Reevaluation 1ST: Unchanged Patient Education/Counseling: Diagnosis, Treatment Family Education/Counseling: No Family Present SEPSIS Sepsis Screen Date sepsis recognized/suspect: Jul 30, 2025 Time Sepsis recognized/suspect: 1118 Recent Procedure: No On Antibiotic Therapy: No Respiratory Rate >20: No Heart Rate >90: Yes Temp<36 C (96.8 F) or >38.3 C: No SBP <90 or MAP <65 mmHG: No New Acute Mental Status Change: No Is the patient on CPAP, BIPAP,: No Physician Orders Troponin-I Hs (07/30/25 11:58) Chest Portable (07/30/25 11:58) Urinalysis (07/30/25 11:58) Basic Metabolic Panel (07/30/25 11:58) Amiodarone 360mg/200ml Premix (Nexterone (07/30/25 12:15) Electrocardigram (07/30/25 12:01) Insert Garland Catheter QSHIFT (07/30/25 12:58) Vital Signs Date Time Temp Pulse Resp B/P (MAP) Pulse Ox O2 Delivery O2 Flow Rate FiO2 07/30/25 11:15 98.1 130 20 124/82 97 98.1 07/30/25 11:05 130 Laboratory Tests Test 07/30/25 12:24 White Blood Count 8.7 10^3/uL (4.4-10.8) Medications Medications Dose Ordered Sig/Radha Route Start Time Stop Time Status Last Admin Dose Admin Amiodarone HCl 100 ml @ 600 mls/hr ONCE ONCE IV 07/30/25 12:00 07/30/25 12:09 DC 07/30/25 12:35 Amiodarone HCL/ Dextrose 200 ml @ 33.33 mls/ hr ONCE ONCE IV 07/30/25 12:15 07/30/25 18:15 07/30/25 12:58 Departure 1 Departure Time of Disposition: 13:17 Impression: Primary Impression: CHF exacerbation Qualified Codes: I50.43 - Acute on chronic combined systolic (congestive) and diastolic (congestive) heart failure Additional Impressions: COPD exacerbation Atrial fibrillation Qualified Codes: I48.0 - Paroxysmal atrial fibrillation Disposition: ADMITTED INPATIENT Admit to: Med Surg Condition: Guarded Critical Care Note Critical Care Time?: Yes (90 min-critical care time only) Stability Stability form required: No Heart Score Heart Score: Heart Score Response (Comments) Value History Slightly Suspicious 0 EKG Normal 0 Age >65 2 Risk Factors >3 or Hx ASHD 2 Troponin Normal limit 0 Total 4 I personally scribed for DIVINA ELLISON MD ([email or web address]) on 07/30/25 at 13:15. Electronically submitted by Hemanth Jin [email or web address]). DIVINA ELLISON MD Jul 30, 2025 13:15
[2025-07-30 13:18] LABS: Glucose 110 mg/dL (74-106)
--- NOTE | 2025-07-30 13:45 | ECG ---
[facility] Test Date: 2025-07-30 Test Time: 11:02:01 Pat Name: JIMBO JHAVERI Department: [facility] ED Room: [address] [place] [address] Gender: F Reimbursement Director: KIMMY : 1940 Requested By: DIVINA ELLISON Order Number: [id number] Reading MD: Rashawn Wilson Measurements Intervals [place] Rate: 130 P: 0 CA: 0 QRS: -54 QRSD: 148 T: 118 QT: 354 QTc: 521 Interpretive Statements Afib/flut and V-paced complexes No further rhythm analysis attempted due to paced rhythm Left bundle branch block Electronically Signed On 07-30-2025 18:51:54 PDT by Rashawn Wilson Please click the below link to view image of tracing.
[2025-07-30] MEDS: FUROSEMIDE 40 MG/4 ML VIAL IV ONE (13:50)
[2025-07-30 14:12] LABS: Urine Protein, UAD TRACE (Negative)
[2025-07-30 15:35] VITALS: PULSE 123; RESP 35; O2SAT 99
[2025-07-30] MEDS ORDERED: MORPHINE SULFATE INJ 2 MG/ml SYRG IV PRN (15:45)
[2025-07-30] MEDS ORDERED: NITROGLYCERIN 0.4 MG SL TAB SL PRN (15:45)
--- NOTE | 2025-07-30 16:13 | DVHHP2 ---
History of Present Illness Reason for Visit: Generalized weakness History of Present Illness Delmi Cornejo is an 84-year-old female with past medical history of COPD, atrial fibrillation, CHF, hypertension, hyperlipidemia, and chronic renal disease, who came to the hospital for generalized weakness. Patient states she has not been feeling well for a few days. She has been nauseated and not sleeping well. She came to the hospital today due to shortness of breath and generalized weakness. She states her symptoms worsened today promoting her to come in. Patient was previously on hospice. She wants to revoke it and states she did not fully understand what it meant to sign up for hospice. She states she would still like to be a full code and receive full treatment. Since being on hospice her home medications have been stopped. Patient was found to be in atrial fibrillation with RVR on arrival to the ER. Cardiovascular: AFIB, CHF, HTN, hyperipidemia Pulmonary: COPD Past Surgical History: Cholecystectomy, Hysterectomy Smoke: No ALCOHOL: rare Drugs: None Lives: with Family Domestic Violence: Neg Review of Systems Constitutional: No: Fever, Chills, Sweats, Weakness, Malaise, Other Eyes: No: Pain, Vision change, Conjunctivae inflammation, Eyelid inflammation, Other, Redness ENT: No: Ear pain, Ear discharge, Nose pain, Nose discharge, Nose congestion, Mouth pain, Mouth swelling, Throat pain, Throat swelling, Other Respiratory: No: Cough, Dry, Shortness of breath, SOB with excertion, Wheezing, Hemoptysis, Pleuritic Pain, Sputum, Wheezing, Other Cardiovascular: No: Chest Pain, Palpitations, Orthopnea, Paroxysmal Noc. Dyspnea, Edema, Lt Headedness, Other Gastrointestinal: No: Nausea, Vomiting, Abdominal Pain, Diarrhea, Constipation, Melena, Hematochezia, Other Genitourinary: No Dysuria, No Frequency, No Incontinence, No Hematuria, No Retention, No Other Musculoskeletal: No: other, neck pain, shoulder pain, arm pain, back pain, hand pain, leg pain, foot pain Skin: No: Rash, Lesions, Jaundice, Bruising, Other Neurological: No: Weakness, Numbness, Incoordination, Change in speech, Confusion, Seizures, Other Allergies: Coded Allergies: Caffeine (Verified Allergy, Severe, DIARRHEA, HEADACHES, STOMACH PAINS, 05/01/12) Uncoded Allergies: CODEINE (Allergy, Unknown, 07/30/25) Medications Current Medications Medications Dose Ordered Sig/Radha Route Start Time Stop Time Status Last Admin Dose Admin Acetaminophen/ Hydrocodone Bitart 1 tab Q4HP PRN PO 07/30/25 15:45 UNV Exam Vital Signs Vital Signs Date Time Temp Pulse Resp B/P (MAP) Pulse Ox O2 Delivery O2 Flow Rate FiO2 07/30/25 14:06 135 24 99/69 (79) 100 07/30/25 12:00 Room Air* 0 21 07/30/25 11:15 98.1 98.1 General Appearance: Alert, Oriented X3, Cooperative, mild distress HEENT: Atraumatic, PERRLA Respiratory: Clear to auscultation, Normal air movement Cardiovascular: Normal S1, Normal S2, Other (atrial fibrillation) Abdominal: Normal bowel sounds Extremities: No clubbing, No cyanosis Skin: No rashes, No breakdown, No significant lesion Labs/Xrays Labs Test 07/30/25 14:04 07/30/25 12:24 Range/Units Urine Color Yellow Yellow Urine Clarity Clear Clear Urine pH 6.0 5.0-9.0 Urine Specific [place] 1.024 1.001-1.035 Urine Protein Trace H Negative Urine Ketones Negative Negative Urine Blood Negative Negative /uL Urine Nitrite Negative Negative Urine Bilirubin Negative Negative Urine Urobilinogen Normal Negative mg/dL Urine Leukocyte Esterase Negative Negative /uL Urine RBC 1 0 - 4 /hpf Urine Microscopic WBC 3 0-5 /HPF Urine Squamous Epithelial Cells Few <5 /hpf Urine Bacteria None seen None Seen /hpf Urine Mucus Few None Seen Urine Glucose Normal Normal mg/dL White Blood Count 8.7 4.4-10.8 10^3/uL Red Blood Count 3.05 L 4.0-5.20 10^6/uL Hemoglobin 9.5 L 12.2-16.2 g/dL Hematocrit 29.0 L 36.0-46.0 % Mean Corpuscular Volume 95.1 80.0-100.0 fL Mean Corpuscular Hemoglobin 31.2 28.0-32.0 pg Mean Corpuscular Hemoglobin Concent 32.8 32.0-36.0 g/dL Red Cell Distribution Width 18.3 H 11.8-14.3 % Platelet Count 323 140-450 10^3/uL Mean Platelet Volume 7.9 6.9-10.8 fL Neutrophils (%) (Auto) 74.2 37.0-80.0 % Lymphocytes (%) (Auto) 12.4 10.0-50.0 % Monocytes (%) (Auto) 12.7 H 0.0-12.0 % Eosinophils (%) (Auto) 0.2 0.0-7.0 % Basophils (%) (Auto) 0.5 0.0-2.0 % Neutrophils # (Auto) 6.4 1.6-8.6 10 ^3/uL Lymphocytes # (Auto) 1.1 0.4-5.4 10 ^3/uL Monocytes # (Auto) 1.1 0-1.3 10 ^3/uL Eosinophils # (Auto) 0 0-0.8 10 ^3/uL Basophils # (Auto) 0 0-0.2 10 ^3/uL Nucleated Red Blood Cells 0.2 % Sodium Level 142 136-145 mmol/L Potassium Level 4.7 3.5-5.1 mmol/L Chloride Level 108 H 98-107 mmol/L Carbon Dioxide Level 26 20-31 mmol/L Anion Gap 8 5-15 Blood Urea Nitrogen 16 9-23 mg/dL Creatinine 1.05 H 0.550-1.02 mg/dL Glomerular Filtration Rate Calc 52 >90 mL/min BUN/Creatinine Ratio 15.2 10.0-20.0 Serum Glucose 110 H 74-106 mg/dL Calcium Level 8.8 8.7-10.4 mg/dL Troponin I High Sensitivity 30 </=34 ng/L CHEST RADIOGRAPH COMPARISON: None FINDINGS: The cardiac silhouette is enlarged. The lungs demonstrate bilateral patchy airspace opacities. The pulmonary vasculature is prominent. Small bilateral pleural effusions. There is no pneumothorax. Aortic atherosclerotic disease. IMPRESSION: Cardiomegaly with pulmonary vascular congestion and bilateral patchy airspace opacities. Small bilateral pleural effusions SEPSIS Sepsis Screen Date sepsis recognized/suspect: Jul 30, 2025 Time Sepsis recognized/suspect: 1200 Recent Procedure: No On Antibiotic Therapy: No Respiratory Rate >20: No Heart Rate >90: No Temp<36 C (96.8 F) or >38.3 C: No SBP <90 or MAP <65 mmHG: No New Acute Mental Status Change: No Is the patient on CPAP, BIPAP,: No Physician Orders Chest Portable (07/30/25 11:58) Amiodarone 360mg/200ml Premix (Nexterone (07/30/25 12:15) Insert Garland Catheter QSHIFT (07/30/25 12:58) Admit (07/30/25 15:36) Code Status (07/30/25 15:36) 2 Gm Sodium Diet (07/30/25 Dinner) Hydrocodone-Acet 5/325mg Tab (Hornick /32 (07/30/25 15:45) Ondansetron Hcl (Zofran) (07/30/25 15:45) Docusate Sodium Capsule (Colace Capsule) (07/30/25 15:45) Complete Blood Count (07/31/25 04:00) Comprehensive Metabolic Panel (07/31/25 04:00) Condition: Serious (07/30/25 15:36) Acetaminophen Tablet (Tylenol Tablet) (07/30/25 15:45) Nitroglycerin Sublingual (Ntrostat Subli (07/30/25 15:45) Morphine Sulfate Injection (07/30/25 15:45) Stat Ekg For Chest Pain (07/30/25 15:36) Notify Md Of Changes From Base (07/30/25 15:36) Automatic Lathe Tender For 24 Hours (07/30/25 15:36) Emergency Dysrhythmia Protocol (07/30/25 15:36) Rhythm Strips Once Every Shift (07/30/25 15:36) Oxygen By Nasal Cannula (07/30/25 15:36) Vital Signs Date Time Temp Pulse Resp B/P (MAP) Pulse Ox O2 Delivery O2 Flow Rate FiO2 07/30/25 14:06 135 24 99/69 (79) 100 07/30/25 13:50 106/67 07/30/25 13:15 130 07/30/25 12:00 130 22 109/68 (82) 100 07/30/25 12:00 130 22 100 Room Air* 0 21 07/30/25 11:15 98.1 130 20 124/82 97 98.1 07/30/25 11:05 130 Laboratory Tests Test 07/30/25 12:24 White Blood Count 8.7 10^3/uL (4.4-10.8) Medications Medications Dose Ordered Sig/Radha Route Start Time Stop Time Status Last Admin Dose Admin Amiodarone HCl 100 ml @ 600 mls/hr ONCE ONCE IV 07/30/25 12:00 07/30/25 12:09 DC 07/30/25 12:35 600 MLS/HR Amiodarone HCL/ Dextrose 200 ml @ 33.33 mls/ hr ONCE ONCE IV 07/30/25 12:15 07/30/25 18:15 07/30/25 12:58 33.33 MLS/HR Furosemide 40 mg ONCE ONCE IV 07/30/25 13:30 07/30/25 13:31 DC 07/30/25 13:50 40 MG Assessment/Plan Assessment/Plan Assessment: Atrial fibrillation with RVR, Pulmonary vascular congestion, Bilateral pleural effusions, COPD, CHF, Chronic renal disease, Hypertension, Plan: Admit to Tele, IV amiodarone, Consider cardiology consult, IV Lasix, Home medications reconciled, Plan discussed with: Patient My Orders Orders - CALDERON ESCOBAR Procedure Category Date Status Time Admit ADMIT 07/30/25 Transmitted 15:36 Code Status CODE 07/30/25 Transmitted 15:36 2 Gm Sodium Diet DIET 07/30/25 Transmitted Dinner Hydrocodone-Acet PHA 07/30/25 Transmitted 5/325mg Tab (Hornick 15:45 Ondansetron Hcl PHA 07/30/25 Transmitted (Zofran) 15:45 Docusate Sodium PHA 07/30/25 Transmitted Capsule (Colace 15:45 Complete Blood Count LAB 07/31/25 Verified 04:00 Comprehensive LAB 07/31/25 Verified Metabolic Panel 04:00 Condition: Serious KATRINA 07/30/25 Transmitted 15:36 Acetaminophen Tablet PHA 07/30/25 Transmitted (Tylenol Tablet) 15:45 Nitroglycerin PHA 07/30/25 Transmitted Sublingual (Ntrostat 15:45 Morphine Sulfate PHA 07/30/25 Transmitted Injection 15:45 Stat Ekg For Chest KATRINA 07/30/25 Transmitted Pain 15:36 Notify Md Of Changes [facility] 07/30/25 Transmitted From Base 15:36 Automatic Lathe Tender For [facility] 07/30/25 Transmitted 24 Hours 15:36 Emergency Dysrhythmia [facility] 07/30/25 Transmitted Protocol 15:36 Rhythm Strips Once [facility] 07/30/25 Transmitted Every Shift 15:36 Oxygen By Nasal RT 07/30/25 Transmitted Cannula 15:36 Date of Service: Jul 30, 2025 Billing Provider: CALDERON ESCOBAR Common Visit Codes: [id number] INP/OBS CARE (MOD) CALDERON ESCOBAR Jul 30, 2025 16:13
[2025-07-30] MEDS ORDERED: FUROSEMIDE 40 MG/4 ML VIAL IV ONE (16:15)
[2025-07-30] MEDS: AMIODARONE 360mg/200mL PREMIX 200 ML IV SCH (18:58)
[2025-07-30] MEDS: APIXABAN 2.5 MG TAB PO SCH (22:00)
[2025-07-30] MEDS: CARVEDILOL 3.125 MG TAB PO SCH (22:00)
[2025-07-30] MEDS: ATORVASTATIN 20 MG TAB PO SCH (22:00)
[2025-07-30] MEDS: ONDANSETRON HCL 4 MG/2 ML VIAL IV PRN (22:52)
[2025-07-30] MEDS: HYDROcodone-ACET 5/325MG TAB PO PRN (22:52)
[2025-07-30] MEDS: ACETAMINOPHEN 325 MG TAB PO PRN (22:52)
[2025-07-31] VITALS (13 sets, daily range): BP systolic 87–112; BP diastolic 52–66; PULSE 88–104; RESP 17–20; TEMP 97.1–99.3; O2SAT 95–100
[2025-07-31] MEDS: AMIODARONE 360mg/200mL PREMIX 200 ML IV SCH (00:54)
[2025-07-31] MEDS: FUROSEMIDE 40 MG TAB PO SCH (06:05)
[2025-07-31 08:07] LABS: Hematocrit 32.1 % (36.0-46.0); Hemoglobin 9.9 g/dL (12.2-16.2); Mean Corpuscular Hemoglobin 31.0 pg (28.0-32.0); Mean Corpuscular Volume 100.2 fL (80.0-100.0); Nucleated Red Blood Cells % 0.1 %
[2025-07-31 08:33] LABS: Alanine Aminotransferase 17 U/L (7-40); Albumin 2.8 g/dL (3.2-4.8); Alkaline Phosphatase 75 U/L (46-116); Anion Gap 13 (5-15); BUN/Creatinine Ratio 20.6 (10.0-20.0); Bilirubin, Total 0.6 mg/dL (0.2-1.0); Blood Urea Nitrogen 26 mg/dL (9-23); Calcium 8.5 mg/dL (8.7-10.4); Carbon Dioxide 24 mmol/L (20-31); Chloride 105 mmol/L (98-107); Glucose 128 mg/dL (74-106); Potassium 4.8 mmol/L (3.5-5.1); Sodium 142 mmol/L (136-145); Total Protein 5.1 g/dL (5.7-8.2)
[2025-07-31] MEDS: IPRATROPIUM BROM 0.5 MG/2.5ML INH SOL NEB ONE (09:03)
--- NOTE | 2025-07-31 09:31 | ECG ---
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
--- NOTE | 2025-07-31 11:19 | DVH ---
CHEST RADIOGRAPH Indication: SOB Technique: Single frontal view of the chest was obtained Comparison: XY CHEST PORTABLE on DOS: 07/30/25, XY CHEST PORTABLE on DOS: 11/15/24, XY CHEST PORTABLE o n DOS: 11/11/24 FINDINGS: Lines and Tubes: None Lungs: Worsening bibasilar airspace disease. Increasing right pleural effusion. Pleura: Increasing right pleural effusion No pneumothorax. Cardiomediastinal contours: Unremarkable Bones: No acute osseous abnormality. IMPRESSION: 1. Increasing bibasilar airspace disease. 2. Increasing right lower lobe consolidation may represent effusion.
[2025-07-31] MEDS: SODIUM CHLORIDE 0.9% 1,000 ML IV SCH (14:45)
--- NOTE | 2025-07-31 15:28 | DVHPN2 ---
Subjective revoked hospice and came in because she was short of breath/then states had pneumonia in past month/weeks and was treated at home by hospice Changes from previous H/P or p: No Changes Eyes: No Pain, No Vision change, No Conjunctivae inflammation, No Eyelid inflammation, No Other, No Redness ENT: No Ear pain, No Ear discharge, No Nose pain, No Nose discharge, No Nose congestion, No Mouth pain, No Mouth swelling, No Throat pain, No Throat swelling, No Other Cardiovascular: No Chest Pain, No Palpitations, No Orthopnea, No Paroxysmal Noc. Dyspnea, No Edema, No Lt Headedness, No Other Respiratory: No Cough, No Dry, No Shortness of breath, No SOB with excertion, No Wheezing, No Hemoptysis, No Pleuritic Pain, No Sputum, No Other Gastrointestinal: No Nausea, No Vomiting, No Abdominal Pain, No Diarrhea, No Constipation, No Melena, No Hematochezia, No Other Genitourinary: No Dysuria, No Frequency, No Incontinence, No Hematuria, No Retention, No Other Musculoskeletal: No other, No neck pain, No shoulder pain, No arm pain, No back pain, No hand pain, No leg pain, No foot pain Skin: No Rash, No Lesions, No Jaundice, No Bruising, No Other Objective Vitals Vital Signs Date Time Temp Pulse Resp B/P (MAP) Pulse Ox O2 Delivery O2 Flow Rate FiO2 07/31/25 13:00 98.5 88 19 87/52 (64) 98 98.5 07/31/25 10:00 Room Air 2.0 07/31/25 10:00 28 Intake/Output Intake and Output 07/31/25 07:00 Intake Total 419.98 ml Output Total 1100 ml Balance -680.02 ml Intake Oral 120 ml IV Total 299.98 ml Output Urine Total 1100 ml General Appearance: Alert, Oriented X3, Cooperative, mild distress HEENT: Atraumatic, PERRLA, EOMI, Mucous membr. moist/pink Lungs: Other (rales rt lower lobe) Cardiovascular: Regular rate, Normal S1, Normal S2, No murmurs Abdomen: Normal bowel sounds, Soft, No tenderness, No hepatospenomegaly Medications Current Medications Medications Dose Ordered Sig/Radha Route Start Time Stop Time Status Last Admin Dose Admin Acetaminophen/ Hydrocodone Bitart 1 tab Q4HP PRN PO 07/30/25 15:45 07/30/25 22:52 1 TAB Docusate Sodium 100 mg BIDPRN PRN PO 07/30/25 15:45 Acetaminophen 650 mg Q6HP PRN PO 07/30/25 15:45 07/30/25 22:52 650 MG Apixaban 2.5 mg BID PO 07/30/25 22:00 07/30/25 22:00 2.5 MG Carvedilol 3.125 mg BID PO 07/30/25 22:00 07/30/25 22:00 3.125 MG Furosemide 40 mg QAM PO 07/31/25 07:00 07/31/25 08:39 40 MG Atorvastatin Calcium 40 mg HS PO 07/30/25 22:00 07/30/25 22:00 40 MG Amiodarone HCL/ Dextrose 200 ml @ 16.66 mls/ hr Q12H IV 07/30/25 23:45 07/31/25 01:32 16.66 MLS/HR Amiodarone HCL/ Dextrose 200 ml @ 16.66 mls/ hr Q12H IV 07/31/25 00:45 07/31/25 13:03 16.66 MLS/HR Ceftriaxone Sodium 50 ml @ 100 mls/hr DAILY@09 IV 08/01/25 09:00 Sodium Chloride 1,000 ml @ 60 mls/hr [id number] IV 07/31/25 14:45 Laboratory Results Laboratory Tests 07/31/25 07:38 Chemistry Test 07/31/25 07:38 Albumin 2.8 g/dL (3.2-4.8) L Calcium Level 8.5 mg/dL (8.7-10.4) L Total Protein 5.1 g/dL (5.7-8.2) L LFT Test 07/31/25 07:38 Alanine Aminotransferase (ALT) 17 U/L (7-40) Alkaline Phosphatase 75 U/L (46-116) Aspartate Amino Transferase (AST) 30 U/L (13-40) Total Bilirubin 0.6 mg/dL (0.2-1.0) Urinalysis Test 07/30/25 14:04 Urine Color Yellow (Yellow) Urine Clarity Clear (Clear) Urine pH 6.0 (5.0-9.0) Urine Specific [place] 1.024 (1.001-1.035) Urine Protein Trace (Negative) H Urine Ketones Negative (Negative) Urine Blood Negative /uL (Negative) Urine Nitrite Negative (Negative) Urine Bilirubin Negative (Negative) Urine Urobilinogen Normal mg/dL (Negative) Urine Leukocyte Esterase Negative /uL (Negative) Urine RBC 1 /hpf (0 - 4) Urine Microscopic WBC 3 /HPF (0-5) Urine Squamous Epithelial Cells Few /hpf (<5) Urine Bacteria None seen /hpf (None Seen) Urine Mucus Few (None Seen) Urine Glucose Normal mg/dL (Normal) Labs and/or images reviewed: Labs reviewed by me, Image(s) reviewed by me Assessment/Plan Assessment/Plan rt lower lobe pneumonia-treat/culture sepsis from above acute on chronic systolic chf- last echo ef 30 % recheck/consult cardio paroxysmal atrial fibrillation- rate control/declines anticoagulation due to reccurrent bleed in the past/advised risks of cva chronic respiratory failure copd- bedbound status for months anemia- stable abm0p-zcolyka/recheck Plan discussed with: Patient, Other My Orders Orders - JEANNINE INTERIANO MD Procedure Category Date Status Time Blood Culture GEN 07/31/25 Logged 14:35 Ceftriaxone 1gm/50ml PHA 08/01/25 In Process (Rocephin) 09:00 Sodium Chloride 0.9% PHA 07/31/25 In Process 14:45 Urine Bacterial GEN 07/31/25 Logged Culture 14:39 Marketing Analytics Lead For KATRINA 07/31/25 In Process 24 Hours 14:40 Date of Service: Jul 31, 2025 Billing Provider: JEANNINE INTERIANO MD Common Visit Codes: [id number] INP/OBS CARE(HIGH) JEANNINE INTERIANO MD Jul 31, 2025 15:28
[2025-07-31] MEDS ORDERED: DOBUTamine 1000MCG/ML 250 ML IV SCH (16:15)
[2025-08-01] VITALS (9 sets, daily range): BP systolic 94–135; BP diastolic 60–77; PULSE 100–119; RESP 16–22; TEMP 97.2–99.3; O2SAT 95–99
[2025-08-01 08:06] LABS: Hematocrit 29.9 % (36.0-46.0); Hemoglobin 9.9 g/dL (12.2-16.2); Mean Corpuscular Hemoglobin 31.0 pg (28.0-32.0); Mean Corpuscular Volume 94.0 fL (80.0-100.0); Nucleated Red Blood Cells % 0.1 %
[2025-08-01 08:13] LABS: Anion Gap 11 (5-15); Carbon Dioxide 26 mmol/L (20-31); Chloride 103 mmol/L (98-107); Potassium 3.8 mmol/L (3.5-5.1); Sodium 140 mmol/L (136-145)
[2025-08-01 08:18] LABS: Calcium 8.4 mg/dL (8.7-10.4)
[2025-08-01 08:19] LABS: BUN/Creatinine Ratio 18.4 (10.0-20.0); Blood Urea Nitrogen 21 mg/dL (9-23); Glucose 115 mg/dL (74-106)
--- NOTE | 2025-08-01 11:56 | DVHSR ---
APPROVED REPORT EXAM: Two-dimensional and M-mode echocardiogram with Doppler and color Doppler. Blood Pressure: 94/60 mmHg INDICATION Heart Failure RISK FACTORS Height: 5'1", Weight: 180 DIMENSIONS LVDd5.3 (3.8-5.7cm)LA (2D)5.5 (1.9-4.0cm)Aortic Root3.1 (2.0-3.7cm) LVDs4.3 (2.5-4.0cm)LA (MM) (1.9-4.0cm)Aortic Cusp Exc1.6 (1.5-2.0cm) EF (%) 37.0 (55-70%)Rt. Atrium5.4 (1.9-4.0cm)Asc. Aorta cm IVSd0.7 (0.7-1.1cm)RV (D)4.1 (1.8-2.4cm) Mitral Valve MitralMitral Stenosis E wave1.55m/sMV Mean GR.5mmHg A wavem/sMV Peak GR.12mmHg E/A ratio0.02D MVAcm2 DECEL TimemsPRESS 1/2 [id number] IVRTmsDop MVA1.82cm2 Aortic Valve Aortic ValveAortic Stenosis V10.97m/Stewart Mean GR.3mmHg V21.02m/Stewart Peak GR.4mmHg LVOT Diameter1.6 (1.8-2.4cm)Doppler AVA1.91cm2 AI P 1/2 Muog770.03ms Pulmonic Valve V21.11m/s Tricuspid Valve TR Velocity3.04m/s [id number] Conclusion ctbw75-17% global dysfunction moderate MS, mean gradient of 5 mmhg mitraclip in MV ,mild mitral regurg severe tricuspid regurg severe biatrial enlargement moderate pulm htn
--- NOTE | 2025-08-01 14:57 | DVHPN2 ---
Assessment/Plan Assessment/Plan progress note 84 F on home hospice w COPD, HFrEF, pAFib, revoked hospice admitted for sob. 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
[2025-08-01] MEDS: DOCUSATE SOD 100 MG CAP PO PRN (17:22)
[2025-08-01] MEDS ORDERED: ONDA-155 PO (19:19)
[2025-08-01] MEDS ORDERED: NITR0.4S29 SL (19:19)
[2025-08-01] MEDS ORDERED: ASPI1TAB20 PO (19:19)
[2025-08-01] MEDS ORDERED: AMIODARONE 360mg/200mL PREMIX 200 ML IV ONE (23:38)
[2025-08-02] VITALS (12 sets, daily range): BP systolic 98–136; BP diastolic 49–70; PULSE 87–119; RESP 17–22; TEMP 96.8–98.3; O2SAT 94–100
[2025-08-02] MEDS: AMIODARONE HCL 200 MG TAB PO ONE (12:55)
[2025-08-02] MEDS: POLYETHYLENE GLYCOL 17 GM PWDR PO ONE (16:39)
--- NOTE | 2025-08-02 18:40 | DVHPN2 ---
Assessment/Plan Assessment/Plan progress note 84 F on home hospice w COPD, HFrEF, pAFib, revoked hospice admitted for sob. seen today, diurising well, switched to PO amio, rate controloled. constipated, given miralax. 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 PNA gp vs gn pafib not on AC 2/2 recurrent bleed, restarted this admission COPD group E bedbound sepsis VICKY VMN on CKD acute on chronic systolic HF HFrEF 30% mod MS MR s/p mitraclip mod pHTN Obesity diurese, switch to po lasix tomorrow amio, switch to PO ceftriaxone follow culture resume home meds pain mgmt diet cardiac dvt ppx on eliquis full code Plan discussed with: Patient My Orders Orders - AUGUSTIN ALICIA MD Procedure Category Date Status Time Amiodarone Tablet PHA 08/02/25 In Process (Cordarone Tablet) 22:00 Polyethylene Glycol PHA 08/03/25 In Process 17g Powder (Miralax 10:00 Date of Service: Aug 02, 2025 Billing Provider: AUGUSTIN ALICIA MD Common Visit Codes: [id number] INP/OBS CARE(HIGH) AUGUSTIN ALICIA MD Aug 02, 2025 18:40
[2025-08-02] MEDS: AMIODARONE HCL 200 MG TAB PO SCH (21:31)
[2025-08-03] VITALS (10 sets, daily range): BP systolic 100–134; BP diastolic 40–79; PULSE 90–111; RESP 16–22; TEMP 97.7–98.8; O2SAT 98–100
[2025-08-03 06:22] LABS: Hematocrit 29.5 % (36.0-46.0); Hemoglobin 9.9 g/dL (12.2-16.2); Mean Corpuscular Hemoglobin 30.7 pg (28.0-32.0); Mean Corpuscular Volume 91.7 fL (80.0-100.0); Nucleated Red Blood Cells % 0.2 %
[2025-08-03 06:39] LABS: Anion Gap 9 (5-15); Chloride 101 mmol/L (98-107); Sodium 143 mmol/L (136-145)
[2025-08-03 06:45] LABS: BUN/Creatinine Ratio 20.6 (10.0-20.0); Blood Urea Nitrogen 20 mg/dL (9-23); Glucose 101 mg/dL (74-106)
[2025-08-03 06:50] LABS: Potassium 3.3 mmol/L (3.5-5.1)
[2025-08-03 06:51] LABS: Calcium 8.1 mg/dL (8.7-10.4); Carbon Dioxide 33 mmol/L (20-31)
[2025-08-03] MEDS: POLYETHYLENE GLYCOL 17 GM PWDR PO SCH (10:03)
--- NOTE | 2025-08-03 15:03 | DVHPN2 ---
Assessment/Plan Assessment/Plan progress note 84 F on home hospice w COPD, HFrEF, pAFib, revoked hospice admitted for sob. diurising well, switched to PO amio, rate controloled. constipated, given miralax. seen today, improved. still weak. PT for deconditioning. 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 PNA gp vs gn pafib not on AC 2/2 recurrent bleed, restarted this admission COPD group E bedbound sepsis VICKY VMN on CKD acute on chronic systolic HF HFrEF 30% mod MS MR s/p mitraclip mod pHTN Obesity diurese, switch to po lasix tomorrow amio, switch to PO ceftriaxone follow culture resume home meds pain mgmt diet cardiac dvt ppx on eliquis full code Plan discussed with: Patient, Daughter My Orders Orders - AUGUSTIN ALICIA MD Procedure Category Date Status Time Polyethylene Glycol PHA 08/03/25 In Process 17g Powder (Miralax 10:00 Pt Request For Service PT 08/03/25 Logged 12:01 * 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
[2025-08-03] MEDS: POTASSIUM EFFERVESENT TAB 25 MEQ PO ONE (15:28)
[2025-08-03] MEDS: ALBUTEROL SULF 2.5 MG/0.5ML(0.5%) NEB SOLN NEB PRN (22:00)
[2025-08-04] VITALS (11 sets, daily range): BP systolic 103–130; BP diastolic 46–86; PULSE 72–107; RESP 14–22; TEMP 97.3–98.2; O2SAT 96–100
--- NOTE | 2025-08-04 15:36 | DVHPN2 ---
Assessment/Plan Assessment/Plan progress note 84 F on home hospice w COPD, HFrEF, pAFib, revoked hospice admitted for sob. diurising well, switched to PO amio, rate controloled. constipated, given miralax. seen today, patient want to return home per patient but per daughter no one to take care of her. she would benefit from snf. 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
[2025-08-05] VITALS (15 sets, daily range): BP systolic 104–149; BP diastolic 62–80; PULSE 80–108; RESP 16–36; TEMP 97.6–98.4; O2SAT 94–100
--- NOTE | 2025-08-05 03:02 | DVH ---
CHEST RADIOGRAPH Indication: doctors request Technique: Single frontal view of the chest was obtained COMPARISON: XY CHEST XRAY 1 VIEW on DOS: 07/31/25, XY CHEST PORTABLE on DOS: 07/30/25, XY CHEST SUNNY BLE on DOS: 11/15/24, XY CHEST PORTABLE on DOS: 11/11/24, XY CHEST PORTABLE on DOS: 11/09/24 FINDINGS: Lines and Tubes: None Lungs: Stable appearing bilateral pleural effusions and moderate diffuse increased prominence of the pulmonary vasculature. No pneumothorax. Cardiomediastinal contours: Cardiomegaly. Bones: Unremarkable IMPRESSION: 1. Stable appearing bilateral pleural effusions and moderate diffuse increased prominence of the pulm onary vasculature. 2. Cardiomegaly.
[2025-08-05 03:44] LABS: Base Excess 11.0 mmol/L (-2.0-3.0)
[2025-08-05 06:14] LABS: Hematocrit 29.9 % (36.0-46.0); Hemoglobin 9.7 g/dL (12.2-16.2); Mean Corpuscular Hemoglobin 29.9 pg (28.0-32.0); Mean Corpuscular Volume 92.6 fL (80.0-100.0); Nucleated Red Blood Cells % 0.1 %
[2025-08-05 06:21] LABS: Chloride 99 mmol/L (98-107); Potassium 3.8 mmol/L (3.5-5.1); Sodium 143 mmol/L (136-145)
[2025-08-05 06:22] LABS: Anion Gap 8 (5-15)
[2025-08-05 06:25] LABS: Calcium 8.5 mg/dL (8.7-10.4); Carbon Dioxide 36 mmol/L (20-31)
[2025-08-05 06:27] LABS: BUN/Creatinine Ratio 22.6 (10.0-20.0); Blood Urea Nitrogen 19 mg/dL (9-23)
[2025-08-05 06:29] LABS: Glucose 108 mg/dL (74-106)
--- NOTE | 2025-08-05 08:41 | DVHPN2 ---
Assessment/Plan Assessment/Plan progress note 84 F on home hospice w COPD, HFrEF, pAFib, revoked hospice admitted for sob. diurising well, switched to PO amio, rate controloled. constipated, given miralax. seen today, lung sounds unchanged. diuresing to goal, good appetite, switching to iv steroid and lasix back. cardenas leaking, will attempt to use comode but pt is incontinent. if needed will replace. family insist on cardio and pulm. will defer management to them. 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 PNA gp vs gn pafib not on AC 2/2 recurrent bleed, restarted this admission COPD group E bedbound sepsis VICKY VMN on CKD acute on chronic systolic HF HFrEF 30% mod MS MR s/p mitraclip mod pHTN Obesity diurese, switch to po lasix tomorrow amio, switch to PO ceftriaxone follow culture resume home meds pain mgmt diet cardiac dvt ppx on eliquis full code Plan discussed with: Patient My Orders Orders - AUGUSTIN ALICIA MD Procedure Category Date Status Time Respiratory Culture GEN 08/05/25 Logged W/ Gs 08:37 Date of Service: Aug 05, 2025 Billing Provider: AUGUSTIN ALICIA MD Common Visit Codes: [id number] INP/OBS CARE(HIGH) AUGUSTIN ALICIA MD Aug 05, 2025 08:41
[2025-08-05] MEDS: FUROSEMIDE 40 MG/4 ML VIAL IV SCH (09:05)
[2025-08-05] MEDS: methylPREDNISolone SOD SUCC 40 MG/ML VL IV SCH (09:06)
[2025-08-05] MEDS ORDERED: FUROSEMIDE 40 MG/4 ML VIAL IV ONE (16:30)
[2025-08-05] MEDS ORDERED: MELATONIN 5 MG TAB PO PRN (16:30)
[2025-08-05] MEDS ORDERED: AZITHROMYCIN 500MG/ 250ML 250 ML IV ONE (16:45)
--- NOTE | 2025-08-05 16:45 | DVHINCON2 ---
GEOFFREY DIAZ RESIDENT 08/05/25 1645: Date Seen: Aug 05, [address] Burger Reason for Consultation Patient and family request to be seen by cardio for CHF, A-fib History of Present Illness Delmi Cornejo is a 84-year-old female patient who presents to ED with chief complaint of dyspnea, stabbing left-sided chest pain worsens with breathing, which started one week ago after patient initiated hospice and was off of her GDM T for her heart failure, associated with decrease in appetite and unintentional weight loss (patient did not measure her weight). Patient reports being hospitalized three weeks ago in [facility] due to probable [place], having to be transferred to [facility] where she stress test which was positive for ischemia and posterior left heart catheterization which showed no significant coronary obstruction. Denies any other associated symptoms. Patient does not want to be on hospice, she wants everything done even implantable defibrillator. Cardiology was consulted to guide her treatment. Past medical history: Hypertension, dyslipidemia, ischemic cardiomyopathy, coronary artery disease with multiple coronary angiographies last stent placed in in October 2024 to LAD, congestive heart failure (HFrEF previously 18% currently 30-35%), history of mitral regurgitation status post mitral clip placement five years ago, permanent atrial fibrillation/atrial flutter (chads Vasc 6) on apixaban, lupus, Ethan's thyroiditis, COPD/asthma on home oxygen with 4 L/min, IBS, chronic kidney disease stage 3, PID replacement of stents two years ago. Surgical history: Appendectomy, hysterectomy, cholecystectomy, mitral clip five years ago Walker, multiple coronary angiographies last one three weeks ago with no stents placed, peripheral angiography with stent placement two years ago Family history: Daughters have lupus, COPD, Ethan's thyroiditis, CKD. Father, and grandfather of stroke Social history: Lives in [facility] with daughter (NOK is Tonja, the daughter that is her neighbor). Denies current tobacco, alcohol and other drug abuse Allergies: Caffeine (she is not allergic to codeine) Home medication: Albuterol, apixaban, aspirin, atorvastatin, carvedilol, empagliflozin, famotidine, furosemide, guaifenesin, [place], ipratropium, lisinopril, amitriptyline, Zofran Patient seen and examined at bedside. Currently complains of dyspnea, continues with nasal cannula at 4 L/min Past Medical History Per HPI Past Surgical History Per HPI Family History: Cerebrovascular accident (CVA) G8 FATHER Hypertension G8 FATHER Family History Per HPI Social History Per HPI Allergies: Coded Allergies: Caffeine (Verified Allergy, Severe, DIARRHEA, HEADACHES, STOMACH PAINS, 05/01/12) Uncoded Allergies: CODEINE (Allergy, Unknown, 07/30/25) Allergies Per HPI Home Meds Active Scripts Apixaban Base (ELIQUIS) 2.5 Mg Tab, 2.5 MG PO BID for 30 Days, #60 TAB 5 Refills Prov:CARLOS BARON MD 11/16/24 Empagliflozin (Jardiance) 10 Mg Tab, 10 MG PO DAILY for 30 Days, #30 TAB 5 Refills Prov:CARLOS BARON MD 11/16/24 Famotidine (PEPCID TABLET) 20 Mg Tb, 1 TAB PO BID, #60 TAB 0 Refills Prov:PERCY HAYES MD 11/12/24 Lisinopril (Lisinopril) 5 Mg Tab, 5 MG PO DAILY for 30 Days, #30 TAB 0 Refills Prov:PERCY HAYES MD 11/12/24 Furosemide (Furosemide) 20 Mg Tab, 20 MG PO DAILY for 30 Days, #30 TAB 0 Refills Prov:PERCY HAYES MD 11/12/24 Carvedilol (COREG) 3.125 Mg Tab, 3.125 MG PO BID for 30 Days, #60 TAB 0 Refills Prov:PERCY HAYES MD 11/12/24 Atorvastatin Calcium (ATORVASTATIN CALCIUM) 20 Mg Tab, 20 MG PO HS for 30 Days, #30 TAB 0 Refills Prov:PERCY HAYES MD 11/12/24 Albuterol Sulfate (Albuterol Sulfate Hfa) 108 Mcg/Act Aer, 216 MCG IN QIDP for 30 Days, #18 GRAMS Prov:CARLOS BARON MD 01/21/24 Potassium Chloride (Potassium Chloride ER) 10 Meq Tab, 1 TAB PO DAILY, #30 TAB Prov:JOJO ESPINAL MD 07/30/23 Ipratropium-Albuterol (Ipratropium [place]/Albut) 1 Delmis Delmis, 1 DELMIS IN BID, #30 ML Prov:JOJO ESPINAL MD 07/30/23 Furosemide (Furosemide) 40 Mg Tab, 1 TAB PO QAM, #30 TAB Prov:JOJO ESPINAL MD 07/30/23 Reported Medications Ondansetron HCl (Ondansetron) 4 Mg Tab, 4 MG PO, TAB 08/01/25 Nitroglycerin (NTROSTAT SUBLINGUAL) 0.4 Mg Sl, 0.4 MG SL PRN, TAB *MAY REPEAT EVERY 5 MINUTES X 3 TOTAL IF NO RELIEF, INITIATE ANALGESIC THERAPY. NOTIFY PHYSICIAN *Do not crush. 08/01/25 Aspirin (Aspir-81) 81 Mg Tab, 1 TAB PO DAILY, #30 TAB 5 Refills 08/01/25 Hydrocodone-Acetaminophen (Hydrocodone Bitartrate/AC 5-325 mg) 1 Tab Tab, 1 TAB PO Q12HR PRN for 15 Days, #30 11/10/24 Guaifenesin (Chest Congestion Relief) 100 Mg/5 Ml Syp, PO 01/16/24 Atorvastatin Calcium (ATORVASTATIN CALCIUM) 40 Mg Tab, 1 TAB PO DAILY 01/16/24 Prednisone (Prednisone) 20 Mg Tab, 1 TAB PO BID 01/16/24 Tiotropium [place] Monohydrate (Spiriva Respimat) 2.5 Mcg/Act Spr, 2 PUFF INH DAILY 01/15/24 Albuterol Sulfate (Albuterol Sulfate Hfa) 108 Mcg/Act Aer, 2 PUFF INH Q4HR PRN 01/15/24 Benzonatate (Benzonatate) 100 Mg Cap, 1 CAP PO TID PRN for FOR COUGH, #30 CAP 01/15/24 Sumatriptan Succinate (Imitrex) 50 Mg Tab, 50 MG PO, TAB 07/29/23 Loperamide Hcl (Loperamide Hcl) 2 Mg Cap, 2 MG PO, MG 07/29/23 Pantoprazole Sodium Sesquihydr (Pantoprazole Sodium) 40 Mg Tab, 1 TAB PO DAILY 07/28/23 Apixaban Base (ELIQUIS) 5 Mg Tab, 1 TAB PO BID 07/28/23 Metoprolol Succinate (Metoprolol Succinate Er) 100 Mg Tab, 1 TAB PO DAILY 07/28/23 Lisinopril (Lisinopril) 20 Mg Tab, 1 TAB PO DAILY 10/16/23 Hydrocodone-Acetaminophen (Hydrocodone Bitartrate/AC 5-325 mg) 1 Tab Tab, 1 TAB PO Q12HR PRN 07/28/23 Discontinued Reported Medications Atorvastatin Calcium (Lipitor) 40 Mg Tab, 1 TAB PO DAILY 01/15/24 Discontinued Scripts Azithromycin (Zithromax Z-Luis) 250 Mg Tab, 250 MG PO DAILY for 4 Days, #4 TAB Prov:CARLOS BARON MD 01/21/24 Methylprednisolone (Medrol Dosepak) 4 Mg Luis, 4 MG PO UD, #21 TAB UAD Prov:CARLOS BARON MD 01/21/24 Current Medications Current Medications Medications (Trade) Dose Ordered Sig/Radha Route PRN Reason Start Time Stop Time Status Last Admin Methylprednisolone Sodium Succinate (Solu Medrol) 40 mg DAILY IV 08/05/25 10:00 08/10/25 09:59 08/05/25 09:06 Furosemide (Lasix Injection) 40 mg DAILY IV 08/05/25 10:00 08/08/25 09:59 08/05/25 09:05 Empaglifozin (Jardiance) 10 mg DAILY PO 08/06/25 10:00 Valsartan (Diovan) 80 mg DAILY PO 08/06/25 10:00 Review of Systems Per HPI Vital Signs Vital Signs Date Time Temp Pulse Resp B/P (MAP) Pulse Ox O2 Delivery O2 Flow Rate FiO2 08/05/25 09:28 93 28 98 08/05/25 09:20 Nasal Cannula* 4 36 08/05/25 09:06 100/63 08/05/25 09:00 97.8 97.8 Physical Exam Patient lying in bed, in no acute distress General: Lucid, afebrile, mucosae are moist Cardiovascular: Normal S1 and S2. Holosystolic murmur best heard in apex that radiates towards axilla intensity 3/6. No gallops or rubs Respiratory: Normal ventilation mechanics. Bibasilar crackles, rest of lung auscultation is clear Abdomen: Soft, nontender, no organomegaly, normal bowel sounds MSK/skin: Mobilizes 4 limbs. Skin is dry and warm, lymphedema in both bilateral limbs Neurological: Oriented in 3 spheres. No motor no sensitive deficits. Pupils are isocoric and reactive Labs/Diagnostic Data Labs Test 08/05/25 05:32 08/05/25 03:30 07/31/25 07:38 07/30/25 14:04 Range/Units White Blood Count 11.1 #H 4.4-10.8 10^3/uL Red Blood Count 3.23 L 4.0-5.20 10^6/uL Hemoglobin 9.7 L 12.2-16.2 g/dL Hematocrit 29.9 L 36.0-46.0 % Mean Corpuscular Volume 92.6 80.0-100.0 fL Mean Corpuscular Hemoglobin 29.9 28.0-32.0 pg Mean Corpuscular Hemoglobin Concent 32.3 32.0-36.0 g/dL Red Cell Distribution Width 17.6 H 11.8-14.3 % Platelet Count 392 140-450 10^3/uL Mean Platelet Volume 7.8 6.9-10.8 fL Neutrophils (%) (Auto) 78.6 37.0-80.0 % Lymphocytes (%) (Auto) 11.3 10.0-50.0 % Monocytes (%) (Auto) 8.4 0.0-12.0 % Eosinophils (%) (Auto) 0.8 0.0-7.0 % Basophils (%) (Auto) 0.9 0.0-2.0 % Neutrophils # (Auto) 8.7 H 1.6-8.6 10 ^3/uL Lymphocytes # (Auto) 1.3 0.4-5.4 10 ^3/uL Monocytes # (Auto) 0.9 0-1.3 10 ^3/uL Eosinophils # (Auto) 0.1 0-0.8 10 ^3/uL Basophils # (Auto) 0.1 0-0.2 10 ^3/uL Nucleated Red Blood Cells 0.1 % Sodium Level 143 136-145 mmol/L Potassium Level 3.8 3.5-5.1 mmol/L Chloride Level 99 98-107 mmol/L Carbon Dioxide Level 36 H 20-31 mmol/L Anion Gap 8 5-15 Blood Urea Nitrogen 19 9-23 mg/dL Creatinine 0.84 0.550-1.02 mg/dL Glomerular Filtration Rate Calc 68 >90 mL/min BUN/Creatinine Ratio 22.6 H 10.0-20.0 Serum Glucose 108 H 74-106 mg/dL Calcium Level 8.5 L 8.7-10.4 mg/dL Blood Gas Specimen Type Arterial Blood Gas Sample Site Right radial Blood Gas Patient Temperature 37.0 Arterial Blood Date Drawn [id number] Arterial Blood pH 7.492 H 7.350-7.450 Arterial Blood Partial Pressure CO2 47.6 H 32.0-45.0 mmHg Arterial Blood Partial Pressure O2 78.7 L 83.0-108.0 mmHg Arterial Blood HCO3 35.6 H 21.0-28.0 mmol/L Arterial Blood Oxygen Saturation 95.2 94.0-98.0 % Arterial Blood Base Excess 11.0 H -2.0-3.0 mmol/L Arterial Blood Oxyhemoglobin 94.3 94.0-98.0 % Arterial Blood Carboxyhemoglobin 0.5 0.5-1.5 % Arterial Blood Methemoglobin 0.4 0.0-1.5 % Theodore Test Yes Blood Gas Total Hemoglobin 10.40 L 12.0-16.0 g/dL Blood Gas Set Respiration Rate 14.0 Blood Gas Modality Mask - bipap FiO2 % 36.0 Blood Gas EPAP 5 Blood Gas IPAP 10 Total Bilirubin 0.6 0.2-1.0 mg/dL Aspartate Amino Transferase (AST) 30 13-40 U/L Alanine Aminotransferase (ALT) 17 7-40 U/L Alkaline Phosphatase 75 46-116 U/L B-Type Natriuretic Peptide 1923.93 0-100 pg/mL Total Protein 5.1 L 5.7-8.2 g/dL Albumin 2.8 L 3.2-4.8 g/dL Urine Color Yellow Yellow Urine Clarity Clear Clear Urine pH 6.0 5.0-9.0 Urine Specific [place] 1.024 1.001-1.035 Urine Protein Trace H Negative Urine Ketones Negative Negative Urine Blood Negative Negative /uL Urine Nitrite Negative Negative Urine Bilirubin Negative Negative Urine Urobilinogen Normal Negative mg/dL Urine Leukocyte Esterase Negative Negative /uL Urine RBC 1 0 - 4 /hpf Urine Microscopic WBC 3 0-5 /HPF Urine Squamous Epithelial Cells Few <5 /hpf Urine Bacteria None seen None Seen /hpf Urine Mucus Few None Seen Urine Glucose Normal Normal mg/dL Test 07/30/25 12:24 Range/Units Troponin I High Sensitivity 30 </=34 ng/L Microbiology Date/Time Source Procedure Growth Status 07/31/25 15:16 Blood Blood Culture - Final NO GROWTH AFTER 5 DAYS OF INCUBATION. Complete 07/30/25 14:04 Voided Urine Urine Culture - Final Complete Assessment Acute on chronic hypoxic respiratory failure Acute on chronic systolic congestive heart failure (HFrEF, LVEF 30-35%) Moderate mitral stenosis and severe tricuspid regurgitation Moderate pulmonary hypertension Permanent atrial fibrillation/flutter (chads Vasc 6)-secondary hypercoagulability state Ischemic cardiomyopathy with history of [place] status post stent placement in 10/2024 Ruled out acute coronary syndrome Questionable community-acquired pneumonia Hospice revoked Obesity Hypertension Dyslipidemia COPD/asthma-on home oxygen at 4 L/min Ethan thyroiditis Lupus IBS CKD stage 3 Peripheral artery disease status post stent placement Plan/Recommendation EKG shows atrial flutter with LBBB (on previous EKGs), troponin negative in patient presents with noncardiac pain. Ruled out acute coronary syndrome Patient has been off of her GDM T due to hospice status for one week. Patient has acute on chronic congestive heart failure. Currently on IV diuretics (furosemide 40 mg b.i.d.). Indicate strict I&Os and [place] catheter placement Echocardiogram shows LVEF 30-35%, moderate mitral stenosis, mitral clip and mitral valve, severe tricuspid regurgitation, severe biatrial enlargement, moderate pulmonary hypertension. Trying to optimize GDM T. Currently on carvedilol, empagliflozin and valsartan. Pending spironolactone. Community-acquired pneumonia rest of baseline disease management per primary team. Goals of care discussed with patient for over 18 minutes: Full code status Discussed plan with Dr. Puckett, patient, family and nurses: Patient currently is on telemetry status. Patient does not want to be comfort care, she wants all procedures deeply for possible done. She may benefit from [employer] with AV ablation eventually once she has stabilized and on GDM T for at least three months. Currently patient on management for her acute on chronic congestive heart failure, continue with IV furosemide try to optimize GDM T. patient has poor prognosis. Plan discussed with: Patient, Daughter, Other (Nurses) NYHA Physical activity limitations: Class4(Severe)discomfort Date of Service: Aug 05, 2025 Billing Provider: WINNIE ETIENNE Sr., MD Cardiology Common Codes: 80718-[id number] INP/OBS CARE (High) Cardiology Secondary Visit Cod: [id number] CARE PLAN 30 MINUTES ALYX PUCKETT MD 08/06/25 1338: Family History: Cerebrovascular accident (CVA) G8 FATHER Hypertension G8 FATHER Allergies: Coded Allergies: Caffeine (Verified Allergy, Severe, DIARRHEA, HEADACHES, STOMACH PAINS, 05/01/12) Uncoded Allergies: CODEINE (Allergy, Unknown, 07/30/25) Home Meds Active Scripts Apixaban Base (ELIQUIS) 2.5 Mg Tab, 2.5 MG PO BID for 30 Days, #60 TAB 5 Refills Prov:CARLOS BARON MD 11/16/24 Empagliflozin (Jardiance) 10 Mg Tab, 10 MG PO DAILY for 30 Days, #30 TAB 5 Re fills Prov:CARLOS BARON MD 11/16/24 Famotidine (PEPCID TABLET) 20 Mg Tb, 1 TAB PO BID, #60 TAB 0 Refills Prov:PERCY HAYES MD 11/12/24 Lisinopril (Lisinopril) 5 Mg Tab, 5 MG PO DAILY for 30 Days, #30 TAB 0 Refills Prov:PERCY HAYES MD 11/12/24 Furosemide (Furosemide) 20 Mg Tab, 20 MG PO DAILY for 30 Days, #30 TAB 0 Refills Prov:PERCY HAYES MD 11/12/24 Carvedilol (COREG) 3.125 Mg Tab, 3.125 MG PO BID for 30 Days, #60 TAB 0 Refills Prov:PERCY HAYES MD 11/12/24 Atorvastatin Calcium (ATORVASTATIN CALCIUM) 20 Mg Tab, 20 MG PO HS for 30 Days, #30 TAB 0 Refills Prov:PERCY HAYES MD 11/12/24 Albuterol Sulfate (Albuterol Sulfate Hfa) 108 Mcg/Act Aer, 216 MCG IN QIDP for 30 Days, #18 GRAMS Prov:CARLOS BARON MD 01/21/24 Potassium Chloride (Potassium Chloride ER) 10 Meq Tab, 1 TAB PO DAILY, #30 TAB Prov:JOJO ESPINAL MD 07/30/23 Ipratropium-Albuterol (Ipratropium [place]/Albut) 1 Delmis Delmis, 1 DELMIS IN BID, #30 ML Prov:JOJO ESPINAL MD 07/30/23 Furosemide (Furosemide) 40 Mg Tab, 1 TAB PO QAM, #30 TAB Prov:JOJO ESPINAL MD 07/30/23 Reported Medications Ondansetron HCl (Ondansetron) 4 Mg Tab, 4 MG PO, TAB 08/01/25 Nitroglycerin (NTROSTAT SUBLINGUAL) 0.4 Mg Sl, 0.4 MG SL PRN, TAB *MAY REPEAT EVERY 5 MINUTES X 3 TOTAL IF NO RELIEF, INITIATE ANALGESIC THERAPY. NOTIFY PHYSICIAN *Do not crush. 08/01/25 Aspirin (Aspir-81) 81 Mg Tab, 1 TAB PO DAILY, #30 TAB 5 Refills 08/01/25 Hydrocodone-Acetaminophen (Hydrocodone Bitartrate/AC 5-325 mg) 1 Tab Tab, 1 TAB PO Q12HR PRN for 15 Days, #30 11/10/24 Guaifenesin (Chest Congestion Relief) 100 Mg/5 Ml Syp, PO 01/16/24 Atorvastatin Calcium (ATORVASTATIN CALCIUM) 40 Mg Tab, 1 TAB PO DAILY 01/16/24 Prednisone (Prednisone) 20 Mg Tab, 1 TAB PO BID 01/16/24 Tiotropium [place] Monohydrate (Spiriva Respimat) 2.5 Mcg/Act Spr, 2 PUFF INH DAILY 01/15/24 Albuterol Sulfate (Albuterol Sulfate Hfa) 108 Mcg/Act Aer, 2 PUFF INH Q4HR PRN 01/15/24 Benzonatate (Benzonatate) 100 Mg Cap, 1 CAP PO TID PRN for FOR COUGH, #30 CAP 01/15/24 Sumatriptan Succinate (Imitrex) 50 Mg Tab, 50 MG PO, TAB 07/29/23 Loperamide Hcl (Loperamide Hcl) 2 Mg Cap, 2 MG PO, MG 07/29/23 Pantoprazole Sodium Sesquihydr (Pantoprazole Sodium) 40 Mg Tab, 1 TAB PO DAILY 07/28/23 Apixaban Base (ELIQUIS) 5 Mg Tab, 1 TAB PO BID 07/28/23 Metoprolol Succinate (Metoprolol Succinate Er) 100 Mg Tab, 1 TAB PO DAILY 07/28/23 Lisinopril (Lisinopril) 20 Mg Tab, 1 TAB PO DAILY 07/28/23 Hydrocodone-Acetaminophen (Hydrocodone Bitartrate/AC 5-325 mg) 1 Tab Tab, 1 TAB PO Q12HR PRN 07/28/23 Discontinued Reported Medications Atorvastatin Calcium (Lipitor) 40 Mg Tab, 1 TAB PO DAILY 01/15/24 Discontinued Scripts Azithromycin (Zithromax Z-Luis) 250 Mg Tab, 250 MG PO DAILY for 4 Days, #4 TAB Prov:CARLOS BARON MD 01/21/24 Methylprednisolone (Medrol Dosepak) 4 Mg Luis, 4 MG PO UD, #21 TAB UAD Prov:CARLOS BARON MD 01/21/24 Plan/Recommendation pt is constantly admitted here or [facility] has seen numerous cards was on hospice and all meds stopped now doesnt want it prognosis is poor, pt wants all care start back GDMT and HF treatment GEOFFREY DIAZ Aug 05, 2025 16:45 ALYX PUCKETT MD Aug 06, 2025 13:38
[2025-08-05] MEDS: VALSARTAN 80 MG TAB PO ONE (16:57)
[2025-08-05] MEDS: FUROSEMIDE 40 MG/4 ML VIAL IV ONE (16:58)
[2025-08-05 17:34] LABS: Magnesium 2.0 mg/dL (1.6-2.6); Triglycerides 114.0 mg/dL (< 150)
[2025-08-05 17:36] LABS: Cholesterol 134.0 mg/dL (< 200)
[2025-08-05 17:38] LABS: HDL Cholesterol 36.0 mg/dL (40-59)
[2025-08-05] MEDS: DOXYCYCLINE 100MG/100ML 100 ML IV ONE (18:20)
[2025-08-05 18:40] LABS: COVID19 ANTIGEN SOFIA FIA NEGATIVE (NEGATIVE)
[2025-08-05] MEDS: LEVALBUTEROL HCL 1.25 MG/3 ML NEB NEB SCH (19:11)
[2025-08-05] MEDS: ENOXAPARIN SOD 100 MG/1 ML SYRINGE SC SCH (21:23)
[2025-08-05] MEDS: MELATONIN 5 MG TAB PO SCH (21:25)
[2025-08-05 21:32] LABS: INR 1.05 (0.9-1.15); Partial Thromboplastin Time 24.2 SEC (24.5-34.5); Prothrombin Time 11.1 sec (9.3-11.8)
--- NOTE | 2025-08-05 22:46 | DVHINCON2 ---
Date of service: Aug 05, [address] Tao [facility] [place] Reason for Consultation Acute on chronic hypoxic/chronic hypercarbic respiratory failure, pneumonia, COPD exacerbation. History of Present Illness An 84-year-old woman with past medical history of COPD, atrial fibrillation, CHF, hypertension, hyperlipidemia, and chronic renal disease, who presented to ED on 07/30/25 with c/o generalized weakness. Patient stated she had not been feeling well for a few days; nauseated and not sleeping well. She presented to the hospital due to shortness of breath and generalized weakness. Pt stated her symptoms worsened on day of presentation, promoting her to come in. Patient was previously on hospice. She wants to revoke it and states she did not fully understand what it meant to sign up for hospice. She states she would still like to be a full code and receive full treatment. Since being on hospice, her home medications have been stopped. Patient was found to be in atrial fibrillation with RVR on arrival to the ER. Patient was admitted for further care. Pulmonary consultation is requested for evaluation and management due to acute on chronic hypoxic/chronic hypercarbic respiratory failure, pneumonia and COPD exacerbation. Review of Systems: 14-point review of systems negative unless otherwise noted above. Past Medical History: COPD, atrial fibrillation, CHF, hypertension, hyperlipidemia, and chronic renal disease Past Surgical History: Cholecystectomy, Hysterectomy Medications: Reviewed. Allergies: Codeine Caffeine Family History: No family history of premature CAD. No family history of lung disorders. Social History: Nonsmoker. Rare alcohol use. No illicit drug use. Family History: Cerebrovascular accident (CVA) G8 FATHER Hypertension G8 FATHER Allergies: Coded Allergies: Caffeine (Verified Allergy, Severe, DIARRHEA, HEADACHES, STOMACH PAINS, 05/01/12) Uncoded Allergies: CODEINE (Allergy, Unknown, 07/30/25) Home Meds Active Scripts Amiodarone Hcl (Amiodarone Hcl) 200 Mg Tab, 200 MG PO BID, #60 TAB Prov:KWAKU BERRY MD 08/07/25 Prednisone (Prednisone) 20 Mg Tab, 20 MG PO DAILY, #10 MG Prov:KWAKU BERRY MD 08/07/25 Spironolactone (Aldactone) 25 Mg Tab, 1 TAB PO DAILY, #30 TAB 5 Refills Prov:KWAKU BERRY MD 08/07/25 Empagliflozin (Jardiance) 10 Mg Tab, 10 MG PO DAILY, #30 TAB Prov:KWAKU BERRY MD 08/07/25 Doxycycline (Monohydrate) (Doxycycline) 100 Mg Cap, 100 MG PO BID, #20 CAP Prov:KWAKU BERRY MD 08/07/25 Apixaban Base (ELIQUIS) 2.5 Mg Tab, 2.5 MG PO BID for 30 Days, #60 TAB 5 Refills Prov:CARLOS BARON MD 11/16/24 Empagliflozin (Jardiance) 10 Mg Tab, 10 MG PO DAILY for 30 Days, #30 TAB 5 Refills Prov:CARLOS BARON MD 11/16/24 Famotidine (PEPCID TABLET) 20 Mg Tb, 1 TAB PO BID, #60 TAB 0 Refills Prov:PERCY HAYES MD 11/12/24 Lisinopril (Lisinopril) 5 Mg Tab, 5 MG PO DAILY for 30 Days, #30 TAB 0 Refills Prov:PERCY HAYES MD 11/12/24 Furosemide (Furosemide) 20 Mg Tab, 20 MG PO DAILY for 30 Days, #30 TAB 0 Refills Prov:PERCY HAYES MD 11/12/24 Carvedilol (COREG) 3.125 Mg Tab, 3.125 MG PO BID for 30 Days, #60 TAB 0 Refills Prov:PERCY HAYES MD 11/12/24 Atorvastatin Calcium (ATORVASTATIN CALCIUM) 20 Mg Tab, 20 MG PO HS for 30 Days, #30 TAB 0 Refills Prov:PERCY HAYES MD 11/12/24 Albuterol Sulfate (Albuterol Sulfate Hfa) 108 Mcg/Act Aer, 216 MCG IN QIDP for 30 Days, #18 GRAMS Prov:CARLOS BARON MD 01/21/24 Potassium Chloride (Potassium Chloride ER) 10 Meq Tab, 1 TAB PO DAILY, #30 TAB Prov:JOJO ESPINAL MD 07/30/23 Ipratropium-Albuterol (Ipratropium [place]/Albut) 1 Delmis Delmis, 1 DELMIS IN BID, #30 ML Prov:JOJO ESPINAL MD 07/30/23 Furosemide (Furosemide) 40 Mg Tab, 1 TAB PO QAM, #30 TAB Prov:JOJO ESPINAL MD 07/30/23 Reported Medications Ondansetron HCl (Ondansetron) 4 Mg Tab, 4 MG PO, TAB 08/01/25 Nitroglycerin (NTROSTAT SUBLINGUAL) 0.4 Mg Sl, 0.4 MG SL PRN, TAB *MAY REPEAT EVERY 5 MINUTES X 3 TOTAL IF NO RELIEF, INITIATE ANALGESIC THERAPY. NOTIFY PHYSICIAN *Do not crush. 08/01/25 Aspirin (Aspir-81) 81 Mg Tab, 1 TAB PO DAILY, #30 TAB 5 Refills 08/01/25 Hydrocodone-Acetaminophen (Hydrocodone Bitartrate/AC 5-325 mg) 1 Tab Tab, 1 TAB PO Q12HR PRN for 15 Days, #30 11/10/24 Guaifenesin (Chest Congestion Relief) 100 Mg/5 Ml Syp, PO 01/16/24 Atorvastatin Calcium (ATORVASTATIN CALCIUM) 40 Mg Tab, 1 TAB PO DAILY 01/16/24 Prednisone (Prednisone) 20 Mg Tab, 1 TAB PO BID 01/16/24 Tiotropium [place] Monohydrate (Spiriva Respimat) 2.5 Mcg/Act Spr, 2 PUFF INH DAILY 01/15/24 Albuterol Sulfate (Albuterol Sulfate Hfa) 108 Mcg/Act Aer, 2 PUFF INH Q4HR PRN 01/15/24 Benzonatate (Benzonatate) 100 Mg Cap, 1 CAP PO TID PRN for FOR COUGH, #30 CAP 01/15/24 Sumatriptan Succinate (Imitrex) 50 Mg Tab, 50 MG PO, TAB 07/29/23 Loperamide Hcl (Loperamide Hcl) 2 Mg Cap, 2 MG PO, MG 07/29/23 Pantoprazole Sodium Sesquihydr (Pantoprazole Sodium) 40 Mg Tab, 1 TAB PO DAILY 07/28/23 Apixaban Base (ELIQUIS) 5 Mg Tab, 1 TAB PO BID 07/28/23 Metoprolol Succinate (Metoprolol Succinate Er) 100 Mg Tab, 1 TAB PO DAILY 07/28/23 Lisinopril (Lisinopril) 20 Mg Tab, 1 TAB PO DAILY 07/28/23 Hydrocodone-Acetaminophen (Hydrocodone Bitartrate/AC 5-325 mg) 1 Tab Tab, 1 TAB PO Q12HR PRN 07/28/23 Current Medications Current Medications Medications (Trade) Dose Ordered Sig/Radha Route PRN Reason Start Time Stop Time Status Last Admin Methylprednisolone Sodium Succinate (Solu Medrol) 40 mg DAILY IV 08/05/25 10:00 08/10/25 09:59 08/05/25 09:06 Furosemide (Lasix Injection) 40 mg DAILY IV 08/05/25 10:00 08/08/25 09:59 08/05/25 09:05 Empaglifozin (Jardiance) 10 mg DAILY PO 08/06/25 10:00 Valsartan (Diovan) 80 mg DAILY PO 08/06/25 10:00 Melatonin (Melatonin) 5 mg HS PRN PO FOR INSOMNIA 08/05/25 16:30 UNV Melatonin (Melatonin) 5 mg HS PO 08/05/25 22:00 08/05/25 21:25 Enoxaparin Sodium (Lovenox) 90 mg Q12HR SC 08/05/25 22:00 08/05/25 21:23 Levalbuterol HCl (Xopenex Medneb) 0.625 mg Q6HR NEB 08/05/25 18:00 08/05/25 19:11 Azithromycin 250 ml @ 125 mls/hr DAILY IV 08/06/25 10:00 08/05/25 17:17 DC Doxycycline Hyclate 100 ml @ 50 mls/hr Q12H IV 08/06/25 06:00 Vital Signs Vital Signs Date Time Temp Pulse Resp B/P (MAP) Pulse Ox O2 Delivery O2 Flow Rate FiO2 08/05/25 21:24 98 104/66 08/05/25 19:11 96 Nasal Cannula 2.0 08/05/25 19:11 18 08/05/25 19:11 28 08/05/25 16:30 98.4 98.4 Physical Exam Gen.: Patient lying in bed in no apparent distress. On supplemental oxygen. Head: Normocephalic, atraumatic. Eyes: EOMI/PERRLA. Ears: Normal hearing. Normal anatomy. Neck/trachea: Trachea midline, supple. Nose: Normal external anatomy. Mouth: Moist mucous membranes. Chest: Decreased air entry bilaterally. No wheezing or rhonchi. Cardiovascular: Positive S1, positive S2. Regular rate and rhythm. Abdomen: Positive bowel sounds in all 4 quadrants. Soft, non-tender, non- distended. : Deferred. Rectal: Deferred. Skin: Warm, dry. Intact. Extremities: 2+ radial pulses bilaterally. No lower extremity edema. Neuro: Awake, alert, oriented x3. No gross motor or sensory deficits. Cranial nerves II through XII intact. Gait not assessed. Labs/Diagnostic Data Labs Test 08/05/25 21:04 08/05/25 16:06 08/05/25 05:32 08/05/25 03:30 Range/Units Prothrombin Time 11.1 9.3-11.8 sec Prothrombin Time INR 1.05 0.9-1.15 Activated Partial Thromboplast Time 24.2 L 24.5-34.5 SEC SARS-CoV-2 Antigen (Rapid) Negative NEGATIVE White Blood Count 11.1 #H 4.4-10.8 10^3/uL Red Blood Count 3.23 L 4.0-5.20 10^6/uL Hemoglobin 9.7 L 12.2-16.2 g/dL Hematocrit 29.9 L 36.0-46.0 % Mean Corpuscular Volume 92.6 80.0-100.0 fL Mean Corpuscular Hemoglobin 29.9 28.0-32.0 pg Mean Corpuscular Hemoglobin Concent 32.3 32.0-36.0 g/dL Red Cell Distribution Width 17.6 H 11.8-14.3 % Platelet Count 392 140-450 10^3/uL Mean Platelet Volume 7.8 6.9-10.8 fL Neutrophils (%) (Auto) 78.6 37.0-80.0 % Lymphocytes (%) (Auto) 11.3 10.0-50.0 % Monocytes (%) (Auto) 8.4 0.0-12.0 % Eosinophils (%) (Auto) 0.8 0.0-7.0 % Basophils (%) (Auto) 0.9 0.0-2.0 % Neutrophils # (Auto) 8.7 H 1.6-8.6 10 ^3/uL Lymphocytes # (Auto) 1.3 0.4-5.4 10 ^3/uL Monocytes # (Auto) 0.9 0-1.3 10 ^3/uL Eosinophils # (Auto) 0.1 0-0.8 10 ^3/uL Basophils # (Auto) 0.1 0-0.2 10 ^3/uL Nucleated Red Blood Cells 0.1 % Sodium Level 143 136-145 mmol/L Potassium Level 3.8 3.5-5.1 mmol/L Chloride Level 99 98-107 mmol/L Carbon Dioxide Level 36 H 20-31 mmol/L Anion Gap 8 5-15 Blood Urea Nitrogen 19 9-23 mg/dL Creatinine 0.84 0.550-1.02 mg/dL Glomerular Filtration Rate Calc 68 >90 mL/min BUN/Creatinine Ratio 22.6 H 10.0-20.0 Serum Glucose 108 H 74-106 mg/dL Hemoglobin A1c 5.2 <5.7 % A1C Calcium Level 8.5 L 8.7-10.4 mg/dL Phosphorus Level 2.6 2.4-5.1 mg/dL Magnesium Level 2.0 1.6-2.6 mg/dL Triglycerides Level 114 < 150 mg/dL Cholesterol Level 134 < 200 mg/dL LDL Cholesterol 86 < 100 mg/dL HDL Cholesterol 36 L 40-59 mg/dL Vitamin D 25-Hydroxy 74.0 30.0-100 ng/mL Thyroid Stimulating Hormone (TSH) 1.27 0.55-4.78 uIU/mL Blood Gas Specimen Type Arterial Blood Gas Sample Site Right radial Blood Gas Patient Temperature 37.0 Arterial Blood Date Drawn [id number] Arterial Blood pH 7.492 H 7.350-7.450 Arterial Blood Partial Pressure CO2 47.6 H 32.0-45.0 mmHg Arterial Blood Partial Pressure O2 78.7 L 83.0-108.0 mmHg Arterial Blood HCO3 35.6 H 21.0-28.0 mmol/L Arterial Blood Oxygen Saturation 95.2 94.0-98.0 % Arterial Blood Base Excess 11.0 H -2.0-3.0 mmol/L Arterial Blood Oxyhemoglobin 94.3 94.0-98.0 % Arterial Blood Carboxyhemoglobin 0.5 0.5-1.5 % Arterial Blood Methemoglobin 0.4 0.0-1.5 % Theodore Test Yes Blood Gas Total Hemoglobin 10.40 L 12.0-16.0 g/dL Blood Gas Set Respiration Rate 14.0 Blood Gas Modality Mask - bipap FiO2 % 36.0 Blood Gas EPAP 5 Blood Gas IPAP 10 Test 07/31/25 07:38 07/30/25 14:04 07/30/25 12:24 Range/Units Total Bilirubin 0.6 0.2-1.0 mg/dL Aspartate Amino Transferase (AST) 30 13-40 U/L Alanine Aminotransferase (ALT) 17 7-40 U/L Alkaline Phosphatase 75 46-116 U/L B-Type Natriuretic Peptide 1923.93 0-100 pg/mL Total Protein 5.1 L 5.7-8.2 g/dL Albumin 2.8 L 3.2-4.8 g/dL Urine Color Yellow Yellow Urine Clarity Clear Clear Urine pH 6.0 5.0-9.0 Urine Specific [place] 1.024 1.001-1.035 Urine Protein Trace H Negative Urine Ketones Negative Negative Urine Blood Negative Negative /uL Urine Nitrite Negative Negative Urine Bilirubin Negative Negative Urine Urobilinogen Normal Negative mg/dL Urine Leukocyte Esterase Negative Negative /uL Urine RBC 1 0 - 4 /hpf Urine Microscopic WBC 3 0-5 /HPF Urine Squamous Epithelial Cells Few <5 /hpf Urine Bacteria None seen None Seen /hpf Urine Mucus Few None Seen Urine Glucose Normal Normal mg/dL Troponin I High Sensitivity 30 </=34 ng/L Microbiology Date/Time Source Procedure Growth Status 07/31/25 15:16 Blood Blood Culture - Final NO GROWTH AFTER 5 DAYS OF INCUBATION. Complete 07/30/25 14:04 Voided Urine Urine Culture - Final Complete Assessment Impression: Acute on chronic hypoxic respiratory failure Chronic hypercarbic respiratory failure Dependence on supplemental oxygen Pleural effusion Atelectasis Pneumonia, likely GNR COPD exacerbation Pulmonary hypertension, RVSP 45 mmHg Obesity BMI 33.9 Plan: Supplemental oxygen Titrate to keep O2 sats above 92%. CXR reviewed, shows bilateral pleural effusions, atelectasis, and pulmonary vascular congestion. Continue diuresis with Lasix Monitor renal function. Monitor electrolytes. Supplement as necessary. Monitor ins and outs Repeat chest x-ray in 48 hours to assess for interval changes. Continue bronchodilators. Continue antibiotics IV steroids Incentive spirometry On amiodarone PO, therapeutic Lovenox Cardiology recs appreciated DVT prophylaxis. Prognosis: Poor given patient's multiple co-morbidities. Rest of plan per hospitalist and other consultants. Thank you, Dr. Burger, for allowing me to participate in this patient's care. Further recommendations will depend on the patient's clinical course. Please do not hesitate to contact me if you have any questions or concerns. This medical document was created using an electronic medical record system with Dragon computerized dictation system. Although these documentations are being carefully reviewed, there may still be some phonetic and typographical changes. The errors are purely typographical, due to imperfection on the software program, and do not reflect any compromise in the patient's medical care. Plan discussed with: Other (RN/MD) Visit Coding Pulmonary Billing Provider: FRANCISCO VILLAGRAN MD Date of Service if different f: Aug 05, 2025 Common Visit Codes: [id number] INP/OBS CARE (HIGH) FRANCISCO VILLAGRAN MD Aug 05, 2025 22:46
[2025-08-06] VITALS (16 sets, daily range): BP systolic 90–114; BP diastolic 49–76; PULSE 60–98; RESP 16–19; TEMP 97.6–98.8; O2SAT 95–100
[2025-08-06] MEDS: DOXYCYCLINE 100MG/100ML 100 ML IV SCH (05:20)
[2025-08-06 07:59] LABS: Hematocrit 28.7 % (36.0-46.0); Hemoglobin 9.4 g/dL (12.2-16.2); Mean Corpuscular Hemoglobin 29.7 pg (28.0-32.0); Mean Corpuscular Volume 91.0 fL (80.0-100.0); Nucleated Red Blood Cells % 0.0 %
[2025-08-06 08:25] LABS: Alanine Aminotransferase 13 U/L (7-40); Alkaline Phosphatase 66 U/L (46-116); Anion Gap 8 (5-15); BUN/Creatinine Ratio 18.6 (10.0-20.0); Blood Urea Nitrogen 16 mg/dL (9-23); Sodium 143 mmol/L (136-145)
[2025-08-06 08:26] LABS: Bilirubin, Total 0.6 mg/dL (0.2-1.0)
[2025-08-06 08:29] LABS: Albumin 2.9 g/dL (3.2-4.8); Calcium 8.1 mg/dL (8.7-10.4); Carbon Dioxide 37 mmol/L (20-31); Chloride 98 mmol/L (98-107); Glucose 116 mg/dL (74-106); Potassium 3.1 mmol/L (3.5-5.1); Total Protein 5.3 g/dL (5.7-8.2)
[2025-08-06] MEDS ORDERED: AZITHROMYCIN 500MG/ 250ML 250 ML IV SCH (10:00)
[2025-08-06] MEDS: EMPAGLIFLOZIN 10 MG TAB PO SCH (10:15)
[2025-08-06] MEDS: VALSARTAN 80 MG TAB PO SCH (10:15)
[2025-08-06] MEDS: POTASSIUM CHLORIDE 40 MEQ, LIDOCAINE 1% (LOCAL ANESTH.) 4 ML in SODIUM CHL 0.9% 250 ML IV ONE (12:11)
--- NOTE | 2025-08-06 13:34 | DVHPN2 ---
Reviewed: Care Plan, H&P, Labs, Medications, Previous Orders, Radiology Changes from previous H/P or p: No Changes Eyes: No Pain, No Vision change, No Conjunctivae inflammation, No Eyelid inflammation, No Other, No Redness ENT: No Ear pain, No Ear discharge, No Nose pain, No Nose discharge, No Nose congestion, No Mouth pain, No Mouth swelling, No Throat pain, No Throat swelling, No Other Cardiovascular: No Chest Pain, No Palpitations, No Orthopnea, No Paroxysmal Noc. Dyspnea, No Edema, No Lt Headedness, No Other Respiratory: No Cough, No Dry, No Shortness of breath, No SOB with excertion, No Wheezing, No Hemoptysis, No Pleuritic Pain, No Sputum, No Other Gastrointestinal: No Nausea, No Vomiting, No Abdominal Pain, No Diarrhea, No Constipation, No Melena, No Hematochezia, No Other Genitourinary: No Dysuria, No Frequency, No Incontinence, No Hematuria, No Retention, No Other Musculoskeletal: No other, No neck pain, No shoulder pain, No arm pain, No back pain, No hand pain, No leg pain, No foot pain Skin: No Rash, No Lesions, No Jaundice, No Bruising, No Other Objective Vitals Vital Signs Date Time Temp Pulse Resp B/P (MAP) Pulse Ox O2 Delivery O2 Flow Rate FiO2 08/06/25 12:37 98.3 86 18 90/49 (63) 95 98.3 08/06/25 11:03 Nasal Cannula* 2 28 Intake/Output Intake and Output 08/06/25 07:00 Intake Total 750 ml Output Total 250 ml Balance 500 ml Intake Oral 750 ml Output Urine Total 250 ml # Voids 5 # Bowel Movements 3 General Appearance: Alert, Oriented X3, Cooperative, mild distress HEENT: Atraumatic, PERRLA, EOMI, Mucous membr. moist/pink Lungs: Other (rales rt lower lobe) Cardiovascular: Regular rate, Normal S1, Normal S2, No murmurs Abdomen: Normal bowel sounds, Soft, No tenderness, No hepatospenomegaly Medications Current Medications Medications Dose Ordered Sig/Radha Route Start Time Stop Time Status Last Admin Dose Admin Acetaminophen/ Hydrocodone Bitart 1 tab Q4HP PRN PO 07/30/25 15:45 08/05/25 16:57 1 TAB Acetaminophen 650 mg Q6HP PRN PO 07/30/25 15:45 07/30/25 22:52 650 MG Carvedilol 3.125 mg BID PO 07/30/25 22:00 08/06/25 10:14 3.125 MG Atorvastatin Calcium 40 mg HS PO 07/30/25 22:00 08/05/25 21:24 40 MG Ceftriaxone Sodium 50 ml @ 100 mls/hr DAILY@09 IV 08/01/25 09:00 08/06/25 10:13 100 MLS/HR Amiodarone HCl 200 mg Q12HR PO 08/02/25 22:00 08/06/25 10:15 200 MG Polyethylene Glycol 17 gm DAILY PO 08/03/25 10:00 08/03/25 10:03 17 GM Methylprednisolone Sodium Succinate 40 mg DAILY IV 08/05/25 10:00 08/10/25 09:59 08/06/25 10:16 40 MG Furosemide 40 mg DAILY IV 08/05/25 10:00 08/08/25 09:59 08/06/25 10:14 40 MG Empaglifozin 10 mg DAILY PO 08/06/25 10:00 08/06/25 10:15 10 MG Valsartan 80 mg DAILY PO 08/06/25 10:00 08/06/25 10:15 80 MG Melatonin 5 mg HS PRN PO 08/05/25 16:30 UNV Melatonin 5 mg HS PO 08/05/25 22:00 08/05/25 21:25 5 MG Levalbuterol HCl 0.625 mg Q6HR NEB 08/05/25 18:00 08/06/25 11:03 0.625 MG Doxycycline Hyclate 100 ml @ 50 mls/hr Q12H IV 08/06/25 06:00 08/06/25 05:20 50 MLS/HR Enoxaparin Sodium 80 mg Q12HR SC 08/06/25 22:00 Laboratory Results Laboratory Tests 08/06/25 07:29 Chemistry Test 08/06/25 07:29 Albumin 2.9 g/dL (3.2-4.8) L Calcium Level 8.1 mg/dL (8.7-10.4) L Total Protein 5.3 g/dL (5.7-8.2) L Coagulation Test 08/05/25 21:04 Prothrombin Time 11.1 sec (9.3-11.8) Prothrombin Time INR 1.05 (0.9-1.15) Activated Partial Thromboplast Time 24.2 SEC (24.5-34.5) L LFT Test 08/06/25 07:29 Alanine Aminotransferase (ALT) 13 U/L (7-40) Alkaline Phosphatase 66 U/L (46-116) Aspartate Amino Transferase (AST) 19 U/L (13-40) Total Bilirubin 0.6 mg/dL (0.2-1.0) Urinalysis Test 07/30/25 14:04 Urine Color Yellow (Yellow) Urine Clarity Clear (Clear) Urine pH 6.0 (5.0-9.0) Urine Specific [place] 1.024 (1.001-1.035) Urine Protein Trace (Negative) H Urine Ketones Negative (Negative) Urine Blood Negative /uL (Negative) Urine Nitrite Negative (Negative) Urine Bilirubin Negative (Negative) Urine Urobilinogen Normal mg/dL (Negative) Urine Leukocyte Esterase Negative /uL (Negative) Urine RBC 1 /hpf (0 - 4) Urine Microscopic WBC 3 /HPF (0-5) Urine Squamous Epithelial Cells Few /hpf (<5) Urine Bacteria None seen /hpf (None Seen) Urine Mucus Few (None Seen) Urine Glucose Normal mg/dL (Normal) Microbiology Microbiology Date/Time Source Procedure Growth Status 07/31/25 15:16 Blood Blood Culture - Final NO GROWTH AFTER 5 DAYS OF INCUBATION. Complete 07/30/25 14:04 Voided Urine Urine Culture - Final Complete Labs and/or images reviewed: Labs reviewed by me, Image(s) reviewed by me Assessment/Plan Assessment/Plan Covering for Dr. Burger acute on chronic hypoxic RF PNA gp vs gn: Rocephin pafib not on AC 2/2 recurrent bleed, restarted this admission: Amiodarone: Lovenox COPD group E bedbound sepsis VICKY VMN on CKD acute on chronic systolic HF HFrEF 30% mod MS MR s/p mitraclip mod pHTN Obesity Continue Current management Time spent 70 minutes Advanced care planning time 20 minutes Patient is full code Plan discussed with: Patient Date of Service: Aug 06, 2025 Billing Provider: KWAKU BERRY MD Common Visit Codes: [id number] CARE 30-74 MIN KWAKU BERRY MD Aug 06, 2025 13:33
--- NOTE | 2025-08-06 16:34 | DVHPNRES ---
Progress Note Date Seen: Aug 06, 2025 Resident Creating Document: DC BALTAZAR RESIDENT Has the PT tested + for MRSA If YES, has PT been informed?: No Medical Necessity Reason Pt with a Central, PICC or Fol: No Subjective Review of Systems Delmi Cornejo is a 84-year-old female patient who presents to ED with chief complaint of dyspnea, stabbing left-sided chest pain worsens with breathing, which started one week ago after patient initiated hospice and was off of her GDM T for her heart failure, associated with decrease in appetite and unintentional weight loss (patient did not measure her weight). Patient reports being hospitalized three weeks ago in [facility] due to probable AR, having to be transferred to [facility] where she stress test which was positive for ischemia and posterior left heart catheterization which showed no significant coronary obstruction. Denies any other associated symptoms. Patient does not want to be on hospice, she wants everything done even implantable defibrillator. Cardiology was consulted to guide her treatment. Past medical history: Hypertension, dyslipidemia, ischemic cardiomyopathy, coronary artery disease with multiple coronary angiographies last stent placed in in October 2024 to LAD, congestive heart failure (HFrEF previously 18% currently 30-35%), history of mitral regurgitation status post mitral clip placement five years ago, permanent atrial fibrillation/atrial flutter (chads Vasc 6) on apixaban, lupus, Ethan's thyroiditis, COPD/asthma on home oxygen with 4 L/min, IBS, chronic kidney disease stage 3, PID replacement of stents two years ago. Surgical history: Appendectomy, hysterectomy, cholecystectomy, mitral clip five years ago Walker, multiple coronary angiographies last one three weeks ago with no stents placed, peripheral angiography with stent placement two years ago Family history: Daughters have lupus, COPD, Ethan's thyroiditis, CKD. Father, and grandfather of stroke Social history: Lives in [facility] with daughter (DERICK is Tonja, the daughter that is her neighbor). Denies current tobacco, alcohol and other drug abuse Allergies: Caffeine (she is not allergic to codeine) Home medication: Albuterol, apixaban, aspirin, atorvastatin, carvedilol, empagliflozin, famotidine, furosemide, guaifenesin, [place], ipratropium, lisinopril, amitriptyline, Zofran Patient seen and examined at bedside. Currently complains of dyspnea, nasal cannula at 2 L/min, soft BPs Objective vital signs Vital Sign Date Time Temp Pulse Resp B/P (MAP) Pulse Ox O2 Delivery O2 Flow Rate FiO2 08/06/25 12:37 98.3 86 18 90/49 (63) 95 98.3 08/06/25 11:03 Nasal Cannula* 2 28 Total Intake and Output 08/05/25 08/05/25 08/06/25 14:59 22:59 06:59 Intake Total 450 ml 300 ml Output Total 250 ml Balance 450 ml 50 ml medications Current Medications Medications Dose Ordered Sig/Radha Route Start Time Stop Time Status Last Admin Dose Admin Acetaminophen/ Hydrocodone Bitart 1 tab Q4HP PRN PO 07/30/25 15:45 08/05/25 16:57 1 TAB Acetaminophen 650 mg Q6HP PRN PO 07/30/25 15:45 07/30/25 22:52 650 MG Carvedilol 3.125 mg BID PO 07/30/25 22:00 08/06/25 10:14 3.125 MG Atorvastatin Calcium 40 mg HS PO 07/30/25 22:00 08/05/25 21:24 40 MG Ceftriaxone Sodium 50 ml @ 100 mls/hr DAILY@09 IV 08/01/25 09:00 08/06/25 10:13 100 MLS/HR Amiodarone HCl 200 mg Q12HR PO 08/02/25 22:00 08/06/25 10:15 200 MG Polyethylene Glycol 17 gm DAILY PO 08/03/25 10:00 08/03/25 10:03 17 GM Methylprednisolone Sodium Succinate 40 mg DAILY IV 08/05/25 10:00 08/10/25 09:59 08/06/25 10:16 40 MG Empaglifozin 10 mg DAILY PO 08/06/25 10:00 08/06/25 10:15 10 MG Valsartan 80 mg DAILY PO 08/06/25 10:00 08/06/25 10:15 80 MG Melatonin 5 mg HS PRN PO 08/05/25 16:30 UNV Melatonin 5 mg HS PO 08/05/25 22:00 08/05/25 21:25 5 MG Levalbuterol HCl 0.625 mg Q6HR NEB 08/05/25 18:00 08/06/25 11:03 0.625 MG Doxycycline Hyclate 100 ml @ 50 mls/hr Q12H IV 08/06/25 06:00 08/06/25 05:20 50 MLS/HR Enoxaparin Sodium 80 mg Q12HR SC 08/06/25 22:00 Furosemide 40 mg BID IV 08/06/25 22:00 08/09/25 21:59 UNV Examination Patient lying in bed, in no acute distress General: Lucid, afebrile, mucosae are moist Cardiovascular: Normal S1 and S2. Holosystolic murmur best heard in apex that radiates towards axilla intensity 3/6. No gallops or rubs Respiratory: Normal ventilation mechanics. Bibasilar crackles, rest of lung auscultation is clear Abdomen: Soft, nontender, no organomegaly, normal bowel sounds MSK/skin: Mobilizes 4 limbs. Skin is dry and warm, lymphedema in both bilateral limbs Neurological: Oriented in 3 spheres. No motor no sensitive deficits. Pupils are isocoric and reactive laboratory and microbiology Laboratory Tests 08/06/25 13:39 08/06/25 07:29 Test 08/06/25 07:29 Range/Units Serum Glucose 116 H 74-106 mg/dL Microbiology Date/Time Source Procedure Growth Status 07/31/25 15:16 Blood Blood Culture - Final NO GROWTH AFTER 5 DAYS OF INCUBATION. Complete 07/30/25 14:04 Voided Urine Urine Culture - Final Complete Problem List/Assessment/Plan Problem List/Assessment/Plan Acute on chronic hypoxic respiratory failure Acute on chronic systolic congestive heart failure (HFrEF, LVEF 30-35%) Moderate mitral stenosis and severe tricuspid regurgitation Moderate pulmonary hypertension Permanent atrial fibrillation/flutter (chads Vasc 6)-secondary hypercoagulability state Ischemic cardiomyopathy with history of AR status post stent placement in 10/2024 Ruled out acute coronary syndrome Questionable community-acquired pneumonia Hospice revoked Obesity Hypertension Dyslipidemia COPD/asthma-on home oxygen at 4 L/min Ethan thyroiditis Lupus IBS CKD stage 3 Peripheral artery disease status post stent placement Plan/Recommendation EKG shows atrial flutter with LBBB (on previous EKGs), troponin negative in patient presents with noncardiac pain. Ruled out acute coronary syndrome Patient has been off of her GDM T due to hospice status for one week. Patient has acute on chronic congestive heart failure. Currently on IV diuretics Indicate strict I&Os Echocardiogram shows LVEF 30-35%, moderate mitral stenosis, mitral clip and mitral valve, severe tricuspid regurgitation, severe biatrial enlargement, moderate pulmonary hypertension. Trying to optimize GDM T. Currently on carvedilol, empagliflozin and valsartan. Spironolactone added K+ replaced Community-acquired pneumonia rest of baseline disease management per primary team. Goals of care discussed with patient for over 18 minutes: Full code status Discussed plan with Dr. Puckett, patient, family and nurses: Patient currently is on telemetry status. Patient does not want to be comfort care, she wants all procedures deeply for possible done. She may benefit from PROGRAM CLINICIAN-D with AV ablation eventually once she has stabilized and on GDM T for at least three months. Currently patient on management for her acute on chronic congestive heart failure, continue with IV furosemide try to optimize GDM T. patient has poor prognosis. Plan discussed with: Patient, Other (rn) My Orders My Orders Orders - DC BALTAZAR Procedure Category Date Status Time Furosemide Injection PHA 08/06/25 Logged (Lasix Injection) 22:00 Potassium Er Tablet PHA 08/06/25 Logged (Klor-Con Tablet) 16:30 Spironolactone PHA 08/06/25 Logged (Aldactone) 16:30 Spironolactone PHA 08/07/25 Transmitted (Aldactone) 10:00 Dietary Evaluation Review Comments: Monitor PO intake, lab values, weight trend, and I/O Expected Outcomes/Goals: Intake to meet >75% estimated needs Fu 3-5 days Visit Coding Cardiology RES Date of Service: Aug 06, 2025 Billing Provider: ALYX PUCKETT MD Cardiology Common Codes: [id number] CARE 30-74 MIN, NOT BILLABLE DC BALTAZAR Aug 06, 2025 16:34 ALYX PUCKETT MD Aug 07, 2025 14:46
[2025-08-06] MEDS: SPIRONOLACTONE 25 MG TAB PO ONE (18:16)
[2025-08-06] MEDS: POTASSIUM CHL 20 Meq TABLET PO ONE (18:18)
[2025-08-06] MEDS: ENOXAPARIN SOD 80 MG/0.8ML SYRINGE SC SCH (21:17)
[2025-08-06] MEDS: FUROSEMIDE 40 MG/4 ML VIAL IV SCH (21:18)
--- NOTE | 2025-08-06 22:47 | DVHPN2 ---
[facility] DOS: 08/06/2025 Patient seen and examined at bedside. Remains on supplemental oxygen Overnight events reviewed. Reviewed: Care Plan, H&P, Labs, Medications, Previous Orders, Radiology Changes from previous H/P or p: No Changes Eyes: No Pain, No Vision change, No Conjunctivae inflammation, No Eyelid inflammation, No Other, No Redness ENT: No Ear pain, No Ear discharge, No Nose pain, No Nose discharge, No Nose congestion, No Mouth pain, No Mouth swelling, No Throat pain, No Throat swelling, No Other Cardiovascular: No Chest Pain, No Palpitations, No Orthopnea, No Paroxysmal Noc. Dyspnea, No Edema, No Lt Headedness, No Other Respiratory: No Cough, No Dry, No Shortness of breath, No SOB with excertion, No Wheezing, No Hemoptysis, No Pleuritic Pain, No Sputum, No Other Gastrointestinal: No Nausea, No Vomiting, No Abdominal Pain, No Diarrhea, No Constipation, No Melena, No Hematochezia, No Other Genitourinary: No Dysuria, No Frequency, No Incontinence, No Hematuria, No Retention, No Other Musculoskeletal: No other, No neck pain, No shoulder pain, No arm pain, No back pain, No hand pain, No leg pain, No foot pain Skin: No Rash, No Lesions, No Jaundice, No Bruising, No Other Objective Vitals Vital Signs Date Time Temp Pulse Resp B/P (MAP) Pulse Ox O2 Delivery O2 Flow Rate FiO2 08/06/25 21:18 114/76 08/06/25 21:17 80 08/06/25 21:00 98.2 19 97 98.2 08/06/25 11:03 Nasal Cannula* 2 28 Intake/Output Intake and Output 08/06/25 06:59 Intake Total 750 ml Output Total 250 ml Balance 500 ml Intake Oral 750 ml Output Urine Total 250 ml # Voids 5 # Bowel Movements 3 General Appearance: Alert, Oriented X3, Cooperative, No acute distress HEENT: Atraumatic, PERRLA, EOMI, Mucous membr. moist/pink Lungs: Other (rales rt lower lobe) Cardiovascular: Regular rate, Normal S1, Normal S2, No murmurs Abdomen: Normal bowel sounds, Soft, No tenderness, No hepatospenomegaly Medications Current Medications Medications Dose Ordered Sig/Radha Route Start Time Stop Time Status Last Admin Dose Admin Acetaminophen/ Hydrocodone Bitart 1 tab Q4HP PRN PO 07/30/25 15:45 08/06/25 21:16 1 TAB Acetaminophen 650 mg Q6HP PRN PO 07/30/25 15:45 08/06/25 17:03 650 MG Carvedilol 3.125 mg BID PO 07/30/25 22:00 08/06/25 21:17 3.125 MG Atorvastatin Calcium 40 mg HS PO 07/30/25 22:00 08/06/25 21:15 40 MG Ceftriaxone Sodium 50 ml @ 100 mls/hr DAILY@09 IV 08/01/25 09:00 08/06/25 10:13 100 MLS/HR Amiodarone HCl 200 mg Q12HR PO 08/02/25 22:00 08/06/25 21:15 200 MG Polyethylene Glycol 17 gm DAILY PO 08/03/25 10:00 08/03/25 10:03 17 GM Methylprednisolone Sodium Succinate 40 mg DAILY IV 08/05/25 10:00 08/10/25 09:59 08/06/25 10:16 40 MG Empaglifozin 10 mg DAILY PO 08/06/25 10:00 08/06/25 10:15 10 MG Valsartan 80 mg DAILY PO 08/06/25 10:00 08/06/25 10:15 80 MG Melatonin 5 mg HS PRN PO 08/05/25 16:30 UNV Melatonin 5 mg HS PO 08/05/25 22:00 08/06/25 21:15 5 MG Levalbuterol HCl 0.625 mg Q6HR NEB 08/05/25 18:00 08/06/25 19:53 0.625 MG Doxycycline Hyclate 100 ml @ 50 mls/hr Q12H IV 08/06/25 06:00 08/06/25 18:16 50 MLS/HR Enoxaparin Sodium 80 mg Q12HR SC 08/06/25 22:00 08/06/25 21:17 80 MG Furosemide 40 mg BID IV 08/06/25 22:00 08/09/25 21:59 08/06/25 21:18 40 MG Spironolactone 50 mg DAILY PO 08/07/25 10:00 Laboratory Results Laboratory Tests 08/06/25 07:29 08/06/25 13:39 Chemistry Test 08/06/25 07:29 Albumin 2.9 g/dL (3.2-4.8) L Calcium Level 8.1 mg/dL (8.7-10.4) L Total Protein 5.3 g/dL (5.7-8.2) L LFT Test 08/06/25 07:29 Alanine Aminotransferase (ALT) 13 U/L (7-40) Alkaline Phosphatase 66 U/L (46-116) Aspartate Amino Transferase (AST) 19 U/L (13-40) Total Bilirubin 0.6 mg/dL (0.2-1.0) Urinalysis Test 07/30/25 14:04 Urine Color Yellow (Yellow) Urine Clarity Clear (Clear) Urine pH 6.0 (5.0-9.0) Urine Specific [place] 1.024 (1.001-1.035) Urine Protein Trace (Negative) H Urine Ketones Negative (Negative) Urine Blood Negative /uL (Negative) Urine Nitrite Negative (Negative) Urine Bilirubin Negative (Negative) Urine Urobilinogen Normal mg/dL (Negative) Urine Leukocyte Esterase Negative /uL (Negative) Urine RBC 1 /hpf (0 - 4) Urine Microscopic WBC 3 /HPF (0-5) Urine Squamous Epithelial Cells Few /hpf (<5) Urine Bacteria None seen /hpf (None Seen) Urine Mucus Few (None Seen) Urine Glucose Normal mg/dL (Normal) Microbiology Microbiology Date/Time Source Procedure Growth Status 07/31/25 15:16 Blood Blood Culture - Final NO GROWTH AFTER 5 DAYS OF INCUBATION. Complete 07/30/25 14:04 Voided Urine Urine Culture - Final Complete Assessment/Plan Assessment/Plan Impression: Acute on chronic hypoxic respiratory failure Chronic hypercarbic respiratory failure Dependence on supplemental oxygen Pleural effusion Atelectasis Pneumonia, likely GNR COPD exacerbation Pulmonary hypertension, RVSP 45 mmHg Events: Remains on supplemental oxygen, 2 LPM NC Taper O2 as tolerated Continue bronchodilators Continue steroids Continue antibiotics Incentive spirometry Continue diuresis with Lasix Monitor renal function. Monitor electrolytes. Supplement as necessary. Potassium supplementation Echocardiogram reviewed, shows LVEF 30-35%, moderate mitral stenosis, mitral clip and mitral valve, severe tricuspid regurgitation, severe biatrial enlargement, moderate pulmonary hypertension Cardiology recs appreciated Labs and imaging reviewed. Rest of plan as noted below. Plan: Supplemental oxygen Titrate to keep O2 sats above 92%. CXR on 08/05 shows bilateral pleural effusions, atelectasis, and pulmonary vascular congestion. Repeat chest x-ray in 48 hours to assess for interval changes. Continue diuresis with Lasix Monitor renal function. Monitor electrolytes. Supplement as necessary. Monitor ins and outs Continue bronchodilators. Continue antibiotics IV steroids Incentive spirometry On amiodarone PO, therapeutic Lovenox Cardiology recs appreciated DVT prophylaxis. Prognosis: Poor given patient's multiple co-morbidities. Rest of plan per hospitalist and other consultants. Thank you, Dr. Burger, for allowing me to participate in this patient's care. Further recommendations will depend on the patient's clinical course. Please do not hesitate to contact me if you have any questions or concerns. This medical document was created using an electronic medical record system with [employer] dictation system. Although these documentations are being carefully reviewed, there may still be some phonetic and typographical changes. The errors are purely typographical, due to imperfection on the software program, and do not reflect any compromise in the patient's medical care. Plan discussed with: Patient, Other (RN) Visit Coding Pulmonary Billing Provider: FRANCISCO VILLAGRAN MD Date of Service if different f: Aug 06, 2025 Common Visit Codes: [id number] INP/OBS CARE(HIGH) FRANCISCO VILLAGRAN MD Aug 06, 2025 22:47
[2025-08-07] VITALS (16 sets, daily range): BP systolic 85–103; BP diastolic 48–72; PULSE 70–90; RESP 16–99; TEMP 97.1–98.5; O2SAT 96–100
--- NOTE | 2025-08-07 07:31 | DVHPNRES ---
Progress Note Date Seen: Aug 07, 2025 Resident Creating Document: GEOFFREY DIAZ RESIDENT Has the PT tested + for MRSA If YES, has PT been informed?: No Medical Necessity Reason Pt with a Central, PICC or Fol: No Subjective Review of Systems Delmi Cornejo is a 84-year-old female patient who presents to ED with chief complaint of dyspnea, stabbing left-sided chest pain worsens with breathing, which started one week ago after patient initiated hospice and was off of her GDM T for her heart failure, associated with decrease in appetite and unintentional weight loss (patient did not measure her weight). Patient reports being hospitalized three weeks ago in [facility] due to probable [place], having to be transferred to [facility] where she stress test which was positive for ischemia and posterior left heart catheterization which showed no significant coronary obstruction. Denies any other associated symptoms. Patient does not want to be on hospice, she wants everything done even implantable defibrillator. Cardiology was consulted to guide her treatment. Past medical history: Hypertension, dyslipidemia, ischemic cardiomyopathy, coronary artery disease with multiple coronary angiographies last stent placed in in October 2024 to LAD, congestive heart failure (HFrEF previously 18% currently 30-35%), history of mitral regurgitation status post mitral clip placement five years ago, permanent atrial fibrillation/atrial flutter (chads Vasc 6) on apixaban, lupus, Ethan's thyroiditis, COPD/asthma on home oxygen with 4 L/min, IBS, chronic kidney disease stage 3, PID replacement of stents two years ago. Surgical history: Appendectomy, hysterectomy, cholecystectomy, mitral clip five years ago Walker, multiple coronary angiographies last one three weeks ago with no stents placed, peripheral angiography with stent placement two years ago Family history: Daughters have lupus, COPD, Ethan's thyroiditis, CKD. Father, and grandfather of stroke Social history: Lives in [facility] with daughter (DERICK is Tonja, the daughter that is her neighbor). Denies current tobacco, alcohol and other drug abuse Allergies: Caffeine (she is not allergic to codeine) Home medication: Albuterol, apixaban, aspirin, atorvastatin, carvedilol, empagliflozin, famotidine, furosemide, guaifenesin, [place], ipratropium, lisinopril, amitriptyline, Zofran Patient seen and examined at bedside. Currently complains of dyspnea, nasal cannula at 2 L/min, soft BPs Objective vital signs Vital Sign Date Time Temp Pulse Resp B/P (MAP) Pulse Ox O2 Delivery O2 Flow Rate FiO2 08/07/25 06:06 84 18 100 08/07/25 05:56 Nasal Cannula* 2 28 08/07/25 05:00 97.7 99/54 (69) 97.7 Total Intake and Output 08/06/25 08/06/25 08/07/25 15:00 23:00 07:00 Intake Total 200 ml 624 ml 150 ml Output Total 600 ml 450 ml Balance 200 ml 24 ml -300 ml medications Current Medications Medications Dose Ordered Sig/Radha Route Start Time Stop Time Status Last Admin Dose Admin Acetaminophen/ Hydrocodone Bitart 1 tab Q4HP PRN PO 07/30/25 15:45 08/06/25 21:16 1 TAB Acetaminophen 650 mg Q6HP PRN PO 07/30/25 15:45 08/06/25 17:03 650 MG Carvedilol 3.125 mg BID PO 07/30/25 22:00 08/06/25 21:17 3.125 MG Atorvastatin Calcium 40 mg HS PO 07/30/25 22:00 08/06/25 21:15 40 MG Ceftriaxone Sodium 50 ml @ 100 mls/hr DAILY@09 IV 08/01/25 09:00 08/06/25 10:13 100 MLS/HR Amiodarone HCl 200 mg Q12HR PO 08/02/25 22:00 08/06/25 21:15 200 MG Polyethylene Glycol 17 gm DAILY PO 08/03/25 10:00 08/03/25 10:03 17 GM Methylprednisolone Sodium Succinate 40 mg DAILY IV 08/05/25 10:00 08/10/25 09:59 08/06/25 10:16 40 MG Empaglifozin 10 mg DAILY PO 08/06/25 10:00 08/06/25 10:15 10 MG Valsartan 80 mg DAILY PO 08/06/25 10:00 08/06/25 10:15 80 MG Melatonin 5 mg HS PRN PO 08/05/25 16:30 UNV Melatonin 5 mg HS PO 08/05/25 22:00 08/06/25 21:15 5 MG Levalbuterol HCl 0.625 mg Q6HR NEB 08/05/25 18:00 08/07/25 05:56 0.625 MG Doxycycline Hyclate 100 ml @ 50 mls/hr Q12H IV 08/06/25 06:00 08/07/25 05:22 50 MLS/HR Enoxaparin Sodium 80 mg Q12HR SC 08/06/25 22:00 08/06/25 21:17 80 MG Furosemide 40 mg BID IV 08/06/25 22:00 08/09/25 21:59 08/06/25 21:18 40 MG Spironolactone 50 mg DAILY PO 08/07/25 10:00 Examination Patient lying in bed, in no acute distress General: Lucid, afebrile, mucosae are moist Cardiovascular: Normal S1 and S2. Holosystolic murmur best heard in apex that radiates towards axilla intensity 3/6. No gallops or rubs Respiratory: Normal ventilation mechanics. Bibasilar crackles, rest of lung auscultation is clear Abdomen: Soft, nontender, no organomegaly, normal bowel sounds MSK/skin: Mobilizes 4 limbs. Skin is dry and warm, lymphedema in both bilateral limbs Neurological: Oriented in 3 spheres. No motor no sensitive deficits. Pupils are isocoric and reactive laboratory and microbiology Laboratory Tests 08/06/25 13:39 08/06/25 07:29 Test 08/06/25 07:29 Range/Units Serum Glucose 116 H 74-106 mg/dL Microbiology Date/Time Source Procedure Growth Status 07/31/25 15:16 Blood Blood Culture - Final NO GROWTH AFTER 5 DAYS OF INCUBATION. Complete 07/30/25 14:04 Voided Urine Urine Culture - Final Complete Problem List/Assessment/Plan Problem List/Assessment/Plan Assessment Acute on chronic hypoxic respiratory failure Acute on chronic systolic congestive heart failure (HFrEF, LVEF 30-35%) Moderate mitral stenosis and severe tricuspid regurgitation Moderate pulmonary hypertension Permanent atrial fibrillation/flutter (chads Vasc 6)-secondary hypercoagulability state Ischemic cardiomyopathy with history of CT status post stent placement in 10/2024 Ruled out acute coronary syndrome Questionable community-acquired pneumonia Hospice revoked Obesity Hypertension Dyslipidemia COPD/asthma-on home oxygen at 4 L/min Ethan thyroiditis Lupus IBS CKD stage 3 Peripheral artery disease status post stent placement Plan/Recommendation EKG shows atrial flutter with LBBB (on previous EKGs), troponin negative in patient presents with noncardiac pain. Ruled out acute coronary syndrome Patient has been off of her GDM T due to hospice status for one week. Patient has acute on chronic congestive heart failure. Currently on IV diuretics Indicate strict I&Os Echocardiogram shows LVEF 30-35%, moderate mitral stenosis, mitral clip and mitral valve, severe tricuspid regurgitation, severe biatrial enlargement, moderate pulmonary hypertension. Trying to optimize GDM T. Currently on carvedilol, empagliflozin and valsartan. Spironolactone added K+ replaced Community-acquired pneumonia rest of baseline disease management per primary team. Goals of care discussed with patient for over 18 minutes: Full code status Discussed plan with Dr. Olvera, patient, family and nurses: Patient currently is on telemetry status. Patient does not want to be comfort care, she agrees to all invasive and curative procedures. She may benefit from BOARD FILLER-D with AV ablation eventually once she has stabilized and on GDM T for at least three months. Currently patient on management for her acute on chronic congestive heart failure, continue with IV furosemide until 08/08/2025 and switch to p.o. (patient currently on nasal cannula 2 L/min, her home oxygen requirement is 4 L/min). Optimize GDM T. patient has poor prognosis. Cardiology will sign off from case since her acute on chronic congestive heart failure seems to be responding with medical treatment. Recommend follow up with Cardiology as outpatient. Plan discussed with: Patient, Other (Nurses) My Orders My Orders Orders - GEOFFREY DIAZ Procedure Category Date Status Time Enoxaparin Sodium PHA 08/06/25 In Process (Lovenox) 22:00 Dietary Evaluation Review Comments: Monitor PO intake, lab values, weight trend, and I/O Expected Outcomes/Goals: Intake to meet >75% estimated needs Fu 3-5 days Visit Coding Cardiology RES Date of Service: Aug 07, 2025 Billing Provider: WINNIE ETIENNE Sr., MD Cardiology Common Codes: [id number] HOSP CARE(High Cardiology Secondary Visit Cod: [id number] CARE PLAN 30 MINUTES GEOFFREY DIAZ Aug 07, 2025 07:31
[2025-08-07 07:42] LABS: Hematocrit 28.7 % (36.0-46.0); Hemoglobin 9.3 g/dL (12.2-16.2); Mean Corpuscular Hemoglobin 30.0 pg (28.0-32.0); Mean Corpuscular Volume 92.3 fL (80.0-100.0); Nucleated Red Blood Cells % 0.1 %
[2025-08-07 08:00] LABS: Alanine Aminotransferase 11 U/L (7-40); Alkaline Phosphatase 60 U/L (46-116); Anion Gap 6 (5-15); BUN/Creatinine Ratio 21.5 (10.0-20.0); Bilirubin, Total 0.5 mg/dL (0.2-1.0); Blood Urea Nitrogen 20 mg/dL (9-23); Chloride 102 mmol/L (98-107); Potassium 4.3 mmol/L (3.5-5.1); Sodium 142 mmol/L (136-145)
[2025-08-07 08:01] LABS: Albumin 2.8 g/dL (3.2-4.8); Calcium 8.2 mg/dL (8.7-10.4); Carbon Dioxide 34 mmol/L (20-31); Glucose 115 mg/dL (74-106); Total Protein 5.2 g/dL (5.7-8.2)
--- NOTE | 2025-08-07 09:25 | DVHPN2 ---
Reviewed: Care Plan, H&P, Labs, Medications, Previous Orders, Radiology Changes from previous H/P or p: No Changes Eyes: No Pain, No Vision change, No Conjunctivae inflammation, No Eyelid inflammation, No Other, No Redness ENT: No Ear pain, No Ear discharge, No Nose pain, No Nose discharge, No Nose congestion, No Mouth pain, No Mouth swelling, No Throat pain, No Throat swelling, No Other Cardiovascular: No Chest Pain, No Palpitations, No Orthopnea, No Paroxysmal Noc. Dyspnea, No Edema, No Lt Headedness, No Other Respiratory: No Cough, No Dry, No Shortness of breath, No SOB with excertion, No Wheezing, No Hemoptysis, No Pleuritic Pain, No Sputum, No Other Gastrointestinal: No Nausea, No Vomiting, No Abdominal Pain, No Diarrhea, No Constipation, No Melena, No Hematochezia, No Other Genitourinary: No Dysuria, No Frequency, No Incontinence, No Hematuria, No Retention, No Other Musculoskeletal: No other, No neck pain, No shoulder pain, No arm pain, No back pain, No hand pain, No leg pain, No foot pain Skin: No Rash, No Lesions, No Jaundice, No Bruising, No Other Objective Vitals Vital Signs Date Time Temp Pulse Resp B/P (MAP) Pulse Ox O2 Delivery O2 Flow Rate FiO2 08/07/25 06:06 84 18 100 08/07/25 05:56 Nasal Cannula* 2 28 08/07/25 05:00 97.7 99/54 (69) 97.7 Intake/Output Intake and Output 08/07/25 07:00 Intake Total 974 ml Output Total 1050 ml Balance -76 ml Intake Oral 450 ml IV Total 524 ml Output Urine Total 1050 ml # Bowel Movements 2 General Appearance: Alert, Oriented X3, Cooperative, No acute distress HEENT: Atraumatic, PERRLA, EOMI, Mucous membr. moist/pink Lungs: Other (rales rt lower lobe) Cardiovascular: Regular rate, Normal S1, Normal S2, No murmurs Abdomen: Normal bowel sounds, Soft, No tenderness, No hepatospenomegaly Medications Current Medications Medications Dose Ordered Sig/Radha Route Start Time Stop Time Status Last Admin Dose Admin Acetaminophen/ Hydrocodone Bitart 1 tab Q4HP PRN PO 07/30/25 15:45 08/06/25 21:16 1 TAB Acetaminophen 650 mg Q6HP PRN PO 07/30/25 15:45 08/06/25 17:03 650 MG Carvedilol 3.125 mg BID PO 07/30/25 22:00 08/06/25 21:17 3.125 MG Atorvastatin Calcium 40 mg HS PO 07/30/25 22:00 08/06/25 21:15 40 MG Ceftriaxone Sodium 50 ml @ 100 mls/hr DAILY@09 IV 08/01/25 09:00 08/06/25 10:13 100 MLS/HR Amiodarone HCl 200 mg Q12HR PO 08/02/25 22:00 08/06/25 21:15 200 MG Polyethylene Glycol 17 gm DAILY PO 08/03/25 10:00 08/03/25 10:03 17 GM Methylprednisolone Sodium Succinate 40 mg DAILY IV 08/05/25 10:00 08/10/25 09:59 08/06/25 10:16 40 MG Empaglifozin 10 mg DAILY PO 08/06/25 10:00 08/06/25 10:15 10 MG Valsartan 80 mg DAILY PO 08/06/25 10:00 08/06/25 10:15 80 MG Melatonin 5 mg HS PRN PO 08/05/25 16:30 UNV Melatonin 5 mg HS PO 08/05/25 22:00 08/06/25 21:15 5 MG Levalbuterol HCl 0.625 mg Q6HR NEB 08/05/25 18:00 08/07/25 05:56 0.625 MG Doxycycline Hyclate 100 ml @ 50 mls/hr Q12H IV 08/06/25 06:00 08/07/25 05:22 50 MLS/HR Enoxaparin Sodium 80 mg Q12HR SC 08/06/25 22:00 08/06/25 21:17 80 MG Furosemide 40 mg BID IV 08/06/25 22:00 08/09/25 21:59 08/06/25 21:18 40 MG Spironolactone 50 mg DAILY PO 08/07/25 10:00 Laboratory Results Laboratory Tests 08/07/25 07:02 Chemistry Test 08/07/25 07:02 Albumin 2.8 g/dL (3.2-4.8) L Calcium Level 8.2 mg/dL (8.7-10.4) L Total Protein 5.2 g/dL (5.7-8.2) L LFT Test 08/07/25 07:02 Alanine Aminotransferase (ALT) 11 U/L (7-40) Alkaline Phosphatase 60 U/L (46-116) Aspartate Amino Transferase (AST) 17 U/L (13-40) Total Bilirubin 0.5 mg/dL (0.2-1.0) Urinalysis Test 07/30/25 14:04 Urine Color Yellow (Yellow) Urine Clarity Clear (Clear) Urine pH 6.0 (5.0-9.0) Urine Specific [place] 1.024 (1.001-1.035) Urine Protein Trace (Negative) H Urine Ketones Negative (Negative) Urine Blood Negative /uL (Negative) Urine Nitrite Negative (Negative) Urine Bilirubin Negative (Negative) Urine Urobilinogen Normal mg/dL (Negative) Urine Leukocyte Esterase Negative /uL (Negative) Urine RBC 1 /hpf (0 - 4) Urine Microscopic WBC 3 /HPF (0-5) Urine Squamous Epithelial Cells Few /hpf (<5) Urine Bacteria None seen /hpf (None Seen) Urine Mucus Few (None Seen) Urine Glucose Normal mg/dL (Normal) Microbiology Microbiology Date/Time Source Procedure Growth Status 07/31/25 15:16 Blood Blood Culture - Final NO GROWTH AFTER 5 DAYS OF INCUBATION. Complete 07/30/25 14:04 Voided Urine Urine Culture - Final Complete Labs and/or images reviewed: Labs reviewed by me, Image(s) reviewed by me Assessment/Plan Assessment/Plan Covering for Dr. Burger Sepsis secondary to pneumonia Acute on chronic hypoxic respiratory failure Acute community-acquired pneumonia Gram-positive versus Gram-negative: Continue Rocephin Paroxysmal AFib amiodarone Lovenox Acute COPD exacerbation bedbound VICKY VMN on CKD acute on chronic systolic HF HFrEF 30% mod MS MR s/p mitraclip mod pHTN Obesity Continue Current management Time spent 50 minutes Advanced care planning time 20 minutes Patient is full code Plan discussed with: Patient My Orders Orders - KWAKU BERRY MD Procedure Category Date Status Time Pt Request For Service PT 08/06/25 Logged 14:17 Date of Service: Aug 07, 2025 Billing Provider: KWAKU BERRY MD Common Visit Codes: [id number] CARE 30-74 MIN KWAKU BERRY MD Aug 07, 2025 09:25
[2025-08-07] MEDS: SPIRONOLACTONE 25 MG TAB PO SCH (09:38)
[2025-08-07 11:41] LABS: Base Excess 9.2 mmol/L (-2.0-3.0)
[2025-08-07] MEDS ORDERED: DOXY100C79 PO (13:53)
[2025-08-07] MEDS ORDERED: SPIR25TA PO (13:53)
[2025-08-07] MEDS ORDERED: EMPA1TAB PO (13:53)
[2025-08-07] MEDS ORDERED: PRED20TA2 PO (13:54)
--- NOTE | 2025-08-07 14:00 | DVHDS2 ---
Discharge Summary Date of Admission Jul 30, 2025 at 15:36 Date of Discharge: Aug 07, 2025 Admitting Diagnosis Shortness of breath Wounds: None Labs/Diagnostic Data: Laboratory Results Test 08/07/25 11:24 08/07/25 07:02 08/05/25 21:04 08/05/25 16:06 Blood Gas Specimen Type Arterial Blood Gas Sample Site Right radial Blood Gas Patient Temperature 37.0 Arterial Blood Date Drawn [id number] Arterial Blood pH 7.480 (7.350-7.450) Arterial Blood Partial Pressure CO2 46.4 mmHg (32.0-45.0) Arterial Blood Partial Pressure O2 55.2 mmHg (83.0-108.0) Arterial Blood HCO3 33.8 mmol/L (21.0-28.0) Arterial Blood Oxygen Saturation 88.4 % (94.0-98.0) Arterial Blood Base Excess 9.2 mmol/L (-2.0-3.0) Arterial Blood Oxyhemoglobin 87.8 % (94.0-98.0) Arterial Blood Carboxyhemoglobin 0.4 % (0.5-1.5) Arterial Blood Methemoglobin 0.3 % (0.0-1.5) Theodore Test Yes Blood Gas Total Hemoglobin 11.40 g/dL (12.0-16.0) Blood Gas Modality Room air FiO2 % 21.0 White Blood Count 14.3 10^3/uL (4.4-10.8) Red Blood Count 3.11 10^6/uL (4.0-5.20) Hemoglobin 9.3 g/dL (12.2-16.2) Hematocrit 28.7 % (36.0-46.0) Mean Corpuscular Volume 92.3 fL (80.0-100.0) Mean Corpuscular Hemoglobin 30.0 pg (28.0-32.0) Mean Corpuscular Hemoglobin Concent 32.5 g/dL (32.0-36.0) Red Cell Distribution Width 17.3 % (11.8-14.3) Platelet Count 374 10^3/uL (140-450) Mean Platelet Volume 7.6 fL (6.9-10.8) Neutrophils (%) (Auto) 88.3 % (37.0-80.0) Lymphocytes (%) (Auto) 5.8 % (10.0-50.0) Monocytes (%) (Auto) 5.8 % (0.0-12.0) Eosinophils (%) (Auto) 0.0 % (0.0-7.0) Basophils (%) (Auto) 0.1 % (0.0-2.0) Neutrophils # (Auto) 12.6 10 ^3/uL (1.6-8.6) Lymphocytes # (Auto) 0.8 10 ^3/uL (0.4-5.4) Monocytes # (Auto) 0.8 10 ^3/uL (0-1.3) Eosinophils # (Auto) 0 10 ^3/uL (0-0.8) Basophils # (Auto) 0 10 ^3/uL (0-0.2) Nucleated Red Blood Cells 0.1 % Sodium Level 142 mmol/L (136-145) Potassium Level 4.3 mmol/L (3.5-5.1) Chloride Level 102 mmol/L (98-107) Carbon Dioxide Level 34 mmol/L (20-31) Anion Gap 6 (5-15) Blood Urea Nitrogen 20 mg/dL (9-23) Creatinine 0.93 mg/dL (0.550-1.02) Glomerular Filtration Rate Calc 61 mL/min (>90) BUN/Creatinine Ratio 21.5 (10.0-20.0) Serum Glucose 115 mg/dL (74-106) Calcium Level 8.2 mg/dL (8.7-10.4) Total Bilirubin 0.5 mg/dL (0.2-1.0) Aspartate Amino Transferase (AST) 17 U/L (13-40) Alanine Aminotransferase (ALT) 11 U/L (7-40) Alkaline Phosphatase 60 U/L (46-116) Total Protein 5.2 g/dL (5.7-8.2) Albumin 2.8 g/dL (3.2-4.8) Prothrombin Time 11.1 sec (9.3-11.8) Prothrombin Time INR 1.05 (0.9-1.15) Activated Partial Thromboplast Time 24.2 SEC (24.5-34.5) SARS-CoV-2 Antigen (Rapid) Negative (NEGATIVE) Test 08/05/25 05:32 08/05/25 03:30 07/31/25 07:38 07/30/25 14:04 Hemoglobin A1c 5.2 % A1C (<5.7) Phosphorus Level 2.6 mg/dL (2.4-5.1) Magnesium Level 2.0 mg/dL (1.6-2.6) Triglycerides Level 114 mg/dL (< 150) Cholesterol Level 134 mg/dL (< 200) LDL Cholesterol 86 mg/dL (< 100) HDL Cholesterol 36 mg/dL (40-59) Vitamin B12 Level 366 pg/mL (211-911) Vitamin D 25-Hydroxy 74.0 ng/mL (30.0-100) Thyroid Stimulating Hormone (TSH) 1.27 uIU/mL (0.55-4.78) Blood Gas Set Respiration Rate 14.0 Blood Gas EPAP 5 Blood Gas IPAP 10 B-Type Natriuretic Peptide 1923.93 pg/mL (0-100) Urine Color Yellow (Yellow) Urine Clarity Clear (Clear) Urine pH 6.0 (5.0-9.0) Urine Specific [place] 1.024 (1.001-1.035) Urine Protein Trace (Negative) Urine Ketones Negative (Negative) Urine Blood Negative /uL (Negative) Urine Nitrite Negative (Negative) Urine Bilirubin Negative (Negative) Urine Urobilinogen Normal mg/dL (Negative) Urine Leukocyte Esterase Negative /uL (Negative) Urine RBC 1 /hpf (0 - 4) Urine Microscopic WBC 3 /HPF (0-5) Urine Squamous Epithelial Cells Few /hpf (<5) Urine Bacteria None seen /hpf (None Seen) Urine Mucus Few (None Seen) Urine Glucose Normal mg/dL (Normal) Test 07/30/25 12:24 Troponin I High Sensitivity 30 ng/L (</=34) Other Laboratory Tests 08/07/25 07:02 Brief Hx & Hospital Course: 84-year-old female with multiple medical problems including COPD AFib on amiodarone CHF ejection fraction 30 percent mitral regurgitation status post mitral clip hypotension obesity came in complaining of shortness of breaths. She was on hospice hospice was revoked and admitted found to have sepsis secondary to pneumonia treated with doxycycline Rocephin albuterol Atrovent Solu-Medrol paroxysmal AFib treated with the amiodarone Lovenox. Patient showed significant improvement at the time of discharge on 2 L of oxygen by nasal cannula. Discharged home on doxycycline. Home health arranged for physical therapy and oxygen. General condition stable but poor at the time of discharge. Consults/Reason for consult None Operations or Procedures None Condition at Discharge: Fair Final Diagnosis/Problems List Sepsis secondary to pneumonia Acute on chronic hypoxic respiratory failure Acute community-acquired pneumonia Gram-positive versus Gram-negative: Continue Rocephin Paroxysmal AFib amiodarone Lovenox Acute COPD exacerbation bedbound VICKY VMN on CKD acute on chronic systolic HF HFrEF 30% mod MS MR s/p mitraclip Obesity Discharge Disposition: Home with Health Services Discharge Instruct/Medications Diet: Cardiac 2g Na,low cholest Activity: Light activity Follow Up/Referral: Resume all previous home medications Use new medications as prescribed Medications: Azithromycin Prednisone Spironolactone Jardiance Transmitted to [facility] Reviewed all previous home medications Scheduled Albuterol Sulfate (Albuterol Sulfate Hfa), 2 PUFF INH Q4HR PRN, (Reported) Albuterol Sulfate (Albuterol Sulfate Hfa), 216 MCG IN QIDP Apixaban Base (Eliquis), 1 TAB PO BID, (Reported) Apixaban Base (Eliquis), 2.5 MG PO BID Aspirin (Aspir-81), 1 TAB PO DAILY, (Reported) Atorvastatin Calcium (Atorvastatin Calcium), 1 TAB PO DAILY, (Reported) Atorvastatin Calcium (Atorvastatin Calcium), 20 MG PO HS Carvedilol (Coreg), 3.125 MG PO BID Doxycycline (Monohydrate) (Doxycycline), 100 MG PO BID Empagliflozin (Jardiance), 10 MG PO DAILY Empagliflozin (Jardiance), 10 MG PO DAILY Famotidine (Pepcid Tablet), 1 TAB PO BID Furosemide (Furosemide), 1 TAB PO QAM Furosemide (Furosemide), 20 MG PO DAILY Hydrocodone-Acetaminophen (Hydrocodone Bitartrate/AC 5-325 mg), 1 TAB PO Q12HR PRN, (Reported) Hydrocodone-Acetaminophen (Hydrocodone Bitartrate/AC 5-325 mg), 1 TAB PO Q12HR PRN, (Reported) Ipratropium-Albuterol (Ipratropium [place]/Albut), 1 ROSA IN BID Lisinopril (Lisinopril), 1 TAB PO DAILY, (Reported) Lisinopril (Lisinopril), 5 MG PO DAILY Metoprolol Succinate (Metoprolol Succinate Er), 1 TAB PO DAILY, (Reported) Nitroglycerin (Ntrostat Sublingual), 0.4 MG SL PRN, (Reported) Pantoprazole Sodium Sesquihydr (Pantoprazole Sodium), 1 TAB PO DAILY, (Reported) Potassium Chloride (Potassium Chloride ER), 1 TAB PO DAILY Prednisone (Prednisone), 1 TAB PO BID, (Reported) Prednisone (Prednisone), 20 MG PO DAILY Spironolactone (Aldactone), 1 TAB PO DAILY Tiotropium [place] Monohydrate (Spiriva Respimat), 2 PUFF INH DAILY, (Reported) Scheduled PRN Benzonatate (Benzonatate), 1 CAP PO TID PRN for FOR COUGH, (Reported) Miscellaneous Medications Guaifenesin (Chest Congestion Relief), PO, (Reported) Loperamide Hcl (Loperamide Hcl), 2 MG PO, (Reported) Ondansetron HCl (Ondansetron), 4 MG PO, (Reported) Sumatriptan Succinate (Imitrex), 50 MG PO, (Reported) 39 (Time taken for discharge summary 39 minutes) Discharge Statement: "Patient was advised to return to the ER or call 911 if any headaches, dizziness, shortness of breath, chest pain, abdominal pain, bleeding, fevers, or worsening of medical condition. Patient was counseled about treatment plan, medications, possible side effects, patientverbalized understanding. All questions were answered to the best of my ability. This discharge took greater then 30 minutes in planning, reviewing documentation, counseling the patient, and discussing with other team members." ASSESSMENT ASSESSMENT Hospital Course Improved Assessment Sepsis secondary to pneumonia Acute on chronic hypoxic respiratory failure Acute community-acquired pneumonia Gram-positive versus Gram-negative: Continue Rocephin Paroxysmal AFib amiodarone Lovenox Acute COPD exacerbation bedbound VICKY VMN on CKD acute on chronic systolic HF HFrEF 30% mod MS MR s/p mitraclip Obesity Date of Service: Aug 07, 2025 Billing Provider: KWAKU BERRY MD Common Visit Codes: [id number] DISCH DAY >30min KWAKU BERRY MD Aug 07, 2025 14:00
[2025-08-07] MEDS ORDERED: AMIO200T33 PO (14:01)
[2025-08-07] MEDS: FUROSEMIDE 40 MG/4 ML VIAL IV SCH (21:18)
--- NOTE | 2025-08-07 23:45 | DVHPN2 ---
[facility] DOS: 08/07/2025 Patient seen and examined at bedside. Remains on supplemental oxygen Overnight events reviewed. Reviewed: Care Plan, H&P, Labs, Medications, Previous Orders, Radiology Changes from previous H/P or p: No Changes Eyes: No Pain, No Vision change, No Conjunctivae inflammation, No Eyelid inflammation, No Other, No Redness ENT: No Ear pain, No Ear discharge, No Nose pain, No Nose discharge, No Nose congestion, No Mouth pain, No Mouth swelling, No Throat pain, No Throat swelling, No Other Cardiovascular: No Chest Pain, No Palpitations, No Orthopnea, No Paroxysmal Noc. Dyspnea, No Edema, No Lt Headedness, No Other Respiratory: No Cough, No Dry, No Shortness of breath, No SOB with excertion, No Wheezing, No Hemoptysis, No Pleuritic Pain, No Sputum, No Other Gastrointestinal: No Nausea, No Vomiting, No Abdominal Pain, No Diarrhea, No Constipation, No Melena, No Hematochezia, No Other Genitourinary: No Dysuria, No Frequency, No Incontinence, No Hematuria, No Retention, No Other Musculoskeletal: No other, No neck pain, No shoulder pain, No arm pain, No back pain, No hand pain, No leg pain, No foot pain Skin: No Rash, No Lesions, No Jaundice, No Bruising, No Other Objective Vitals Vital Signs Date Time Temp Pulse Resp B/P (MAP) Pulse Ox O2 Delivery O2 Flow Rate FiO2 08/07/25 21:18 95/59 08/07/25 21:11 85 08/07/25 21:00 98.0 19 96 98.0 08/07/25 20:00 Nasal Cannula* 2 28 Intake/Output Intake and Output 08/07/25 07:00 Intake Total 974 ml Output Total 1050 ml Balance -76 ml Intake Oral 450 ml IV Total 524 ml Output Urine Total 1050 ml # Bowel Movements 2 General Appearance: Alert, Oriented X3, Cooperative, No acute distress HEENT: Atraumatic, PERRLA, EOMI, Mucous membr. moist/pink Lungs: Other (rales rt lower lobe) Cardiovascular: Regular rate, Normal S1, Normal S2, No murmurs Abdomen: Normal bowel sounds, Soft, No tenderness, No hepatospenomegaly Medications Current Medications Medications Dose Ordered Sig/Radha Route Start Time Stop Time Status Last Admin Dose Admin Acetaminophen/ Hydrocodone Bitart 1 tab Q4HP PRN PO 07/30/25 15:45 08/07/25 17:45 1 TAB Acetaminophen 650 mg Q6HP PRN PO 07/30/25 15:45 08/06/25 17:03 650 MG Carvedilol 3.125 mg BID PO 07/30/25 22:00 08/07/25 21:11 3.125 MG Atorvastatin Calcium 40 mg HS PO 07/30/25 22:00 08/07/25 21:05 40 MG Ceftriaxone Sodium 50 ml @ 100 mls/hr DAILY@09 IV 08/01/25 09:00 08/07/25 09:37 100 MLS/HR Amiodarone HCl 200 mg Q12HR PO 08/02/25 22:00 08/07/25 21:05 200 MG Polyethylene Glycol 17 gm DAILY PO 08/03/25 10:00 08/03/25 10:03 17 GM Methylprednisolone Sodium Succinate 40 mg DAILY IV 08/05/25 10:00 08/10/25 09:59 08/07/25 09:39 40 MG Empaglifozin 10 mg DAILY PO 08/06/25 10:00 08/07/25 09:38 10 MG Valsartan 80 mg DAILY PO 08/06/25 10:00 08/07/25 09:39 80 MG Melatonin 5 mg HS PRN PO 08/05/25 16:30 UNV Melatonin 5 mg HS PO 08/05/25 22:00 08/07/25 21:05 5 MG Levalbuterol HCl 0.625 mg Q6HR NEB 08/05/25 18:00 08/07/25 19:37 0.625 MG Doxycycline Hyclate 100 ml @ 50 mls/hr Q12H IV 08/06/25 06:00 08/07/25 17:43 50 MLS/HR Enoxaparin Sodium 80 mg Q12HR SC 08/06/25 22:00 08/07/25 21:06 80 MG Spironolactone 50 mg DAILY PO 08/07/25 10:00 08/07/25 09:38 50 MG Furosemide 40 mg BID IV 08/07/25 22:00 08/08/25 11:00 Furosemide 40 mg BIDD PO 08/08/25 10:00 Laboratory Results Laboratory Tests 08/07/25 07:02 Chemistry Test 08/07/25 07:02 Albumin 2.8 g/dL (3.2-4.8) L Calcium Level 8.2 mg/dL (8.7-10.4) L Total Protein 5.2 g/dL (5.7-8.2) L LFT Test 08/07/25 07:02 Alanine Aminotransferase (ALT) 11 U/L (7-40) Alkaline Phosphatase 60 U/L (46-116) Aspartate Amino Transferase (AST) 17 U/L (13-40) Total Bilirubin 0.5 mg/dL (0.2-1.0) Urinalysis Test 07/30/25 14:04 Urine Color Yellow (Yellow) Urine Clarity Clear (Clear) Urine pH 6.0 (5.0-9.0) Urine Specific [place] 1.024 (1.001-1.035) Urine Protein Trace (Negative) H Urine Ketones Negative (Negative) Urine Blood Negative /uL (Negative) Urine Nitrite Negative (Negative) Urine Bilirubin Negative (Negative) Urine Urobilinogen Normal mg/dL (Negative) Urine Leukocyte Esterase Negative /uL (Negative) Urine RBC 1 /hpf (0 - 4) Urine Microscopic WBC 3 /HPF (0-5) Urine Squamous Epithelial Cells Few /hpf (<5) Urine Bacteria None seen /hpf (None Seen) Urine Mucus Few (None Seen) Urine Glucose Normal mg/dL (Normal) Blood Gas Results Test 08/07/25 11:24 Arterial Blood pH 7.480 (7.350-7.450) FiO2 % 21.0 Microbiology Microbiology Date/Time Source Procedure Growth Status 07/31/25 15:16 Blood Blood Culture - Final NO GROWTH AFTER 5 DAYS OF INCUBATION. Complete 07/30/25 14:04 Voided Urine Urine Culture - Final Complete Assessment/Plan Assessment/Plan Impression: Acute on chronic hypoxic respiratory failure Chronic hypercarbic respiratory failure Dependence on supplemental oxygen Pleural effusion Atelectasis Pneumonia, likely GNR COPD exacerbation Pulmonary hypertension, RVSP 45 mmHg Events: Remains on supplemental oxygen, 2 LPM NC Taper O2 as tolerated ABG reviewed, notable for alkalemia with PaO2 of 55.2. Continue bronchodilators Continue steroids Continue antibiotics Incentive spirometry Patient is stable for discharge from the pulmonary standpoint. Echocardiogram reviewed, shows LVEF 30-35%, moderate mitral stenosis, mitral clip and mitral valve, severe tricuspid regurgitation, severe biatrial enlargement, moderate pulmonary hypertension Cardiology recs appreciated Labs and imaging reviewed. Rest of plan as noted below. Plan: Supplemental oxygen Titrate to keep O2 sats above 92%. CXR on 08/05 shows bilateral pleural effusions, atelectasis, and pulmonary vascular congestion. Repeat chest x-ray in 48 hours to assess for interval changes. Maintain euvolemia Monitor renal function. Monitor electrolytes. Supplement as necessary. Monitor ins and outs Continue bronchodilators. Continue antibiotics IV steroids Incentive spirometry On amiodarone PO, therapeutic Lovenox Cardiology recs appreciated DVT prophylaxis. Prognosis: Poor given patient's multiple co-morbidities. Rest of plan per hospitalist and other consultants. Thank you, Dr. Burger, for allowing me to participate in this patient's care. Further recommendations will depend on the patient's clinical course. Please do not hesitate to contact me if you have any questions or concerns. This medical document was created using an electronic medical record system with [employer] computerized dictation system. Although these documentations are being carefully reviewed, there may still be some phonetic and typographical changes. The errors are purely typographical, due to imperfection on the software program, and do not reflect any compromise in the patient's medical care. Plan discussed with: Patient, Other (VALARIE Srinivasan) Visit Coding Pulmonary Billing Provider: FRANCISCO VILLAGRAN MD Date of Service if different f: Aug 07, 2025 Common Visit Codes: [id number] INP/OBS CARE(HIGH) FRANCISCO VILLAGRAN MD Aug 07, 2025 23:45
[2025-08-08] VITALS (18 sets, daily range): BP systolic 91–111; BP diastolic 53–73; PULSE 69–85; RESP 16–22; TEMP 97.3–98.5; O2SAT 94–100
[2025-08-08] MEDS: FUROSEMIDE 40 MG TAB PO SCH (05:10)
[2025-08-08 11:12] LABS: Base Excess 9.0 mmol/L (-2.0-3.0)
--- NOTE | 2025-08-08 14:06 | DVHPN2 ---
Reviewed: Care Plan, H&P, Labs, Medications, Previous Orders, Radiology Changes from previous H/P or p: No Changes General: Per HPI Eyes: No Pain, No Vision change, No Conjunctivae inflammation, No Eyelid inflammation, No Other, No Redness ENT: No Ear pain, No Ear discharge, No Nose pain, No Nose discharge, No Nose congestion, No Mouth pain, No Mouth swelling, No Throat pain, No Throat swelling, No Other Cardiovascular: No Chest Pain, No Palpitations, No Orthopnea, No Paroxysmal Noc. Dyspnea, No Edema, No Lt Headedness, No Other Respiratory: No Cough, No Dry, No Shortness of breath, No SOB with excertion, No Wheezing, No Hemoptysis, No Pleuritic Pain, No Sputum, No Other Gastrointestinal: No Nausea, No Vomiting, No Abdominal Pain, No Diarrhea, No Constipation, No Melena, No Hematochezia, No Other Genitourinary: No Dysuria, No Frequency, No Incontinence, No Hematuria, No Retention, No Other Musculoskeletal: No other, No neck pain, No shoulder pain, No arm pain, No back pain, No hand pain, No leg pain, No foot pain Skin: No Rash, No Lesions, No Jaundice, No Bruising, No Other Objective Vitals Vital Signs Date Time Temp Pulse Resp B/P (MAP) Pulse Ox O2 Delivery O2 Flow Rate FiO2 08/08/25 13:00 97.6 85 20 111/70 (84) 97 97.6 08/08/25 11:22 Nasal Cannula* 2 28 Intake/Output Intake and Output 08/08/25 07:00 Intake Total 984 ml Output Total 1725 ml Balance -741 ml Intake Oral 734 ml IV Total 250 ml Output Urine Total 1725 ml # Bowel Movements 2 General Appearance: Alert, Oriented X3, Cooperative, No acute distress HEENT: Atraumatic, PERRLA, EOMI, Mucous membr. moist/pink Lungs: Other (rales rt lower lobe) Cardiovascular: Regular rate, Normal S1, Normal S2, No murmurs Abdomen: Normal bowel sounds, Soft, No tenderness, No hepatospenomegaly Medications Current Medications Medications Dose Ordered Sig/Radha Route Start Time Stop Time Status Last Admin Dose Admin Acetaminophen/ Hydrocodone Bitart 1 tab Q4HP PRN PO 07/30/25 15:45 08/07/25 17:45 1 TAB Acetaminophen 650 mg Q6HP PRN PO 07/30/25 15:45 08/06/25 17:03 650 MG Carvedilol 3.125 mg BID PO 07/30/25 22:00 08/07/25 21:11 3.125 MG Atorvastatin Calcium 40 mg HS PO 07/30/25 22:00 08/07/25 21:05 40 MG Ceftriaxone Sodium 50 ml @ 100 mls/hr DAILY@09 IV 08/01/25 09:00 08/08/25 09:10 100 MLS/HR Amiodarone HCl 200 mg Q12HR PO 08/02/25 22:00 08/08/25 09:27 200 MG Polyethylene Glycol 17 gm DAILY PO 08/03/25 10:00 08/03/25 10:03 17 GM Methylprednisolone Sodium Succinate 40 mg DAILY IV 08/05/25 10:00 08/10/25 09:59 08/08/25 09:26 40 MG Empaglifozin 10 mg DAILY PO 08/06/25 10:00 08/08/25 09:27 10 MG Valsartan 80 mg DAILY PO 08/06/25 10:00 08/07/25 09:39 80 MG Melatonin 5 mg HS PRN PO 08/05/25 16:30 UNV Melatonin 5 mg HS PO 08/05/25 22:00 08/07/25 21:05 5 MG Levalbuterol HCl 0.625 mg Q6HR NEB 08/05/25 18:00 08/08/25 11:22 0.625 MG Doxycycline Hyclate 100 ml @ 50 mls/hr Q12H IV 08/06/25 06:00 08/08/25 05:10 50 MLS/HR Enoxaparin Sodium 80 mg Q12HR SC 08/06/25 22:00 08/08/25 09:27 80 MG Spironolactone 50 mg DAILY PO 08/07/25 10:00 08/08/25 09:27 50 MG Laboratory Results Laboratory Tests 08/07/25 07:02 Urinalysis Test 07/30/25 14:04 Urine Color Yellow (Yellow) Urine Clarity Clear (Clear) Urine pH 6.0 (5.0-9.0) Urine Specific [place] 1.024 (1.001-1.035) Urine Protein Trace (Negative) H Urine Ketones Negative (Negative) Urine Blood Negative /uL (Negative) Urine Nitrite Negative (Negative) Urine Bilirubin Negative (Negative) Urine Urobilinogen Normal mg/dL (Negative) Urine Leukocyte Esterase Negative /uL (Negative) Urine RBC 1 /hpf (0 - 4) Urine Microscopic WBC 3 /HPF (0-5) Urine Squamous Epithelial Cells Few /hpf (<5) Urine Bacteria None seen /hpf (None Seen) Urine Mucus Few (None Seen) Urine Glucose Normal mg/dL (Normal) Blood Gas Results Test 08/08/25 11:01 Arterial Blood pH 7.503 (7.350-7.450) FiO2 % 21.0 Microbiology Microbiology Date/Time Source Procedure Growth Status 07/31/25 15:16 Blood Blood Culture - Final NO GROWTH AFTER 5 DAYS OF INCUBATION. Complete 07/30/25 14:04 Voided Urine Urine Culture - Final Complete Labs and/or images reviewed: Labs reviewed by me, Image(s) reviewed by me Assessment/Plan Assessment/Plan 08/08: Patient had plan for home health for home PT yesterday, discharge by Dr. Harper. Patient in agreement with the plan, not interested in hospice at this moment. She has hospice prior for CHF. We will continue with discharge plan. Sepsis secondary to pneumonia Acute on chronic hypoxic respiratory failure Acute community-acquired pneumonia Gram-positive versus Gram-negative: Continue Rocephin Paroxysmal AFib amiodarone Lovenox Acute COPD exacerbation bedbound VICKY VMN on CKD acute on chronic systolic HF HFrEF 30% mod MS MR s/p mitraclip mod pHTN Obesity Tele Full code Plan discussed with: Patient Date of Service: Aug 08, 2025 Billing Provider: PERCY HAYES MD Common Visit Codes: [id number] INP/OBS CARE(MOD) PERCY HAYES MD Aug 08, 2025 14:06
--- NOTE | 2025-08-08 19:52 | DVHPN2 ---
[facility] DOS: 08/08/2025 Patient seen and examined at bedside. Remains on supplemental oxygen Overnight events reviewed. Reviewed: Care Plan, H&P, Labs, Medications, Previous Orders, Radiology Changes from previous H/P or p: No Changes General: Per HPI Eyes: No Pain, No Vision change, No Conjunctivae inflammation, No Eyelid inflammation, No Other, No Redness ENT: No Ear pain, No Ear discharge, No Nose pain, No Nose discharge, No Nose congestion, No Mouth pain, No Mouth swelling, No Throat pain, No Throat swelling, No Other Cardiovascular: No Chest Pain, No Palpitations, No Orthopnea, No Paroxysmal Noc. Dyspnea, No Edema, No Lt Headedness, No Other Respiratory: No Cough, No Dry, No Shortness of breath, No SOB with excertion, No Wheezing, No Hemoptysis, No Pleuritic Pain, No Sputum, No Other Gastrointestinal: No Nausea, No Vomiting, No Abdominal Pain, No Diarrhea, No Constipation, No Melena, No Hematochezia, No Other Genitourinary: No Dysuria, No Frequency, No Incontinence, No Hematuria, No Retention, No Other Musculoskeletal: No other, No neck pain, No shoulder pain, No arm pain, No back pain, No hand pain, No leg pain, No foot pain Skin: No Rash, No Lesions, No Jaundice, No Bruising, No Other Objective Vitals Vital Signs Date Time Temp Pulse Resp B/P (MAP) Pulse Ox O2 Delivery O2 Flow Rate FiO2 08/08/25 17:00 97.3 84 18 95/59 (71) 98 97.3 08/08/25 11:22 Nasal Cannula* 2 28 Intake/Output Intake and Output 08/08/25 07:00 Intake Total 984 ml Output Total 1725 ml Balance -741 ml Intake Oral 734 ml IV Total 250 ml Output Urine Total 1725 ml # Bowel Movements 2 General Appearance: Alert, Oriented X3, Cooperative, No acute distress HEENT: Atraumatic, PERRLA, EOMI, Mucous membr. moist/pink Lungs: Other (rales rt lower lobe) Cardiovascular: Regular rate, Normal S1, Normal S2, No murmurs Abdomen: Normal bowel sounds, Soft, No tenderness, No hepatospenomegaly Medications Current Medications Medications Dose Ordered Sig/Radha Route Start Time Stop Time Status Last Admin Dose Admin Acetaminophen 650 mg Q6HP PRN PO 07/30/25 15:45 08/06/25 17:03 650 MG Carvedilol 3.125 mg BID PO 07/30/25 22:00 08/07/25 21:11 3.125 MG Atorvastatin Calcium 40 mg HS PO 07/30/25 22:00 08/07/25 21:05 40 MG Ceftriaxone Sodium 50 ml @ 100 mls/hr DAILY@09 IV 08/01/25 09:00 08/08/25 09:10 100 MLS/HR Amiodarone HCl 200 mg Q12HR PO 08/02/25 22:00 08/08/25 09:27 200 MG Polyethylene Glycol 17 gm DAILY PO 08/03/25 10:00 08/03/25 10:03 17 GM Methylprednisolone Sodium Succinate 40 mg DAILY IV 08/05/25 10:00 08/10/25 09:59 08/08/25 09:26 40 MG Empaglifozin 10 mg DAILY PO 08/06/25 10:00 08/08/25 09:27 10 MG Valsartan 80 mg DAILY PO 08/06/25 10:00 08/07/25 09:39 80 MG Melatonin 5 mg HS PRN PO 08/05/25 16:30 UNV Melatonin 5 mg HS PO 08/05/25 22:00 08/07/25 21:05 5 MG Levalbuterol HCl 0.625 mg Q6HR NEB 08/05/25 18:00 08/08/25 18:27 0.625 MG Doxycycline Hyclate 100 ml @ 50 mls/hr Q12H IV 08/06/25 06:00 08/08/25 18:19 50 MLS/HR Enoxaparin Sodium 80 mg Q12HR SC 08/06/25 22:00 08/08/25 09:27 80 MG Spironolactone 50 mg DAILY PO 08/07/25 10:00 08/08/25 09:27 50 MG Laboratory Results Laboratory Tests 08/07/25 07:02 Urinalysis Test 07/30/25 14:04 Urine Color Yellow (Yellow) Urine Clarity Clear (Clear) Urine pH 6.0 (5.0-9.0) Urine Specific Street 1.024 (1.001-1.035) Urine Protein Trace (Negative) H Urine Ketones Negative (Negative) Urine Blood Negative /uL (Negative) Urine Nitrite Negative (Negative) Urine Bilirubin Negative (Negative) Urine Urobilinogen Normal mg/dL (Negative) Urine Leukocyte Esterase Negative /uL (Negative) Urine RBC 1 /hpf (0 - 4) Urine Microscopic WBC 3 /HPF (0-5) Urine Squamous Epithelial Cells Few /hpf (<5) Urine Bacteria None seen /hpf (None Seen) Urine Mucus Few (None Seen) Urine Glucose Normal mg/dL (Normal) Blood Gas Results Test 08/08/25 11:01 Arterial Blood pH 7.503 (7.350-7.450) FiO2 % 21.0 Microbiology Microbiology Date/Time Source Procedure Growth Status 07/31/25 15:16 Blood Blood Culture - Final NO GROWTH AFTER 5 DAYS OF INCUBATION. Complete 07/30/25 14:04 Voided Urine Urine Culture - Final Complete Assessment/Plan Assessment/Plan Impression: Acute on chronic hypoxic respiratory failure Chronic hypercarbic respiratory failure Dependence on supplemental oxygen Pleural effusion Atelectasis Pneumonia, likely GNR COPD exacerbation Pulmonary hypertension, RVSP 45 mmHg Events: Remains on supplemental oxygen, 2-3 LPM NC Taper O2 as tolerated ABG reviewed, notable for alkalemia with PaO2 of 57.6. Continue bronchodilators Continue IV steroids Continue antibiotics Incentive spirometry Continue Lasix for diuresis Monitor renal function Monitor renal function. Monitor electrolytes. Supplement as necessary. Patient is stable for discharge from the pulmonary standpoint. CXR on 08/05 showed bilateral pleural effusions, atelectasis, and pulmonary vascular congestion. Echocardiogram reviewed, shows LVEF 30-35%, moderate mitral stenosis, mitral clip and mitral valve, severe tricuspid regurgitation, severe biatrial enlargement, moderate pulmonary hypertension Cardiology recs appreciated Labs and imaging reviewed. Rest of plan as noted below. Plan: Supplemental oxygen Titrate to keep O2 sats above 92%. Diurese to euvolemia Monitor renal function. Monitor electrolytes. Supplement as necessary. Monitor ins and outs Continue bronchodilators. Continue antibiotics IV steroids Incentive spirometry On amiodarone PO, therapeutic Lovenox Cardiology recs appreciated DVT prophylaxis. Prognosis: Poor given patient's multiple co-morbidities. Rest of plan per hospitalist and other consultants. Thank you, Dr. Burger, for allowing me to participate in this patient's care. Further recommendations will depend on the patient's clinical course. Please do not hesitate to contact me if you have any questions or concerns. This medical document was created using an electronic medical record system with [employer] dictation system. Although these documentations are being carefully reviewed, there may still be some phonetic and typographical changes. The errors are purely typographical, due to imperfection on the software program, and do not reflect any compromise in the patient's medical care. Plan discussed with: Patient, Other (VALARIE Patel) Visit Coding Pulmonary Billing Provider: FRANCISCO VILLAGRAN MD Date of Service if different f: Aug 08, 2025 Common Visit Codes: [id number] INP/OBS CARE(HIGH) FRANCISCO VILLAGRAN MD Aug 08, 2025 19:52
[2025-08-08] MEDS: HYDROcodone-ACET 5/325MG TAB PO ONE (23:02)
[2025-08-09] VITALS (14 sets, daily range): BP systolic 107–132; BP diastolic 58–78; PULSE 75–90; RESP 17–20; TEMP 97–98; O2SAT 96–100
--- NOTE | 2025-08-09 10:22 | DVHPN2 ---
Reviewed: Care Plan, H&P, Labs, Medications, Previous Orders, Radiology Changes from previous H/P or p: No Changes General: Per HPI Eyes: No Pain, No Vision change, No Conjunctivae inflammation, No Eyelid inflammation, No Other, No Redness ENT: No Ear pain, No Ear discharge, No Nose pain, No Nose discharge, No Nose congestion, No Mouth pain, No Mouth swelling, No Throat pain, No Throat swelling, No Other Cardiovascular: No Chest Pain, No Palpitations, No Orthopnea, No Paroxysmal Noc. Dyspnea, No Edema, No Lt Headedness, No Other Respiratory: No Cough, No Dry, No Shortness of breath, No SOB with excertion, No Wheezing, No Hemoptysis, No Pleuritic Pain, No Sputum, No Other Gastrointestinal: No Nausea, No Vomiting, No Abdominal Pain, No Diarrhea, No Constipation, No Melena, No Hematochezia, No Other Genitourinary: No Dysuria, No Frequency, No Incontinence, No Hematuria, No Retention, No Other Musculoskeletal: No other, No neck pain, No shoulder pain, No arm pain, No back pain, No hand pain, No leg pain, No foot pain Skin: No Rash, No Lesions, No Jaundice, No Bruising, No Other Objective Vitals Vital Signs Date Time Temp Pulse Resp B/P (MAP) Pulse Ox O2 Delivery O2 Flow Rate FiO2 08/09/25 09:00 98.0 90 18 132/78 (96) 97 98.0 08/09/25 06:36 Nasal Cannula 3.0 08/09/25 06:36 32 Intake/Output Intake and Output 08/09/25 07:00 Intake Total 1324 ml Output Total 1650 ml Balance -326 ml Intake Oral 280 ml IV Total 250 ml Tube Feeding 794 ml Output Urine Total 1650 ml # Bowel Movements 1 General Appearance: Alert, Oriented X3, Cooperative, No acute distress HEENT: Atraumatic, PERRLA, EOMI, Mucous membr. moist/pink Lungs: Other (rales rt lower lobe) Cardiovascular: Regular rate, Normal S1, Normal S2, No murmurs Abdomen: Normal bowel sounds, Soft, No tenderness, No hepatospenomegaly Medications Current Medications Medications Dose Ordered Sig/Radha Route Start Time Stop Time Status Last Admin Dose Admin Acetaminophen 650 mg Q6HP PRN PO 07/30/25 15:45 08/06/25 17:03 650 MG Carvedilol 3.125 mg BID PO 07/30/25 22:00 08/07/25 21:11 3.125 MG Atorvastatin Calcium 40 mg HS PO 07/30/25 22:00 08/08/25 23:01 40 MG Ceftriaxone Sodium 50 ml @ 100 mls/hr DAILY@09 IV 08/01/25 09:00 08/08/25 09:10 100 MLS/HR Amiodarone HCl 200 mg Q12HR PO 08/02/25 22:00 08/08/25 23:01 200 MG Polyethylene Glycol 17 gm DAILY PO 08/03/25 10:00 08/03/25 10:03 17 GM Methylprednisolone Sodium Succinate 40 mg DAILY IV 08/05/25 10:00 08/10/25 09:59 08/08/25 09:26 40 MG Empaglifozin 10 mg DAILY PO 08/06/25 10:00 08/08/25 09:27 10 MG Valsartan 80 mg DAILY PO 08/06/25 10:00 08/07/25 09:39 80 MG Melatonin 5 mg HS PRN PO 08/05/25 16:30 UNV Melatonin 5 mg HS PO 08/05/25 22:00 08/08/25 23:00 5 MG Levalbuterol HCl 0.625 mg Q6HR NEB 08/05/25 18:00 08/09/25 06:34 0.625 MG Doxycycline Hyclate 100 ml @ 50 mls/hr Q12H IV 08/06/25 06:00 08/09/25 06:16 50 MLS/HR Enoxaparin Sodium 80 mg Q12HR SC 08/06/25 22:00 08/08/25 23:00 80 MG Spironolactone 50 mg DAILY PO 08/07/25 10:00 08/08/25 09:27 50 MG Laboratory Results Laboratory Tests 08/07/25 07:02 Urinalysis Test 07/30/25 14:04 Urine Color Yellow (Yellow) Urine Clarity Clear (Clear) Urine pH 6.0 (5.0-9.0) Urine Specific [place] 1.024 (1.001-1.035) Urine Protein Trace (Negative) H Urine Ketones Negative (Negative) Urine Blood Negative /uL (Negative) Urine Nitrite Negative (Negative) Urine Bilirubin Negative (Negative) Urine Urobilinogen Normal mg/dL (Negative) Urine Leukocyte Esterase Negative /uL (Negative) Urine RBC 1 /hpf (0 - 4) Urine Microscopic WBC 3 /HPF (0-5) Urine Squamous Epithelial Cells Few /hpf (<5) Urine Bacteria None seen /hpf (None Seen) Urine Mucus Few (None Seen) Urine Glucose Normal mg/dL (Normal) Blood Gas Results Test 08/08/25 11:01 Arterial Blood pH 7.503 (7.350-7.450) FiO2 % 21.0 Microbiology Microbiology Date/Time Source Procedure Growth Status 07/31/25 15:16 Blood Blood Culture - Final NO GROWTH AFTER 5 DAYS OF INCUBATION. Complete 07/30/25 14:04 Voided Urine Urine Culture - Final Complete Labs and/or images reviewed: Labs reviewed by me, Image(s) reviewed by me Assessment/Plan Assessment/Plan 08/08: Patient had plan for home health for home PT yesterday, discharge by Dr. Harper. Patient in agreement with the plan, not interested in hospice at this moment. She has hospice prior for CHF. We will continue with discharge plan. 08/09: Oxygen has been delivered bedside, patient PT recommends needs front wheel walker, we will order. Continue with discharge plan. Patient in good spirits, reading books, 2 L oxygen, we will remove [place] today. Continue with discharge plan. 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
--- NOTE | 2025-08-09 23:34 | DVHPN2 ---
[facility] DOS: 08/09/2025 Patient seen and examined at bedside. Remains on supplemental oxygen Overnight events reviewed. Reviewed: Care Plan, H&P, Labs, Medications, Previous Orders, Radiology Changes from previous H/P or p: No Changes General: Per HPI Eyes: No Pain, No Vision change, No Conjunctivae inflammation, No Eyelid inflammation, No Other, No Redness ENT: No Ear pain, No Ear discharge, No Nose pain, No Nose discharge, No Nose congestion, No Mouth pain, No Mouth swelling, No Throat pain, No Throat swelling, No Other Cardiovascular: No Chest Pain, No Palpitations, No Orthopnea, No Paroxysmal Noc. Dyspnea, No Edema, No Lt Headedness, No Other Respiratory: No Cough, No Dry, No Shortness of breath, No SOB with excertion, No Wheezing, No Hemoptysis, No Pleuritic Pain, No Sputum, No Other Gastrointestinal: No Nausea, No Vomiting, No Abdominal Pain, No Diarrhea, No Constipation, No Melena, No Hematochezia, No Other Genitourinary: No Dysuria, No Frequency, No Incontinence, No Hematuria, No Retention, No Other Musculoskeletal: No other, No neck pain, No shoulder pain, No arm pain, No back pain, No hand pain, No leg pain, No foot pain Skin: No Rash, No Lesions, No Jaundice, No Bruising, No Other Objective Vitals Vital Signs Date Time Temp Pulse Resp B/P (MAP) Pulse Ox O2 Delivery O2 Flow Rate FiO2 08/09/25 13:00 97.9 83 17 111/59 (76) 99 97.9 08/09/25 12:21 Nasal Cannula 1.0 08/09/25 12:21 24 Intake/Output Intake and Output 08/09/25 07:00 Intake Total 1324 ml Output Total 1650 ml Balance -326 ml Intake Oral 280 ml IV Total 250 ml Tube Feeding 794 ml Output Urine Total 1650 ml # Bowel Movements 1 General Appearance: Alert, Oriented X3, Cooperative, No acute distress HEENT: Atraumatic, PERRLA, EOMI, Mucous membr. moist/pink Lungs: Other (rales rt lower lobe) Cardiovascular: Regular rate, Normal S1, Normal S2, No murmurs Abdomen: Normal bowel sounds, Soft, No tenderness, No hepatospenomegaly Medications Current Medications Medications Dose Ordered Sig/Radha Route Start Time Stop Time Status Last Admin Dose Admin Melatonin 5 mg HS PRN PO 08/05/25 16:30 UNV Laboratory Results Laboratory Tests 08/07/25 07:02 Urinalysis Test 07/30/25 14:04 Urine Color Yellow (Yellow) Urine Clarity Clear (Clear) Urine pH 6.0 (5.0-9.0) Urine Specific [place] 1.024 (1.001-1.035) Urine Protein Trace (Negative) H Urine Ketones Negative (Negative) Urine Blood Negative /uL (Negative) Urine Nitrite Negative (Negative) Urine Bilirubin Negative (Negative) Urine Urobilinogen Normal mg/dL (Negative) Urine Leukocyte Esterase Negative /uL (Negative) Urine RBC 1 /hpf (0 - 4) Urine Microscopic WBC 3 /HPF (0-5) Urine Squamous Epithelial Cells Few /hpf (<5) Urine Bacteria None seen /hpf (None Seen) Urine Mucus Few (None Seen) Urine Glucose Normal mg/dL (Normal) Microbiology Microbiology Date/Time Source Procedure Growth Status 07/31/25 15:16 Blood Blood Culture - Final NO GROWTH AFTER 5 DAYS OF INCUBATION. Complete 07/30/25 14:04 Voided Urine Urine Culture - Final Complete Assessment/Plan Assessment/Plan Impression: Acute on chronic hypoxic respiratory failure Chronic hypercarbic respiratory failure Dependence on supplemental oxygen Pleural effusion Atelectasis Pneumonia, likely GNR COPD exacerbation Pulmonary hypertension, RVSP 45 mmHg Events: Remains on supplemental oxygen, 2-3 LPM NC Taper O2 as tolerated. No acute overnight events. Continue bronchodilators Continue IV steroids Continue antibiotics Incentive spirometry Patient is stable for discharge from the pulmonary standpoint. Follow up in Pulmonary Clinic within 2 weeks. CXR on 08/05 showed bilateral pleural effusions, atelectasis, and pulmonary vascular congestion. Echocardiogram reviewed, shows LVEF 30-35%, moderate mitral stenosis, mitral clip and mitral valve, severe tricuspid regurgitation, severe biatrial enlargement, moderate pulmonary hypertension Cardiology recs appreciated Labs and imaging reviewed. Rest of plan as noted below. Plan: Supplemental oxygen Titrate to keep O2 sats above 92%. Maintain euvolemia Monitor renal function. Monitor electrolytes. Supplement as necessary. Monitor ins and outs Continue bronchodilators. Continue antibiotics IV steroids Incentive spirometry On amiodarone PO, therapeutic Lovenox Cardiology recs appreciated DVT prophylaxis. Prognosis: Poor given patient's multiple co-morbidities. Rest of plan per hospitalist and other consultants. Thank you, Dr. Burger, for allowing me to participate in this patient's care. Further recommendations will depend on the patient's clinical course. Please do not hesitate to contact me if you have any questions or concerns. This medical document was created using an electronic medical record system with [employer] dictation system. Although these documentations are being carefully reviewed, there may still be some phonetic and typographical changes. The errors are purely typographical, due to imperfection on the software program, and do not reflect any compromise in the patient's medical care. Plan discussed with: Patient, Other (RN) Visit Coding Pulmonary Billing Provider: FRANCISCO VILLAGRAN MD Date of Service if different f: Aug 09, 2025 Common Visit Codes: [id number] INP/OBS CARE(HIGH) FRANCISCO VILLAGRAN MD Aug 09, 2025 23:33
== END 2025-08-09 14:48 | disposition home health service (06) | DRG 871 ==
LOC: ER 10:54 → EDBD 10:54 → OVERFLOW 15:36 → TELE-EAST 07-31 01:28
PROVIDERS: ADMIT Student in an Organized Health Care Education/Training Program; ATTEND Student in an Organized Health Care Education/Training Program
PROC: 5A09357 Assistance with Respiratory Ventilation, Less than 24 Consecutive Hours, Continuous Positive Airway Pressure (ICD-10-PCS; principal; 2025-08-05)
DX: A41.50 Gram-negative sepsis, unspecified (principal); I50.23 Acute on chronic systolic (congestive) heart failure; J96.21 Acute and chronic respiratory failure with hypoxia; J15.69 Pneumonia due to other Gram-negative bacteria; J15.9 Unspecified bacterial pneumonia; N17.0 Acute kidney failure with tubular necrosis; J96.22 Acute and chronic respiratory failure with hypercapnia; I48.20 Chronic atrial fibrillation, unspecified; E87.3 Alkalosis; I13.0 Hypertensive heart and chronic kidney disease with heart failure and stage 1 through stage 4 chronic kidney disease, or unspecified chronic kidney disease; I48.21 Permanent atrial fibrillation; J44.0 Chronic obstructive pulmonary disease with (acute) lower respiratory infection; J44.1 Chronic obstructive pulmonary disease with (acute) exacerbation; J98.11 Atelectasis; Z68.34 Body mass index [BMI] 34.0-34.9, adult; D64.9 Anemia, unspecified; N18.31 Chronic kidney disease, stage 3a; E66.9 Obesity, unspecified; Z20.822 Contact with and (suspected) exposure to COVID-19; I44.7 Left bundle-branch block, unspecified; E06.3 Autoimmune thyroiditis; E78.5 Hyperlipidemia, unspecified; I25.10 Atherosclerotic heart disease of native coronary artery without angina pectoris; I25.5 Ischemic cardiomyopathy; I27.20 Pulmonary hypertension, unspecified; I73.9 Peripheral vascular disease, unspecified; K58.9 Irritable bowel syndrome, unspecified; I25.2 Old myocardial infarction; Z74.01 Bed confinement status; Z79.01 Long term (current) use of anticoagulants; Z82.3 Family history of stroke; Z82.49 Family history of ischemic heart disease and other diseases of the circulatory system; Z88.5 Allergy status to narcotic agent; Z90.710 Acquired absence of both cervix and uterus; Z95.818 Presence of other cardiac implants and grafts; Z99.81 Dependence on supplemental oxygen; Z90.49 Acquired absence of other specified parts of digestive tract
CPT/HCPCS: 36415; 36600; 71045; 80048; 80053; 80061; 81001; 82306; 82607; 82805; 83036; 83735; 83880; 84100; 84132; 84443; 84484; 85025; 85610; 85730; 87040; 87086; 87426; 93005; 93306; 94640; 94660; 96365; 96375; 97110; 97116; 97163; 97530; 99291; 99292; G0378; J2003; J2405

== ENCOUNTER 2025-09-15 22:45 | Inpatient (IN) | payer OTHER ==
[~2025-09-15] VITALS: Ht 154.9 cm; Wt 81.4 kg
[~2025-09-15 22:45] MED LIST changes: +AMIO200T33 PO; +ASPI1TAB20 PO; -ATOR-507 PO; -AZITTAB PO; +DOXY100C79 PO; -METH4PAK PO; +NITR0.4S29 SL; +ONDA-155 PO; +SPIR25TA PO
[2025-09-15 23:30] VITALS: PULSE 93; RESP 16; O2SAT 97
--- NOTE | 2025-09-15 23:32 | ED.PDOC ---
History of Present Illness HPI Comments Patient is an 84-year-old female with past medical history of heart failure with reduced ejection fraction 30%, COPD on home O2 2 L, asthma, atrial fibrillation not on blood thinners or amiodarone, mitral regurgitation s/p MitraClip placement, STEMI, peripheral vascular disease, ovarian tumor s/p hysterectomy anxiety, who was brought in by EMS due to chest pain. According to EMS, patient was trying to use her walker when she felt like she was stuck in could not communicate with her family across the hallway that is when the chest pain started, she describes the chest pain as dull and denies having similar symptoms in the past, patient notes she took 2 nitroglycerin and 4 aspirins before EMS arrived, her chest pain resolved en route, currently denies any active ongoing chest pain, does note left-sided posterior rib pain that started once she arrived to the ER. EKG en route showed atrial fibrillation and left bundle branch block but did not meet Sgarbossa criteria. On review of systems patient is complaining of dyspnea that has progressed from Functional Class II to Functional Class III, dry cough, constipation and urinary incontinence. Patient is noncompliant with aspirin, amiodarone as well as Eliquis and some of her GDMT, per patient unsure about which medications to take. Chief Complaint: Chest Pain Time Seen by MD: 23:00 Primary Care Provider: Dr. Quan Reviewed Notes: Grounds Supervisor Notes Allergies: Coded Allergies: Caffeine (Verified Allergy, Severe, DIARRHEA, HEADACHES, STOMACH PAINS, 05/01/12) Uncoded Allergies: CODEINE (Allergy, Unknown, 07/30/25) Home Meds Active Scripts Amiodarone Hcl (Amiodarone Hcl) 200 Mg Tab, 200 MG PO BID, #60 TAB Prov:KWAKU BERRY MD 08/07/25 Prednisone (Prednisone) 20 Mg Tab, 20 MG PO DAILY, #10 MG Prov:KWAKU BERRY MD 08/07/25 Spironolactone (Aldactone) 25 Mg Tab, 1 TAB PO DAILY, #30 TAB 5 Refills Prov:KWAKU BERRY MD 08/07/25 Empagliflozin (Jardiance) 10 Mg Tab, 10 MG PO DAILY, #30 TAB Prov:KWAKU BERRY MD 08/07/25 Doxycycline (Monohydrate) (Doxycycline) 100 Mg Cap, 100 MG PO BID, #20 CAP Prov:KWAKU BERRY MD 08/07/25 Apixaban Base (ELIQUIS) 2.5 Mg Tab, 2.5 MG PO BID for 30 Days, #60 TAB 5 Refills Prov:CARLOS BARON MD 11/16/24 Empagliflozin (Jardiance) 10 Mg Tab, 10 MG PO DAILY for 30 Days, #30 TAB 5 Refills Prov:CARLOS BARON MD 11/16/24 Famotidine (PEPCID TABLET) 20 Mg Tb, 1 TAB PO BID, #60 TAB 0 Refills Prov:PERCY HAYES MD 11/12/24 Lisinopril (Lisinopril) 5 Mg Tab, 5 MG PO DAILY for 30 Days, #30 TAB 0 Refills Prov:PERCY HAYES MD 11/12/24 Furosemide (Furosemide) 20 Mg Tab, 20 MG PO DAILY for 30 Days, #30 TAB 0 Refills Prov:PERCY HAYES MD 11/12/24 Carvedilol (COREG) 3.125 Mg Tab, 3.125 MG PO BID for 30 Days, #60 TAB 0 Refills Prov:PERCY HAYES MD 11/12/24 Atorvastatin Calcium (ATORVASTATIN CALCIUM) 20 Mg Tab, 20 MG PO HS for 30 Days, #30 TAB 0 Refills Prov:PRECY HAYES MD 11/12/24 Albuterol Sulfate (Albuterol Sulfate Hfa) 108 Mcg/Act Aer, 216 MCG IN QIDP for 30 Days, #18 GRAMS Prov:CARLOS BARON MD 01/21/24 Potassium Chloride (Potassium Chloride ER) 10 Meq Tab, 1 TAB PO DAILY, #30 TAB Prov:JOJO ESPINAL MD 07/30/23 Ipratropium-Albuterol (Ipratropium [place]/Albut) 1 Delmis Delmis, 1 DELMIS IN BID, #30 ML Prov:JOJO ESPINAL MD 07/30/23 Furosemide (Furosemide) 40 Mg Tab, 1 TAB PO QAM, #30 TAB Prov:JOJO ESPINAL MD 07/30/23 Reported Medications Ondansetron HCl (Ondansetron) 4 Mg Tab, 4 MG PO, TAB 08/01/25 Nitroglycerin (NTROSTAT SUBLINGUAL) 0.4 Mg Sl, 0.4 MG SL PRN, TAB *MAY REPEAT EVERY 5 MINUTES X 3 TOTAL IF NO RELIEF, INITIATE ANALGESIC THERAPY. NOTIFY PHYSICIAN *Do not crush. 08/01/25 Aspirin (Aspir-81) 81 Mg Tab, 1 TAB PO DAILY, #30 TAB 5 Refills 08/01/25 Hydrocodone-Acetaminophen (Hydrocodone Bitartrate/AC 5-325 mg) 1 Tab Tab, 1 TAB PO Q12HR PRN for 15 Days, #30 11/10/24 Guaifenesin (Chest Congestion Relief) 100 Mg/5 Ml Syp, PO 01/16/24 Atorvastatin Calcium (ATORVASTATIN CALCIUM) 40 Mg Tab, 1 TAB PO DAILY 01/16/24 Prednisone (Prednisone) 20 Mg Tab, 1 TAB PO BID 01/16/24 Tiotropium [place] Monohydrate (Spiriva Respimat) 2.5 Mcg/Act Spr, 2 PUFF INH DAILY 01/15/24 Albuterol Sulfate (Albuterol Sulfate Hfa) 108 Mcg/Act Aer, 2 PUFF INH Q4HR PRN 01/15/24 Benzonatate (Benzonatate) 100 Mg Cap, 1 CAP PO TID PRN for FOR COUGH, #30 CAP 01/15/24 Sumatriptan Succinate (Imitrex) 50 Mg Tab, 50 MG PO, TAB 07/29/23 Loperamide Hcl (Loperamide Hcl) 2 Mg Cap, 2 MG PO, MG 07/29/23 Pantoprazole Sodium Sesquihydr (Pantoprazole Sodium) 40 Mg Tab, 1 TAB PO DAILY 07/28/23 Apixaban Base (ELIQUIS) 5 Mg Tab, 1 TAB PO BID 07/28/23 Metoprolol Succinate (Metoprolol Succinate Er) 100 Mg Tab, 1 TAB PO DAILY 07/28/23 Lisinopril (Lisinopril) 20 Mg Tab, 1 TAB PO DAILY 07/28/23 Hydrocodone-Acetaminophen (Hydrocodone Bitartrate/AC 5-325 mg) 1 Tab Tab, 1 TAB PO Q12HR PRN 07/28/23 Information Source: Patient, Emergency Med Personnel Mode of Arrival: EMS Severity: Mild Timing: Hours Duration: Intermittent Prehospital treatment: 12 Lead EKG, ASA, Breathing Tx, NTG Past Medical History PAST MEDICAL HISTORY: AFIB, CHF, COPD, High Lipids, HTN, [place], PAD Past Medical History (Contd): heart failure with reduced ejection fraction 30%, COPD on home O2 2 L, asthma, atrial fibrillation not on blood thinners or amiodarone, mitral regurgitation s/p MitraClip placement, STEMI, peripheral vascular disease, ovarian tumor s/p colectomy, anxiety Surgical History: Cholecystectomy, Hysterectomy NEEDLE GRINDER History: No Pertinent NEEDLE GRINDER History, Unknown Family History Family History: Reviewed,noncontributory to illness, Unknown Social History Smoker: Non-Smoker Alcohol: Denies ETOH Use Drugs: Denies Drug Use Lives In: Home Constitutional: denies: chills, diaphoresis, fatigue, fever, malaise, sweats, weakness, others EENTM: denies: blurred vision, double vision, ear bleeding, ear discharge, ear drainage, ear pain, ear ringing, eye pain, eye redness, hearing loss, mouth pain, mouth swelling, nasal discharge, nose bleeding, nose congestion, nose pain, photophobia, tearing, throat pain, throat swelling, voice changes, others Respiratory: reports: cough, shortness of breath; denies: hemoptysis, orthopn ea, SOB at rest, SOB with excertion, stridor, wheezing, others Cardiovascular: reports: irregular heart beat; denies: chest pain, dizzy spells, diaphoresis, Dyspnea on exertion, edema, left arm pain, lightheadedness, palpitations, PND, syncope, others Gastrointestinal: reports: constipated; denies: abdomen distended, abdominal pain, blood streaked bowels, diarrhea, dysphagia, difficulty swallowing, hematemesis, melena, nausea, poor appetite, poor fluid intake, rectal bleeding, rectal pain, vomiting, others Genitourinary: reports: incontinence; denies: abnormal vagina bleeding, burning, dyspareunia, dysuria, flank pain, frequency, hematuria, pain, , vagina discharge, urgency, others Neurological: denies: dizziness, fainting, headache, left sided numbness, left sided weakness, numbness, paresthesia, pre-existing deficit, right sided numbness, right sided weakness, seizure, speech problems, tingling, tremors, weakness, others Musculoskeletal: denies: back pain, gout, joint pain, joint swelling, muscle pain, muscle stiffness, neck pain, others Integumetry: denies: bruises, change in color, change in hair/nails, dryness, laceration, lesions, lumps, rash, wounds, others Allergic/Immunocompromised: denies: Difficulty Healing, Frequent Infections, Hives, Itching, others Hematologic/Lymphatic: denies: anemia, blood clots, easy bleeding, easy bruising, swollen glands, others Endocrine: denies: excessive hunger, excessive sweating, excessive thirst, excessive urination, flushing, intolerance to cold, intolerance to heat, unexplained weight gain, unexplained weight loss, others Psychiatric: denies: anxiety, bipolar disorder, depression, hopeless, panic disorder, schizophrenia, sleepless, suicidal, others Physical Exam General Appearance: Mild Distress HEENT: Normal ENT Inspection, PERRL/EOMI Neck: Non-Tender, Normal, Normal Inspection Respiratory: Chest Non-Tender, Crackles, Wheezing Cardiovascular: Irregular, Normal Peripheral Pulses Breast Exam: Deferred Gastrointestinal: Non Tender, Normal Bowel Sounds Genitalia: Deferred Pelvic: Deferred Rectal: Rectal Exam not done Extremities: Leg edema, Non-tender, Pedal edema Neurologic: Alert, No Motor Deficits, Normal Mood, No Sensory Deficits Cerebellar Function: Normal Reflexes: NOT DONE Skin: Dry, Normal Color Peripheral Pulses: 2+ dorsalis pedis (R), 2+ dorsalis pedis (L) Lymphatic: NOT DONE Was a procedure done? Was a procedure done?: No EKG EKG : Pulse Rate (adult): 106 [place]: Normal Cardiac Rhythm: Afib Block: None Hypertrophy: None Differential Dx Considerations may include: Acute on chronic systolic heart failure Acute on chronic obstructive pulmonary disease Acute coronary syndrome X-Ray, Labs, Meds, VS Vital Signs Date Time Temp Pulse Resp B/P (MAP) Pulse Ox O2 Delivery O2 Flow Rate FiO2 09/16/25 02:10 81 20 96 09/16/25 02:10 96 Nasal Cannula 3.0 09/16/25 02:10 96 Nasal Cannula* 3 32 09/16/25 02:00 94 23 97/55 (69) 99 09/16/25 01:00 98.3 94 23 100/64 (76) 99 98.3 09/16/25 00:43 104/66 09/16/25 00:00 94 23 104/64 (77) 90 09/16/25 00:00 90 09/15/25 23:37 98.4 96 22 112/63 (79) 99 98.4 09/15/25 23:30 93 16 97 Nasal Cannula* 3 32 09/15/25 22:52 106 09/15/25 22:50 98.2 90 22 108/86 97 98.2 Lab Test 09/16/25 00:30 09/15/25 23:37 Range/Units Troponin I High Sensitivity 25 24 </=34 ng/L White Blood Count 9.0 4.4-10.8 10^3/uL Red Blood Count 3.29 L 4.0-5.20 10^6/uL Hemoglobin 9.4 L 12.2-16.2 g/dL Hematocrit 29.2 L 36.0-46.0 % Mean Corpuscular Volume 88.6 80.0-100.0 fL Mean Corpuscular Hemoglobin 28.5 28.0-32.0 pg Mean Corpuscular Hemoglobin Concent 32.2 32.0-36.0 g/dL Red Cell Distribution Width 16.7 H 11.8-14.3 % Platelet Count 460 H 140-450 10^3/uL Mean Platelet Volume 7.2 6.9-10.8 fL Neutrophils (%) (Auto) 76.7 37.0-80.0 % Lymphocytes (%) (Auto) 8.3 L 10.0-50.0 % Monocytes (%) (Auto) 11.4 0.0-12.0 % Eosinophils (%) (Auto) 2.9 0.0-7.0 % Basophils (%) (Auto) 0.7 0.0-2.0 % Neutrophils # (Auto) 6.9 1.6-8.6 10 ^3/uL Lymphocytes # (Auto) 0.7 0.4-5.4 10 ^3/uL Monocytes # (Auto) 1.0 0-1.3 10 ^3/uL Eosinophils # (Auto) 0.3 0-0.8 10 ^3/uL Basophils # (Auto) 0.1 0-0.2 10 ^3/uL Nucleated Red Blood Cells 0.2 % Sodium Level 141 136-145 mmol/L Potassium Level 3.5 3.5-5.1 mmol/L Chloride Level 101 98-107 mmol/L Carbon Dioxide Level 30 20-31 mmol/L Anion Gap 10 5-15 Blood Urea Nitrogen 19 9-23 mg/dL Creatinine 1.07 H 0.550-1.02 mg/dL Glomerular Filtration Rate Calc 51 >90 mL/min BUN/Creatinine Ratio 17.8 10.0-20.0 Serum Glucose 101 74-106 mg/dL Calcium Level 8.8 8.7-10.4 mg/dL Total Bilirubin 0.6 0.2-1.0 mg/dL Aspartate Amino Transferase (AST) 16 13-40 U/L Alanine Aminotransferase (ALT) 10 7-40 U/L Alkaline Phosphatase 66 46-116 U/L B-Type Natriuretic Peptide 1133.24 0-100 pg/mL Total Protein 5.8 5.7-8.2 g/dL Albumin 3.2 3.2-4.8 g/dL Current Medications Medications (Trade) Dose Ordered Sig/Radha Route Start Time Stop Time Status Last Admin Furosemide (Lasix Injection) 40 mg ONCE ONCE IV 09/15/25 23:45 09/15/25 23:46 DC 09/16/25 00:43 Albuterol (Ventolin Medneb) 2.5 mg Q4HPRN PRN NEB 09/16/25 01:30 09/16/25 02:10 Ipratropium [place] (Atrovent Medneb) 0.5 mg Q4HPRN PRN NEB 09/16/25 01:30 09/16/25 02:10 Time of 1ST Reevaluation: 00:45 Reevaluation 1ST: Unchanged Patient Education/Counseling: Diagnosis, Treatment, Prognosis, Need For Follow Up Family Education/Counseling: No Family Present SEPSIS Sepsis Screen Date sepsis recognized/suspect: Sep 15, 2025 Time Sepsis recognized/suspect: 2249 Recent Procedure: No On Antibiotic Therapy: No Respiratory Rate >20: Yes Heart Rate >90: No Temp<36 C (96.8 F) or >38.3 C: No SBP <90 or MAP <65 mmHG: No New Acute Mental Status Change: No Is the patient on CPAP, BIPAP,: No Physician Orders Chest Portable (09/15/25 23:31) Electrocardigram (09/16/25 01:14) Atorvastatin (Lipitor) (09/16/25 22:00) Famotidine Injection (Pepcid Injection) (09/16/25 10:00) Carvedilol Tablet (Coreg Tablet) (09/16/25 10:00) Amiodarone Tablet (Cordarone Tablet) (09/16/25 10:00) Furosemide Injection (Lasix Injection) (09/16/25 10:00) Albuterol Medneb (Ventolin Medneb) (09/16/25 01:30) Ipratropium Medneb (Atrovent Medneb) (09/16/25 01:30) Allergies (09/16/25 01:29) Code Status (09/16/25 01:29) Sodium Chloride Lock (Saline Lock Ns) (09/16/25 06:00) Oxygen Per Hour (09/16/25:29) Ondansetron Hcl (Zofran) (09/16/25 01:30) Docusate Sodium Capsule (Colace Capsule) (09/16/25 01:30) Fall Risk Precautions In Place QSHIFT (09/16/25 01:29) Complete Blood Count (09/17/25 04:00) Comprehensive Metabolic Panel (09/17/25 04:00) Cardiac Diet-2gna,Lofat,Lochol (09/16/25 Breakfast) Condition: Serious (09/16/25 01:29) Acetaminophen Tablet (Tylenol Tablet) (09/16/25 01:30) Maintain Bed Rest (09/16/25 01:29) Sequential Compression Device (09/16/25 ) Apixaban (Eliquis) (09/16/25 10:00) Vital Signs Date Time Temp Pulse Resp B/P (MAP) Pulse Ox O2 Delivery O2 Flow Rate FiO2 09/16/25 02:10 81 20 96 09/16/25 02:10 96 Nasal Cannula 3.0 09/16/25 02:10 96 Nasal Cannula* 3 32 09/16/25 02:00 94 23 97/55 (69) 99 09/16/25 01:00 98.3 94 23 100/64 (76) 99 98.3 09/16/25 00:43 104/66 09/16/25 00:00 94 23 104/64 (77) 90 09/16/25 00:00 90 09/15/25 23:37 98.4 96 22 112/63 (79) 99 98.4 09/15/25 23:30 93 16 97 Nasal Cannula* 3 32 09/15/25 22:52 106 09/15/25 22:50 98.2 90 22 108/86 97 98.2 Laboratory Tests Test 09/15/25 23:37 White Blood Count 9.0 10^3/uL (4.4-10.8) Medications Medications Dose Ordered Sig/Radha Route Start Time Stop Time Status Last Admin Dose Admin Albuterol 2.5 mg Q4HPRN PRN NEB 09/16/25 01:30 09/16/25 02:10 Furosemide 40 mg ONCE ONCE IV 09/15/25 23:45 09/15/25 23:46 DC 09/16/25 00:43 Ipratropium [place] 0.5 mg Q4HPRN PRN NEB 09/16/25 01:30 09/16/25 02:10 Departure 1 Departure Time of Disposition: 01:00 (84-year-old female with numerous cardiac comorbidities presenting for evaluation of chest pain, shortness of breath which occurred shortly before arrival. Upon arrival the patient's EKG shows her in atrial fibrillation with a rate of 106. In the her discomfort occurred while shows exacerbating itself consider possible atrial fibrillation with rapid ventricular response causing her discomfort. Patient has a heart score of 5, serial troponins obtained remain negative. Patient with known history of heart failure, BNP is over 1100, a chest x-ray was signs of increased pulmonary vascular congestion, symptoms could be related to acute heart failure exacerbation. Patient was given IV Lasix. Patient afebrile here, no critical leukocytosis, not reporting any reason fevers or new cough, clinically does not seem consistent with pneumonia. Given the patient's numerous risk factors we will be admitted for further workup and management.) Impression: Primary Impression: Chest pain Additional Impressions: Shortness of breath Acute on chronic diastolic heart failure Acute exacerbation of chronic obstructive pulmonary disease (COPD) Disposition: ADMITTED INPATIENT Admit to: Tele Condition: Guarded Critical Care Note Critical Care Time?: Yes (35 min-critical care time only) Critical care comment: Patient with numerous cardiac comorbidities with signs of heart failure exacerbation requiring IV Lasix diuresis. Stability Stability form required: No Heart Score Heart Score: Heart Score Response (Comments) Value History Moderate Suspicious 1 EKG Normal 0 Age >65 2 Risk Factors >3 or Hx ASHD 2 Troponin Normal limit 0 Total 5 JOLIE MOURA RESIDENT Sep 15, 2025 23:32 NELL TRENT MD Sep 16, 2025 04:37
[2025-09-15 23:59] LABS: Hematocrit 29.2 % (36.0-46.0); Hemoglobin 9.4 g/dL (12.2-16.2); Mean Corpuscular Hemoglobin 28.5 pg (28.0-32.0); Mean Corpuscular Volume 88.6 fL (80.0-100.0); Nucleated Red Blood Cells % 0.2 %
[2025-09-16] VITALS (17 sets, daily range): BP systolic 101–125; BP diastolic 59–81; PULSE 80–109; RESP 16–22; TEMP 97.6–98.2; O2SAT 95–100
[2025-09-16 00:14] LABS: Alanine Aminotransferase 10 U/L (7-40); Albumin 3.2 g/dL (3.2-4.8); Alkaline Phosphatase 66 U/L (46-116); Anion Gap 10 (5-15); BUN/Creatinine Ratio 17.8 (10.0-20.0); Blood Urea Nitrogen 19 mg/dL (9-23); Calcium 8.8 mg/dL (8.7-10.4); Carbon Dioxide 30 mmol/L (20-31); Chloride 101 mmol/L (98-107); Glucose 101 mg/dL (74-106); Potassium 3.5 mmol/L (3.5-5.1); Sodium 141 mmol/L (136-145); Total Protein 5.8 g/dL (5.7-8.2)
[2025-09-16 00:15] LABS: Bilirubin, Total 0.6 mg/dL (0.2-1.0)
--- NOTE | 2025-09-16 00:30 | DVH ---
CHEST RADIOGRAPH Indication: sob Technique: Single frontal view of the chest was obtained COMPARISON: XY CHEST PORTABLE on DOS: 08/05/25, XY CHEST XRAY 1 VIEW on DOS: 07/31/25, XY CHEST PORTABLE on DOS: 07/30/25, XY CHEST PORTABLE on DOS: 11/15/24, XY CHEST PORTABLE on DOS: 11/11/24 FINDINGS: Lines and Tubes: None Lungs: Moderate diffuse increased prominence of the pulmonary vasculature and mild right basilar pulmonary airspace disease. Pleura: No effusion. No pneumothorax. Cardiomediastinal contours: Cardiomegaly. Bones: Unremarkable IMPRESSION: 1. Cardiomegaly with mild pulmonary vascular congestion and mild right basilar pulmonary airspace disease.
[2025-09-16] MEDS: FUROSEMIDE 40 MG/4 ML VIAL IV ONE (00:43)
[2025-09-16] MEDS ORDERED: ONDANSETRON HCL 4 MG/2 ML VIAL IV PRN ×2 (01:30→11:15)
[2025-09-16] MEDS ORDERED: DOCUSATE SOD 100 MG CAP PO PRN (01:30)
[2025-09-16] MEDS: ALBUTEROL SULF 2.5 MG/0.5ML(0.5%) NEB SOLN NEB PRN (02:10)
[2025-09-16] MEDS: IPRATROPIUM BROM 0.5 MG/2.5ML INH SOL NEB PRN (02:10)
--- NOTE | 2025-09-16 02:20 | DVHHP2 ---
History of Present Illness Reason for Visit: Acute on chronic systolic (congestive) heart failure History of Present Illness The patient is a 84-year-old female hard of hearing with multiple past medical history including COPD, CHF, atrial fibrillation, hyperlipidemia, WA, and hypertension who presented to [facility] ED with complaint of chest pain. Patient reports that she has been experiencing substernal chest pain, describes as dull, rating 5/10 numeric scale, associated with shortness of breaths, dyspnea, and dry cough, so EMS were called. Patient states that she was trying to use her walker when she felt like she was stuck in could not communicate with her family across the hallway that is when the chest pain started; she took 2 nitroglycerin and 4 aspirins before EMS arrived; EKG en route showed atrial fibrillation and left bundle branch block. Patient was seen and evaluated in the ED, laboratory data shows WBC 9.0, hemoglobin 9.4, hemat ocrit 29.2, platelets 460, sodium 141, potassium 3.5, BUN 19, creatinine 1.07, GFR 51, glucose 101, calcium 8.8, troponin 24, BNP 1133.24, blood pressure 104/54, heart rate 90, temperature 98.4 F, O2 saturation 96% on oxygen. Chest x-ray revealing cardiomegaly with mild pulmonary vascular congestion and mild right basilar pulmonary airspace disease. Patient was started on IV Lasix, please see medication orders section in the computer. On my assessment, patient denied chest pain at this moment, no headache, dizziness, diaphoresis, currently on oxygen, no abdominal pain, diarrhea, nausea, vomiting, fever, no chills. Patient was admitted for further evaluation and medical management. Past Medical History Anxiety, Mitral regurgitation, Asthma, AFIB, CHF EF 30%, COPD, High Lipids, HTN, WA, PAD, STEMI, PVD, Ovarian tumor Past Surgical History Cholecystectomy, Hysterectomy, MitraClip placement, Colectomy Family History Reviewed, noncontributory to the management of this case. Past Social History The patient lives at home, denies smoking, alcohol or illicit drugs abuse. Review of Systems Constitutional: Yes: Weakness; No: Fever, Chills, Sweats, Malaise, Other Eyes: No: Pain, Vision change, Conjunctivae inflammation, Eyelid inflammation, Other, Redness ENT: No: Ear pain, Ear discharge, Nose pain, Nose discharge, Nose congestion, Mouth pain, Mouth swelling, Throat pain, Throat swelling, Other Respiratory: No: Cough, Dry, Shortness of breath, SOB with excertion, Wheezing, Hemoptysis, Pleuritic Pain, Sputum, Wheezing, Other Cardiovascular: Other (Irregular heartbeats); No: Chest Pain, Palpitations, Orthopnea, Paroxysmal Noc. Dyspnea, Edema, Lt Headedness Gastrointestinal: Constipation; No: Nausea, Vomiting, Abdominal Pain, Diarrhea, Melena, Hematochezia, Other Genitourinary: No Dysuria, No Frequency; Incontinence; No Hematuria, No Retention, No Other Musculoskeletal: No: other, neck pain, shoulder pain, arm pain, back pain, hand pain, leg pain, foot pain Skin: No: Rash, Lesions, Jaundice, Bruising, Other Neurological: No: Weakness, Numbness, Incoordination, Change in speech, Confusion, Seizures, Other Allergies: Coded Allergies: Caffeine (Verified Allergy, Severe, DIARRHEA, HEADACHES, STOMACH PAINS, 05/01/12) Uncoded Allergies: CODEINE (Allergy, Unknown, 07/30/25) Medications Current Medications Medications Dose Ordered Sig/Radha Route Start Time Stop Time Status Last Admin Dose Admin Atorvastatin Calcium 20 mg HS PO 09/16/25 22:00 Famotidine 20 mg DAILY IV 09/16/25 10:00 Carvedilol 3.125 mg Q12HR PO 09/16/25 10:00 Amiodarone HCl 200 mg DAILY PO 09/16/25 10:00 Furosemide 40 mg DAILY IV 09/16/25 10:00 Albuterol 2.5 mg Q4HPRN PRN NEB 09/16/25 01:30 09/16/25 02:10 2.5 MG Ipratropium [place] 0.5 mg Q4HPRN PRN NEB 09/16/25 01:30 09/16/25 02:10 0.5 MG Sodium Chloride 10 ml Q8HR IV 09/16/25 06:00 Ondansetron HCl 4 mg Q4HP PRN IV 09/16/25 01:30 Docusate Sodium 100 mg BIDPRN PRN PO 09/16/25 01:30 Acetaminophen 650 mg Q6HP PRN PO 09/16/25 01:30 Apixaban 2.5 mg BID PO 09/16/25 10:00 Exam Vital Signs Vital Signs Date Time Temp Pulse Resp B/P (MAP) Pulse Ox O2 Delivery O2 Flow Rate FiO2 09/16/25 02:10 81 20 96 09/16/25 02:10 Nasal Cannula 3.0 09/16/25 02:10 32 09/16/25 00:43 104/66 09/15/25 23:37 98.4 98.4 General Appearance: Alert, Oriented X3, Cooperative, No acute distress HEENT: Atraumatic, PERRLA, EOMI, Mucous membr. moist/pink Respiratory: Normal air movement Cardiovascular: Regular rate, Normal S1, Normal S2, No murmurs Abdominal: Normal bowel sounds, Soft, No tenderness, No hepatospenomegaly, No masses Extremities: No clubbing, No cyanosis, No edema, Normal pulses, No tenderness/swelling Skin: No rashes, No significant lesion Neuro: Normal speech, Normal tone, Sensation intact, Cranial nerves 3-12 NL, Reflexes 2+, Other (Generalized weakness) Psych/Mental Status: Mental status NL, Mood NL Labs/Xrays Labs Test 09/16/25 00:30 09/15/25 23:37 Range/Units Troponin I High Sensitivity 25 </=34 ng/L White Blood Count 9.0 4.4-10.8 10^3/uL Red Blood Count 3.29 L 4.0-5.20 10^6/uL Hemoglobin 9.4 L 12.2-16.2 g/dL Hematocrit 29.2 L 36.0-46.0 % Mean Corpuscular Volume 88.6 80.0-100.0 fL Mean Corpuscular Hemoglobin 28.5 28.0-32.0 pg Mean Corpuscular Hemoglobin Concent 32.2 32.0-36.0 g/dL Red Cell Distribution Width 16.7 H 11.8-14.3 % Platelet Count 460 H 140-450 10^3/uL Mean Platelet Volume 7.2 6.9-10.8 fL Neutrophils (%) (Auto) 76.7 37.0-80.0 % Lymphocytes (%) (Auto) 8.3 L 10.0-50.0 % Monocytes (%) (Auto) 11.4 0.0-12.0 % Eosinophils (%) (Auto) 2.9 0.0-7.0 % Basophils (%) (Auto) 0.7 0.0-2.0 % Neutrophils # (Auto) 6.9 1.6-8.6 10 ^3/uL Lymphocytes # (Auto) 0.7 0.4-5.4 10 ^3/uL Monocytes # (Auto) 1.0 0-1.3 10 ^3/uL Eosinophils # (Auto) 0.3 0-0.8 10 ^3/uL Basophils # (Auto) 0.1 0-0.2 10 ^3/uL Nucleated Red Blood Cells 0.2 % Sodium Level 141 136-145 mmol/L Potassium Level 3.5 3.5-5.1 mmol/L Chloride Level 101 98-107 mmol/L Carbon Dioxide Level 30 20-31 mmol/L Anion Gap 10 5-15 Blood Urea Nitrogen 19 9-23 mg/dL Creatinine 1.07 H 0.550-1.02 mg/dL Glomerular Filtration Rate Calc 51 >90 mL/min BUN/Creatinine Ratio 17.8 10.0-20.0 Serum Glucose 101 74-106 mg/dL Calcium Level 8.8 8.7-10.4 mg/dL Total Bilirubin 0.6 0.2-1.0 mg/dL Aspartate Amino Transferase (AST) 16 13-40 U/L Alanine Aminotransferase (ALT) 10 7-40 U/L Alkaline Phosphatase 66 46-116 U/L B-Type Natriuretic Peptide 1133.24 0-100 pg/mL Total Protein 5.8 5.7-8.2 g/dL Albumin 3.2 3.2-4.8 g/dL PATIENT: JIMBO JHAVERI ACCT: [id number] UNIT: [id number] : 1940 LOC: ER ROOM / BED: / AGE / SEX: 84 / F ADM STATUS: REG ER SERVICE 2331 ORDERING PHYSICIAN: JOLIE MOURA RESIDENT PROCEDURE(s): CXRP - CHEST PORTABLE REASON: sob ORDER NUMBER(s): [id number], ACCESSION NUMBER(s): [id number] CHEST RADIOGRAPH Indication: sob Technique: Single frontal view of the chest was obtained COMPARISON: XY CHEST PORTABLE on DOS: 08/05/25, XY CHEST XRAY 1 VIEW on DOS: 07/31/25, XY CHEST PORTABLE on DOS: 07/30/25, XY CHEST PORTABLE on DOS: 11/15/24, XY CHEST PORTABLE on DOS: 11/11/24 FINDINGS: Lines and Tubes: None Lungs: Moderate diffuse increased prominence of the pulmonary vasculature and mild right basilar pulmonary airspace disease. Pleura: No effusion. No pneumothorax. Cardiomediastinal contours: Cardiomegaly. Bones: Unremarkable IMPRESSION: 1. Cardiomegaly with mild pulmonary vascular congestion and mild right basilar pulmonary airspace disease. SEPSIS Sepsis Screen Date sepsis recognized/suspect: Sep 16, 2025 Time Sepsis recognized/suspect: 24 Recent Procedure: No On Antibiotic Therapy: No Respiratory Rate >20: Yes Heart Rate >90: No Temp<36 C (96.8 F) or >38.3 C: No SBP <90 or MAP <65 mmHG: No New Acute Mental Status Change: No Is the patient on CPAP, BIPAP,: No Physician Orders Chest Portable (09/15/25 23:31) Troponin-I Hs (09/16/25 02:31) Electrocardigram (09/16/25 01:14) Complete Blood Count (09/16/25 01:29) Comprehensive Metabolic Panel (09/16/25 01:29) Atorvastatin (Lipitor) (09/16/25 22:00) Famotidine Injection (Pepcid Injection) (09/16/25 10:00) Carvedilol Tablet (Coreg Tablet) (09/16/25 10:00) Amiodarone Tablet (Cordarone Tablet) (09/16/25 10:00) Type And Screen (09/16/25 01:29) Furosemide Injection (Lasix Injection) (09/16/25 10:00) Albuterol Medneb (Ventolin Medneb) (09/16/25 01:30) Ipratropium Medneb (Atrovent Medneb) (09/16/25 01:30) Allergies (09/16/25 01:29) Code Status (09/16/25 01:29) Sodium Chloride Lock (Saline Lock Ns) (09/16/25 06:00) Oxygen Per Hour (09/16/25 01:29) Ondansetron Hcl (Zofran) (09/16/25 01:30) Docusate Sodium Capsule (Colace Capsule) (09/16/25 01:30) Fall Risk Precautions In Place QSHIFT (09/16/25 01:29) Complete Blood Count (09/17/25 04:00) Comprehensive Metabolic Panel (09/17/25 04:00) Cardiac Diet-2gna,Lofat,Lochol (09/16/25 Breakfast) Condition: Serious (09/16/25 01:29) Acetaminophen Tablet (Tylenol Tablet) (09/16/25 01:30) Maintain Bed Rest (09/16/25 01:29) Sequential Compression Device (09/16/25 ) Apixaban (Eliquis) (09/16/25 10:00) Vital Signs Date Time Temp Pulse Resp B/P (MAP) Pulse Ox O2 Delivery O2 Flow Rate FiO2 09/16/25 02:10 81 20 96 09/16/25 02:10 96 Nasal Cannula 3.0 09/16/25 02:10 96 Nasal Cannula* 3 32 09/16/25 00:43 104/66 09/16/25 00:00 94 23 104/64 (77) 90 09/16/25 00:00 90 09/15/25 23:37 98.4 96 22 112/63 (79) 99 98.4 09/15/25 23:30 93 16 97 Nasal Cannula* 3 32 09/15/25 22:52 106 09/15/25 22:50 98.2 90 22 108/86 97 98.2 Laboratory Tests Test 09/15/25 23:37 White Blood Count 9.0 10^3/uL (4.4-10.8) Medications Medications Dose Ordered Sig/Radha Route Start Time Stop Time Status Last Admin Dose Admin Albuterol 2.5 mg Q4HPRN PRN NEB 09/16/25 01:30 09/16/25 02:10 2.5 MG Furosemide 40 mg ONCE ONCE IV 09/15/25 23:45 09/15/25 23:46 DC 09/16/25 00:43 40 MG Ipratropium [place] 0.5 mg Q4HPRN PRN NEB 09/16/25 01:30 09/16/25 02:10 0.5 MG Assessment/Plan Assessment/Plan Acute on chronic systolic congestive heart failure Atrial fibrillation Acute chest pain COPD with acute exacerbation Generalized weakness Plan 1. Admit to telemetry unit 2. Breathing treatment 3. Pain control management 4. Management of fluids and electrolytes 5. Consultation for hospitalist 6. Diagnostic tests chest x-ray 7. DVT prophylaxis-on Eliquis 8. Repeat labs CBC, CMP in a.m. 9. Continue with current medical management 10. Treatment plan discussed with patient and RN. Patient verbalized understanding. Plan discussed with: Patient, Other (RN) My Orders Orders - VIJI LIPSCOMB DNP Procedure Category Date Status Time Complete Blood Count LAB 09/16/25 Logged 01:29 Comprehensive LAB 09/16/25 Logged Metabolic Panel 01:29 Atorvastatin (Lipitor) PHA 09/16/25 In Process 22:00 Famotidine Injection PHA 09/16/25 In Process (Pepcid Injection) 10:00 Carvedilol Tablet PHA 09/16/25 In Process (Coreg Tablet) 10:00 Amiodarone Tablet PHA 09/16/25 In Process (Cordarone Tablet) 10:00 Type And Screen BBK 09/16/25 Logged 01:29 Furosemide Injection PHA 09/16/25 In Process (Lasix Injection) 10:00 Albuterol Medneb PHA 09/16/25 In Process (Ventolin Medneb) 01:30 Ipratropium Medneb PHA 09/16/25 In Process (Atrovent Medneb) 01:30 Allergies KATRINA 09/16/25 In Process 01:29 Code Status CODE 09/16/25 Transmitted 01:29 Sodium Chloride Lock PHA 09/16/25 In Process (Saline Lock Ns) 06:00 Oxygen Per Hour RT 09/16/25 Transmitted 01:29 Ondansetron Hcl PHA 09/16/25 In Process (Zofran) 01:30 Docusate Sodium PHA 09/16/25 In Process Capsule (Colace 01:30 Fall Risk Precautions KATRINA 09/16/[address] 01:29 Complete Blood Count LAB 09/17/25 Verified 04:00 Comprehensive LAB 09/17/25 Verified Metabolic Panel 04:00 Cardiac DIET 09/16/25 Transmitted Diet-2gna,Lofat,Lochol Breakfast Condition: Serious KATRINA 09/16/25 In Process 01:29 Acetaminophen Tablet PHA 09/16/25 In Process (Tylenol Tablet) 01:30 Maintain Bed Rest KATRINA 09/16/25 In Process 01:29 Sequential KATRINA 09/16/25 In Process Compression Device Apixaban (Eliquis) PHA 09/16/25 In Process 10:00 Problem List: (1) Acute on chronic systolic (congestive) heart failure (2) Acute chest pain (3) Atrial fibrillation (4) COPD with acute exacerbation (5) Generalized weakness Date of Service: Sep 16, 2025 Billing Provider: VIJI LIPSCOMB DNP Common Visit Codes: [id number] INP/OBS CARE (HIGH) VIJI LIPSCOMB DNP Sep 16, 2025 02:20
[2025-09-16] MEDS ORDERED: MORPHINE SULFATE INJ 2 MG/ml SYRG IV PRN (02:30)
[2025-09-16] MEDS ORDERED: NITROGLYCERIN 0.4 MG SL TAB SL PRN (02:30)
[2025-09-16 02:39] LABS: Nucleated Red Blood Cells % 0.1 %
[2025-09-16 02:41] LABS: Hematocrit 29.7 % (36.0-46.0); Hemoglobin 9.6 g/dL (12.2-16.2); Mean Corpuscular Hemoglobin 28.9 pg (28.0-32.0); Mean Corpuscular Volume 88.9 fL (80.0-100.0)
[2025-09-16 02:56] LABS: Alanine Aminotransferase 13 U/L (7-40); Albumin 3.2 g/dL (3.2-4.8); Alkaline Phosphatase 68 U/L (46-116); Anion Gap 11 (5-15); BUN/Creatinine Ratio 17.4 (10.0-20.0); Blood Urea Nitrogen 19 mg/dL (9-23); Calcium 8.9 mg/dL (8.7-10.4); Chloride 101 mmol/L (98-107); Glucose 97 mg/dL (74-106); Sodium 143 mmol/L (136-145); Total Protein 5.9 g/dL (5.7-8.2)
[2025-09-16 02:57] LABS: Bilirubin, Total 0.6 mg/dL (0.2-1.0)
[2025-09-16 02:58] LABS: Carbon Dioxide 31 mmol/L (20-31); Potassium 3.2 mmol/L (3.5-5.1)
[2025-09-16] MEDS: SODIUM CHLOR 0.9% PF (SALINE LOCK) 10ML VIAL/SYR IV SCH (06:03)
[2025-09-16] MEDS: AMIODARONE HCL 200 MG TAB PO SCH (10:00)
[2025-09-16] MEDS: APIXABAN 2.5 MG TAB PO SCH (10:00)
[2025-09-16] MEDS: CARVEDILOL 3.125 MG TAB PO SCH (10:00)
[2025-09-16] MEDS: FAMOTIDINE (10MG/ML) 2ML VL IV SCH (10:00)
[2025-09-16] MEDS ORDERED: FUROSEMIDE 40 MG/4 ML VIAL IV SCH (10:00)
--- NOTE | 2025-09-16 10:10 | ECG ---
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
[2025-09-16] MEDS: methylPREDNISolone SOD SUCC 125 MG/2 ML VL IV ONE (11:15)
[2025-09-16] MEDS ORDERED: ALBUTEROL SULF 2.5 MG/0.5ML(0.5%) NEB SOLN NEB ONE (11:30)
[2025-09-16] MEDS ORDERED: IPRATROPIUM BROM 0.5 MG/2.5ML INH SOL NEB ONE (11:30)
--- NOTE | 2025-09-16 13:26 | DVHPN2 ---
Subjective 84-year-old female with a history of COPD on home O2 and CHF came with shortness of breaths and edema in her legs Her echocardiogram 2 months ago showed EF of 30-35% Changes from previous H/P or p: Changes Eyes: No Pain, No Vision change, No Conjunctivae inflammation, No Eyelid inflammation, No Other, No Redness ENT: No Ear pain, No Ear discharge, No Nose pain, No Nose discharge, No Nose congestion, No Mouth pain, No Mouth swelling, No Throat pain, No Throat swelling, No Other Cardiovascular: No Chest Pain, No Palpitations, No Orthopnea, No Paroxysmal Noc. Dyspnea, No Edema, No Lt Headedness; Other (Irregular heartbeats) Respiratory: No Cough, No Dry, No Shortness of breath, No SOB with excertion, No Wheezing, No Hemoptysis, No Pleuritic Pain, No Sputum, No Other Gastrointestinal: No Nausea, No Vomiting, No Abdominal Pain, No Diarrhea; C onstipation; No Melena, No Hematochezia, No Other Genitourinary: No Dysuria, No Frequency; Incontinence; No Hematuria, No Retention, No Other Musculoskeletal: No other, No neck pain, No shoulder pain, No arm pain, No back pain, No hand pain, No leg pain, No foot pain Skin: No Rash, No Lesions, No Jaundice, No Bruising, No Other Objective Vitals Vital Signs Date Time Temp Pulse Resp B/P (MAP) Pulse Ox O2 Delivery O2 Flow Rate FiO2 09/16/25 12:30 85 19 99 09/16/25 12:24 Nasal Cannula* 3 32 09/16/25 09:00 98.0 113/81 (92) 98.0 General Appearance: Alert, Oriented X3, Cooperative, mild distress Lungs: Other (Bilateral crackles especially at the bases) Cardiovascular: Regular rate, Normal S1, Normal S2, No murmurs Abdomen: Normal bowel sounds, Soft, No tenderness Extremities: Other (2+ edema bilaterally) Medications Current Medications Medications Dose Ordered Sig/Radha Route Start Time Stop Time Status Last Admin Dose Admin Atorvastatin Calcium 20 mg HS PO 09/16/25 22:00 Famotidine 20 mg DAILY IV 09/16/25 10:00 Carvedilol 3.125 mg Q12HR PO 09/16/25 10:00 Amiodarone HCl 200 mg DAILY PO 09/16/25 10:00 Albuterol 2.5 mg Q4HPRN PRN NEB 09/16/25 01:30 09/16/25 12:24 2.5 MG Ipratropium [place] 0.5 mg Q4HPRN PRN NEB 09/16/25 01:30 09/16/25 12:24 0.5 MG Sodium Chloride 10 ml Q8HR IV 09/16/25 06:00 09/16/25 06:03 10 ML Docusate Sodium 100 mg BIDPRN PRN PO 09/16/25 01:30 Acetaminophen 650 mg Q6HP PRN PO 09/16/25 01:30 Apixaban 2.5 mg BID PO 09/16/25 10:00 Nitroglycerin 0.4 mg Q5MINP PRN SL 09/16/25 02:30 Morphine Sulfate 2 mg Q30M PRN IV 09/16/25 02:30 Ondansetron HCl 4 mg Q4HPRN PRN IV 09/16/25 11:15 Methylprednisolone Sodium Succinate 40 mg BID IV 09/16/25 22:00 Furosemide 40 mg BIDD IV 09/16/25 18:00 Albuterol 2.5 mg Q4HR NEB 09/16/25 14:00 Cancel Ipratropium [place] 0.5 mg Q4HR NEB 09/16/25 14:00 Cancel Laboratory Results Laboratory Tests 09/16/25 02:21 Chemistry Test 09/15/25 23:37 09/16/25 02:21 Albumin 3.2 g/dL (3.2-4.8) 3.2 g/dL (3.2-4.8) Calcium Level 8.8 mg/dL (8.7-10.4) 8.9 mg/dL (8.7-10.4) Total Protein 5.8 g/dL (5.7-8.2) 5.9 g/dL (5.7-8.2) Cardiac Markers Test 09/15/25 23:37 B-Type Natriuretic Peptide 1133.24 pg/mL (0-100) LFT Test 09/15/25 23:37 09/16/25 02:21 Alanine Aminotransferase (ALT) 10 U/L (7-40) 13 U/L (7-40) Alkaline Phosphatase 66 U/L (46-116) 68 U/L (46-116) Aspartate Amino Transferase (AST) 16 U/L (13-40) 27 U/L (13-40) Total Bilirubin 0.6 mg/dL (0.2-1.0) 0.6 mg/dL (0.2-1.0) Assessment/Plan Assessment/Plan Acute hypoxic respiratory failure Acute on chronic heart failure with reduced ejection fraction COPD Chronic respiratory failure on home O2 Right ankle sprain rule out fracture Atrial fibrillation on Eliquis History of asthma Mixed hyperlipidemia Hypertension Peripheral vascular disease History of STEMI and coronary artery disease History of ovarian tumor Hypokalemia Chronic anemia Plan IV Lasix 40 mg twice a day Med neb treatments as needed IV steroids Replace potassium Oxygen as needed Continue amiodarone 200 mg daily Continue Eliquis 2.5 mg twice a day, the patient says she does not want to take it since she is also complaining of blood in his stools whenever she takes it and therefore she has not been taking it at home Monitor closely Full code Plan discussed with: Patient My Orders Orders - CARLOS BARON MD Procedure Category Date Status Time Ondansetron Hcl PHA 09/16/25 In Process (Zofran) 11:15 Methylprednisolone PHA 09/16/25 In Process Sod Succ (Solu Medrol 22:00 Furosemide Injection PHA 09/16/25 In Process (Lasix Injection) 18:00 R Ankle 2 View Xray XY 09/16/25 Transmitted 13:22 Pt Request For Service PT 09/16/25 Transmitted 13:22 Date of Service: Sep 16, 2025 Billing Provider: CARLOS BARON MD Common Visit Codes: NOT BILLABLE CARLOS BARON MD Sep 16, 2025 13:26
[2025-09-16] MEDS ORDERED: IPRATROPIUM BROM 0.5 MG/2.5ML INH SOL NEB SCH (14:00)
[2025-09-16] MEDS ORDERED: ALBUTEROL SULF 2.5 MG/0.5ML(0.5%) NEB SOLN NEB SCH (14:00)
--- NOTE | 2025-09-16 16:31 | DVH ---
CLINICAL INDICATION: trauma TECHNIQUE: 2 radiographic views of the right ankle were obtained. Comparison: None FINDINGS/IMPRESSION: Massive edema and soft tissue swelling in the right ankle. Dorsal and plantar calcaneal enthesophytes.
--- NOTE | 2025-09-16 16:32 | DVH ---
CLINICAL INDICATION: Right foot bruising, present upon admission TECHNIQUE: 3 radiographic views of the right foot were obtained. Comparison: None FINDINGS/IMPRESSION: No acute fractures or dislocations are seen. No radiopaque foreign bodies.
[2025-09-16] MEDS: FUROSEMIDE 40 MG/4 ML VIAL IV SCH (18:00)
[2025-09-16] MEDS: ATORVASTATIN 20 MG TAB PO SCH (20:58)
[2025-09-16] MEDS: methylPREDNISolone SOD SUCC 40 MG/ML VL IV SCH (21:01)
[2025-09-16] MEDS: ACETAMINOPHEN 325 MG TAB PO PRN (21:10)
[2025-09-17] VITALS (14 sets, daily range): BP systolic 91–118; BP diastolic 55–63; PULSE 77–92; RESP 16–19; TEMP 97.5–98.4; O2SAT 90–100
[2025-09-17 08:03] LABS: Hematocrit 30.3 % (36.0-46.0); Hemoglobin 9.7 g/dL (12.2-16.2); Mean Corpuscular Hemoglobin 28.2 pg (28.0-32.0); Mean Corpuscular Volume 88.1 fL (80.0-100.0); Nucleated Red Blood Cells % 0.0 %
[2025-09-17 08:54] LABS: Alanine Aminotransferase 12 U/L (7-40); Alkaline Phosphatase 60 U/L (46-116); Anion Gap 11 (5-15); BUN/Creatinine Ratio 21.9 (10.0-20.0); Blood Urea Nitrogen 23 mg/dL (9-23); Calcium 9.0 mg/dL (8.7-10.4); Carbon Dioxide 34 mmol/L (20-31); Chloride 101 mmol/L (98-107); Glucose 144 mg/dL (74-106); Magnesium 2.2 mg/dL (1.6-2.6); Potassium 3.3 mmol/L (3.5-5.1); Sodium 146 mmol/L (136-145); Total Protein 5.5 g/dL (5.7-8.2)
[2025-09-17 08:56] LABS: Albumin 3.1 g/dL (3.2-4.8); Bilirubin, Total 0.8 mg/dL (0.2-1.0)
--- NOTE | 2025-09-17 17:37 | DVHPN2 ---
Subjective Patient is here for COPD and CHF exacerbation, stated that she has 10-20% better. Changes from previous H/P or p: No Changes Eyes: No Pain, No Vision change, No Conjunctivae inflammation, No Eyelid inflammation, No Other, No Redness ENT: No Ear pain, No Ear discharge, No Nose pain, No Nose discharge, No Nose congestion, No Mouth pain, No Mouth swelling, No Throat pain, No Throat swelling, No Other Cardiovascular: No Chest Pain, No Palpitations, No Orthopnea, No Paroxysmal Noc. Dyspnea, No Edema, No Lt Headedness; Other (Irregular heartbeats) Respiratory: No Cough, No Dry, No Shortness of breath, No SOB with excertion, No Wheezing, No Hemoptysis, No Pleuritic Pain, No Sputum, No Other Gastrointestinal: No Nausea, No Vomiting, No Abdominal Pain, No Diarrhea; C onstipation; No Melena, No Hematochezia, No Other Genitourinary: No Dysuria, No Frequency; Incontinence; No Hematuria, No Retention, No Other Musculoskeletal: No other, No neck pain, No shoulder pain, No arm pain, No back pain, No hand pain, No leg pain, No foot pain Skin: No Rash, No Lesions, No Jaundice, No Bruising, No Other Objective Vitals Vital Signs Date Time Temp Pulse Resp B/P (MAP) Pulse Ox O2 Delivery O2 Flow Rate FiO2 09/17/25 13:21 99 Nasal Cannula* 3 32 09/17/25 13:21 83 17 09/17/25 13:00 97.5 103/62 (76) 97.5 Intake/Output Intake and Output 09/17/25 07:00 Intake Total 980 ml Output Total 301 ml Balance 679 ml Intake Oral 980 ml Output Urine Total 300 ml Stool Total 1 ml # Voids 2 # Bowel Movements 4 Exam HEENT pupils are reactive Neck is supple CV is S1-S2 regular rate and rhythm Diminished breath sounds bases GI positive bowel sounds Extremity no edema [employer] no motor deficit General Appearance: Alert, Oriented X3, Cooperative, mild distress Lungs: Other (Bilateral crackles especially at the bases) Cardiovascular: Regular rate, Normal S1, Normal S2, No murmurs Abdomen: Normal bowel sounds, Soft, No tenderness Extremities: Other (2+ edema bilaterally) Medications Current Medications Medications Dose Ordered Sig/Radha Route Start Time Stop Time Status Last Admin Dose Admin Atorvastatin Calcium 20 mg HS PO 09/16/25 22:00 09/16/25 20:58 20 MG Famotidine 20 mg DAILY IV 09/16/25 10:00 09/17/25 09:09 20 MG Carvedilol 3.125 mg Q12HR PO 09/16/25 10:00 09/17/25 09:08 3.125 MG Amiodarone HCl 200 mg DAILY PO 09/16/25 10:00 09/17/25 09:08 200 MG Albuterol 2.5 mg Q4HPRN PRN NEB 09/16/25 01:30 09/17/25 13:21 2.5 MG Ipratropium [place] 0.5 mg Q4HPRN PRN NEB 09/16/25 01:30 09/17/25 13:21 0.5 MG Sodium Chloride 10 ml Q8HR IV 09/16/25 06:00 09/17/25 14:00 10 ML Docusate Sodium 100 mg BIDPRN PRN PO 09/16/25 01:30 Acetaminophen 650 mg Q6HP PRN PO 09/16/25 01:30 09/16/25 21:10 650 MG Apixaban 2.5 mg BID PO 09/16/25 10:00 Nitroglycerin 0.4 mg Q5MINP PRN SL 09/16/25 02:30 Morphine Sulfate 2 mg Q30M PRN IV 09/16/25 02:30 Ondansetron HCl 4 mg Q4HPRN PRN IV 09/16/25 11:15 Methylprednisolone Sodium Succinate 40 mg BID IV 09/16/25 22:00 09/17/25 09:09 40 MG Furosemide 40 mg BIDD IV 09/16/25 18:00 09/17/25 05:11 40 MG Albuterol 2.5 mg Q4HR NEB 09/16/25 14:00 Cancel Ipratropium [place] 0.5 mg Q4HR NEB 09/16/25 14:00 Cancel Laboratory Results Laboratory Tests 09/17/25 06:24 Chemistry Test 09/17/25 06:24 Albumin 3.1 g/dL (3.2-4.8) L Calcium Level 9.0 mg/dL (8.7-10.4) Magnesium Level 2.2 mg/dL (1.6-2.6) Total Protein 5.5 g/dL (5.7-8.2) L LFT Test 09/17/25 06:24 Alanine Aminotransferase (ALT) 12 U/L (7-40) Alkaline Phosphatase 60 U/L (46-116) Aspartate Amino Transferase (AST) 16 U/L (13-40) Total Bilirubin 0.8 mg/dL (0.2-1.0) Assessment/Plan Assessment/Plan 84-year-old female presented to the hospital with a bilateral leg swelling and shortness of breaths found to have 1. Acute on chronic hypoxic respiratory failure secondary to acute CHF and acute COPD exacerbation 2. Acute COPD exacerbation 3. Acute on chronic CHF exacerbation with a systolic heart failure 4. Chronic AFib currently on Eliquis 5. Acute bronchitis/bilateral airspace disease in lower -and IV antibiotics, continue breathing treatment, Solu-Medrol, IV diuretics -plan of care discussed with the patient who understand and agreeable to plan. Plan discussed with: Patient Problem List: (1) Acute bronchitis (2) CHF exacerbation (3) Acute exacerbation of chronic obstructive pulmonary disease (COPD) Date of Service: Sep 17, 2025 Billing Provider: NU YOUNG MD Common Visit Codes: [id number] INP/OBS CARE(HIGH) NU YOUNG MD Sep 17, 2025 17:37
[2025-09-17] MEDS ORDERED: AZITHROMYCIN 500MG/250ML 250 ML IV ONE (17:45)
[2025-09-18] VITALS (18 sets, daily range): BP systolic 95–118; BP diastolic 52–84; PULSE 82–94; RESP 16–20; TEMP 97–98.1; O2SAT 97–100
[2025-09-18] MEDS ORDERED: AZITHROMYCIN 500MG/250ML 250 ML IV SCH (10:00)
--- NOTE | 2025-09-18 13:29 | ECG ---
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
[2025-09-18] MEDS: POTASSIUM EFFERVESENT TAB 25 MEQ PO ONE (13:34)
[2025-09-18] MEDS: HYDROcodone-ACET 5/325MG TAB PO PRN (16:00)
[2025-09-18 16:47] LABS: Potassium 4.8 mmol/L (3.5-5.1); Sodium 137 mmol/L (136-145)
[2025-09-18 16:48] LABS: Anion Gap 11 (5-15); Carbon Dioxide 29 mmol/L (20-31)
[2025-09-18 16:49] LABS: Calcium 9.2 mg/dL (8.7-10.4)
[2025-09-18 16:54] LABS: BUN/Creatinine Ratio 24.8 (10.0-20.0); Blood Urea Nitrogen 28 mg/dL (9-23); Chloride 97 mmol/L (98-107); Glucose 207 mg/dL (74-106); Magnesium 2.2 mg/dL (1.6-2.6)
--- NOTE | 2025-09-18 17:46 | DVHPN2 ---
Subjective Patient is here for COPD and CHF exacerbation, stated that she is better but does not feel comfortable going home tonight. Changes from previous H/P or p: No Changes Eyes: No Pain, No Vision change, No Conjunctivae inflammation, No Eyelid inflammation, No Other, No Redness ENT: No Ear pain, No Ear discharge, No Nose pain, No Nose discharge, No Nose congestion, No Mouth pain, No Mouth swelling, No Throat pain, No Throat swelling, No Other Cardiovascular: No Chest Pain, No Palpitations, No Orthopnea, No Paroxysmal Noc. Dyspnea, No Edema, No Lt Headedness; Other (Irregular heartbeats) Respiratory: No Cough, No Dry, No Shortness of breath, No SOB with excertion, No Wheezing, No Hemoptysis, No Pleuritic Pain, No Sputum, No Other Gastrointestinal: No Nausea, No Vomiting, No Abdominal Pain, No Diarrhea; C onstipation; No Melena, No Hematochezia, No Other Genitourinary: No Dysuria, No Frequency; Incontinence; No Hematuria, No Retention, No Other Musculoskeletal: No other, No neck pain, No shoulder pain, No arm pain, No back pain, No hand pain, No leg pain, No foot pain Skin: No Rash, No Lesions, No Jaundice, No Bruising, No Other Objective Vitals Vital Signs Date Time Temp Pulse Resp B/P (MAP) Pulse Ox O2 Delivery O2 Flow Rate FiO2 09/18/25 17:00 97.0 87 20 98/52 (67) 97 97.0 09/18/25 16:25 Nasal Cannula* 3 32 Intake/Output Intake and Output 09/18/25 07:00 Intake Total 740 ml Output Total 300 ml Balance 440 ml Intake Oral 740 ml Output Urine Total 300 ml # Voids 4 # Bowel Movements 5 Exam HEENT pupils are reactive Neck is supple CV is S1-S2 regular rate and rhythm Diminished breath sounds bases GI positive bowel sounds Extremity no edema [employer]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 General Appearance: Alert, Oriented X3, Cooperative, mild distress Lungs: Other (Bilateral crackles especially at the bases) Cardiovascular: Regular rate, Normal S1, Normal S2, No murmurs Abdomen: Normal bowel sounds, Soft, No tenderness Extremities: Other (2+ edema bilaterally) Medications Current Medications Medications Dose Ordered Sig/Radha Route Start Time Stop Time Status Last Admin Dose Admin Atorvastatin Calcium 20 mg HS PO 09/16/25 22:00 12/6/25 22:09 20 MG Famotidine 20 mg DAILY IV 09/16/25 10:00 09/18/25 10:28 20 MG Carvedilol 3.125 mg Q12HR PO 09/16/25 10:00 09/18/25 10:28 3.125 MG Amiodarone HCl 200 mg DAILY PO 09/16/25 10:00 09/18/25 10:29 200 MG Albuterol 2.5 mg Q4HPRN PRN NEB 09/16/25 01:30 09/18/25 16:25 2.5 MG Ipratropium [place] 0.5 mg Q4HPRN PRN NEB 09/16/25 01:30 09/18/25 16:25 0.5 MG Sodium Chloride 10 ml Q8HR IV 09/16/25 06:00 09/18/25 14:13 10 ML Docusate Sodium 100 mg BIDPRN PRN PO 09/16/25 01:30 Acetaminophen 650 mg Q6HP PRN PO 09/16/25 01:30 09/17/25 18:28 650 MG Apixaban 2.5 mg BID PO 09/16/25 10:00 09/17/25 22:11 2.5 MG Nitroglycerin 0.4 mg Q5MINP PRN SL 09/16/25 02:30 Morphine Sulfate 2 mg Q30M PRN IV 09/16/25 02:30 Ondansetron HCl 4 mg Q4HPRN PRN IV 09/16/25 11:15 Methylprednisolone Sodium Succinate 40 mg BID IV 09/16/25 22:00 09/18/25 10:28 40 MG Furosemide 40 mg BIDD IV 09/16/25 18:00 09/17/25 05:11 40 MG Albuterol 2.5 mg Q4HR NEB 09/16/25 14:00 Cancel Ipratropium [place] 0.5 mg Q4HR NEB 09/16/25 14:00 Cancel Ceftriaxone Sodium 50 ml @ 100 mls/hr DAILY@09 IV 09/18/25 09:00 09/18/25 10:27 100 MLS/HR Azithromycin 250 ml @ 125 mls/hr DAILY IV 09/18/25 10:00 Hold Acetaminophen/ Hydrocodone Bitart 1 tab Q4HPRN PRN PO 09/18/25 15:45 09/18/25 16:00 1 TAB Laboratory Results Laboratory Tests 09/17/25 06:24 09/18/25 16:30 Chemistry Test 09/18/25 16:30 Calcium Level 9.2 mg/dL (8.7-10.4) Magnesium Level 2.2 mg/dL (1.6-2.6) Assessment/Plan Assessment/Plan 84-year-old female presented to the hospital with a bilateral leg swelling and shortness of breaths found to have 1. Acute on chronic hypoxic respiratory failure secondary to acute CHF and acute COPD exacerbation 2. Acute COPD exacerbation 3. Acute on chronic CHF exacerbation with a systolic heart failure 4. Chronic AFib currently on Eliquis 5. Acute bronchitis/bilateral airspace disease in lower -and IV antibiotics, continue breathing treatment, Solu-Medrol, IV diuretics -plan of care discussed with the patient who understand and agreeable to plan. Plan discussed with: Patient My Orders Orders - NU YOUNG MD Procedure Category Date Status Time Hydrocodone-Acet PHA 09/18/25 In Process 5/325mg Tab ([place] 15:45 Date of Service: Sep 18, 2025 Billing Provider: NU YOUNG MD Common Visit Codes: [id number] INP/OBS CARE(HIGH) NU YOUNG MD Sep 18, 2025 17:46
[2025-09-19] VITALS (8 sets, daily range): BP systolic 107–111; BP diastolic 66–71; PULSE 77–92; RESP 16–20; TEMP 97.4–97.9; O2SAT 98–100
[2025-09-19] MEDS ORDERED: METH4PAK PO (08:58)
[2025-09-19] MEDS ORDERED: FURO1TAB31 PO (08:58)
--- NOTE | 2025-09-19 09:02 | DVHDS2 ---
Discharge Summary Date of Admission Sep 16, 2025 at 02:18 Date of Discharge: Sep 19, 2025 Labs/Diagnostic Data: Laboratory Results Test 09/18/25 16:30 09/17/25 06:24 09/16/25 02:21 09/15/25 23:37 Sodium Level 137 mmol/L (136-145) Potassium Level 4.8 mmol/L (3.5-5.1) Chloride Level 97 mmol/L (98-107) Carbon Dioxide Level 29 mmol/L (20-31) Anion Gap 11 (5-15) Blood Urea Nitrogen 28 mg/dL (9-23) Creatinine 1.13 mg/dL (0.550-1.02) Glomerular Filtration Rate Calc 48 mL/min (>90) BUN/Creatinine Ratio 24.8 (10.0-20.0) Serum Glucose 207 mg/dL (74-106) Calcium Level 9.2 mg/dL (8.7-10.4) Magnesium Level 2.2 mg/dL (1.6-2.6) White Blood Count 8.3 10^3/uL (4.4-10.8) Red Blood Count 3.43 10^6/uL (4.0-5.20) Hemoglobin 9.7 g/dL (12.2-16.2) Hematocrit 30.3 % (36.0-46.0) Mean Corpuscular Volume 88.1 fL (80.0-100.0) Mean Corpuscular Hemoglobin 28.2 pg (28.0-32.0) Mean Corpuscular Hemoglobin Concent 32.0 g/dL (32.0-36.0) Red Cell Distribution Width 16.4 % (11.8-14.3) Platelet Count 499 10^3/uL (140-450) Mean Platelet Volume 7.8 fL (6.9-10.8) Neutrophils (%) (Auto) 92.8 % (37.0-80.0) Lymphocytes (%) (Auto) 3.6 % (10.0-50.0) Monocytes (%) (Auto) 3.4 % (0.0-12.0) Eosinophils (%) (Auto) 0.0 % (0.0-7.0) Basophils (%) (Auto) 0.2 % (0.0-2.0) Neutrophils # (Auto) 7.7 10 ^3/uL (1.6-8.6) Lymphocytes # (Auto) 0.3 10 ^3/uL (0.4-5.4) Monocytes # (Auto) 0.3 10 ^3/uL (0-1.3) Eosinophils # (Auto) 0 10 ^3/uL (0-0.8) Basophils # (Auto) 0 10 ^3/uL (0-0.2) Nucleated Red Blood Cells 0.0 % Total Bilirubin 0.8 mg/dL (0.2-1.0) Aspartate Amino Transferase (AST) 16 U/L (13-40) Alanine Aminotransferase (ALT) 12 U/L (7-40) Alkaline Phosphatase 60 U/L (46-116) Total Protein 5.5 g/dL (5.7-8.2) Albumin 3.1 g/dL (3.2-4.8) Troponin I High Sensitivity 25 ng/L (</=34) B-Type Natriuretic Peptide 1133.24 pg/mL (0-100) Other Laboratory Tests 09/18/25 16:30 09/17/25 06:24 Brief Hx & Hospital Course: Final Diagnoses: \\ Acute hypoxic respiratory failure Acute on chronic heart failure with reduced ejection fraction COPD Chronic respiratory failure on home O2 Right ankle sprain rule out fracture Atrial fibrillation on Eliquis History of asthma Mixed hyperlipidemia Hypertension Peripheral vascular disease History of STEMI and coronary artery disease History of ovarian tumor Hypokalemia Chronic anemia She was diuresed with IV Lasix Steroids were given with O2, Med Nebs Her O2 improved She is on 3 liters [place] now She has home O2 DC home on Lasix 40 mg qd Medrol dose pack Resume home meds Resume home O2 f/u with PCP [facility] Condition at Discharge: Stable Final Diagnosis/Problems List Acute hypoxic respiratory failure Acute on chronic heart failure with reduced ejection fraction COPD Chronic respiratory failure on home O2 Right ankle sprain rule out fracture Atrial fibrillation on Eliquis History of asthma Mixed hyperlipidemia Hypertension Peripheral vascular disease History of STEMI and coronary artery disease History of ovarian tumor Hypokalemia Chronic anemia Discharge Disposition: Home SNF Discharge Will this Physician continue t: No Discharge Instruct/Medications Diet: Cardiac 2g Na,low cholest Activity: Light activity Follow Up/Referral: PCP [facility] Medications: Lasix 40 mg qd Medrol dose pack Resume home meds Scheduled Albuterol Sulfate (Albuterol Sulfate Hfa), 2 PUFF INH Q4HR PRN, (Reported) Albuterol Sulfate (Albuterol Sulfate Hfa), 216 MCG IN QIDP Amiodarone Hcl (Amiodarone Hcl), 200 MG PO BID Apixaban Base (Eliquis), 1 TAB PO BID, (Reported) Apixaban Base (Eliquis), 2.5 MG PO BID Aspirin (Aspir-81), 1 TAB PO DAILY, (Reported) Atorvastatin Calcium (Atorvastatin Calcium), 1 TAB PO DAILY, (Reported) Atorvastatin Calcium (Atorvastatin Calcium), 20 MG PO HS Carvedilol (Coreg), 3.125 MG PO BID Doxycycline (Monohydrate) (Doxycycline), 100 MG PO BID Empagliflozin (Jardiance), 10 MG PO DAILY Empagliflozin (Jardiance), 10 MG PO DAILY Famotidine (Pepcid Tablet), 1 TAB PO BID Furosemide (Furosemide), 1 TAB PO QAM Furosemide (Furosemide), 20 MG PO DAILY Furosemide (Lasix), 40 MG PO DAILY Hydrocodone-Acetaminophen (Hydrocodone Bitartrate/AC 5-325 mg), 1 TAB PO Q12HR PRN, (Reported) Hydrocodone-Acetaminophen (Hydrocodone Bitartrate/AC 5-325 mg), 1 TAB PO Q12HR PRN, (Reported) Ipratropium-Albuterol (Ipratropium [place]/Albut), 1 ROSA IN BID Lisinopril (Lisinopril), 1 TAB PO DAILY, (Reported) Lisinopril (Lisinopril), 5 MG PO DAILY Methylprednisolone (Medrol Dosepak), 4 MG PO UD Metoprolol Succinate (Metoprolol Succinate Er), 1 TAB PO DAILY, (Reported) Nitroglycerin (Ntrostat Sublingual), 0.4 MG SL PRN, (Reported) Pantoprazole Sodium Sesquihydr (Pantoprazole Sodium), 1 TAB PO DAILY, (Reported) Potassium Chloride (Potassium Chloride ER), 1 TAB PO DAILY Prednisone (Prednisone), 1 TAB PO BID, (Reported) Prednisone (Prednisone), 20 MG PO DAILY Spironolactone (Aldactone), 1 TAB PO DAILY Tiotropium [place] Monohydrate (Spiriva Respimat), 2 PUFF INH DAILY, (Reported) Scheduled PRN Benzonatate (Benzonatate), 1 CAP PO TID PRN for FOR COUGH, (Reported) Miscellaneous Medications Guaifenesin (Chest Congestion Relief), PO, (Reported) Loperamide Hcl (Loperamide Hcl), 2 MG PO, (Reported) Ondansetron HCl (Ondansetron), 4 MG PO, (Reported) Sumatriptan Succinate (Imitrex), 50 MG PO, (Reported) Discharge Statement: "Patient was advised to return to the ER or call 911 if any headaches, dizziness, shortness of breath, chest pain, abdominal pain, bleeding, fevers, or worsening of medical condition. Patient was counseled about treatment plan, medications, possible side effects, patientverbalized understanding. All questions were answered to the best of my ability. This discharge took greater then 30 minutes in planning, reviewing documentation, counseling the patient, and discussing with other team members." ASSESSMENT ASSESSMENT Assessment Acute hypoxic respiratory failure Acute on chronic heart failure with reduced ejection fraction COPD Chronic respiratory failure on home O2 Right ankle sprain rule out fracture Atrial fibrillation on Eliquis History of asthma Mixed hyperlipidemia Hypertension Peripheral vascular disease History of STEMI and coronary artery disease History of ovarian tumor Hypokalemia Chronic anemia Date of Service: Sep 19, 2025 Billing Provider: CARLOS BARON MD Common Visit Codes: NOT BILLABLE CARLOS BARON MD Sep 19, 2025 09:02
== END 2025-09-19 11:30 | disposition home health service (06) | DRG 291 ==
LOC: EDUNIT# 22:45 → EDBD 22:45 → ER 22:45 → OVERFLOW 09-16 02:18 → TELE-CENTR 09-16 04:08
PROVIDERS: ADMIT Internal Medicine Geriatric Medicine; ATTEND Internal Medicine Geriatric Medicine
DX: I11.0 Hypertensive heart disease with heart failure (principal); I50.23 Acute on chronic systolic (congestive) heart failure; J96.21 Acute and chronic respiratory failure with hypoxia; J44.0 Chronic obstructive pulmonary disease with (acute) lower respiratory infection; J44.1 Chronic obstructive pulmonary disease with (acute) exacerbation; D64.9 Anemia, unspecified; E78.2 Mixed hyperlipidemia; S93.401A Sprain of unspecified ligament of right ankle, initial encounter; Z79.01 Long term (current) use of anticoagulants; I73.9 Peripheral vascular disease, unspecified; I48.20 Chronic atrial fibrillation, unspecified; F41.9 Anxiety disorder, unspecified; E87.6 Hypokalemia; J20.9 Acute bronchitis, unspecified; I25.2 Old myocardial infarction; Z99.81 Dependence on supplemental oxygen; Z88.5 Allergy status to narcotic agent; Z79.82 Long term (current) use of aspirin; Z90.49 Acquired absence of other specified parts of digestive tract; Z90.710 Acquired absence of both cervix and uterus; X58.XXXA Exposure to other specified factors, initial encounter; Y93.89 Activity, other specified; Y92.89 Other specified places as the place of occurrence of the external cause; Y99.8 Other external cause status
CPT/HCPCS: 36415; 73600; 73630; 80048; 80053; 83735; 83880; 84484; 85025; 86850; 86900; 86901; 93005; 94640; 96374; 97110; 97116; 97163; 99291; G0378; J3490